=== PATIENT | female | born 1940 | race Caucasian/White ===

== ENCOUNTER 2020-12-10 08:12 | Outpatient (REF) | payer MEDICARE, MEDICAID, SELFPAY ==
[2020-12-10 09:36] LABS: Alanine Aminotransferase 22 U/L (0-31); Anion Gap 11 (12-20); Aspartate Amino Transferase 24 U/L (5-31); Blood Urea Nitrogen 11 mg/dL (9-16); Calcium 9.1 mg/dL (8.4-10.2); Carbon Dioxide 30 mmol/L (22-29); Chloride 101 mmol/L (96-108); Cholesterol 174 mg/dL; Estimated Glomerular Filt Rate > 60; Glucose Fasting 92 mg/dL (60-99); HDL Cholesterol 58 mg/dL; LDL Cholesterol Calculated 92 mg/dl; Potassium 4.7 mmol/l (3.3-5.1); Sodium 137 mmol/L (135-145); Triglycerides 122 mg/dL
[2020-12-10 10:01] LABS: Free T4 (Free Thyroxine) 1.17 ng/dL (0.71-1.85); Thyroid Stimulating Hormone 0.75 uIU/mL (0.32-4.0); Vitamin D 25-OH Total 27.1 ng/mL (>30)
== END 2020-12-10 08:13 | disposition home or self-care (01) ==
LOC: HO.LAB 08:12
PROVIDERS: PCP Internal Medicine; Visit Provider Internal Medicine
DX: I10 Essential (primary) hypertension (principal); E03.9 Hypothyroidism, unspecified; E78.5 Hyperlipidemia, unspecified; Z78.0 Asymptomatic menopausal state
CPT/HCPCS: 36415; 80048; 80061; 82306; 84439; 84443; 84450; 84460

== ENCOUNTER 2021-11-24 10:34 | Outpatient (REF) | payer MEDICARE, MEDICAID, SELFPAY ==
[2021-11-24 11:37] LABS: COVID-19 Test Negative (Negative)
== END 2021-11-24 10:35 | disposition home or self-care (01) ==
LOC: HO.LAB 10:34
PROVIDERS: Visit Provider Internal Medicine
DX: Z20.822 Contact with and (suspected) exposure to COVID-19 (principal)
CPT/HCPCS: 36415; 87635; C9803

== ENCOUNTER 2022-02-10 06:59 | Outpatient (REF) | payer MEDICARE, OTHER, SELFPAY ==
[2022-02-10 07:54] LABS: Alanine Aminotransferase 18 U/L (0-31); Aspartate Amino Transferase 22 U/L (5-31); Cholesterol 179 mg/dL; HDL Cholesterol 54 mg/dL; LDL Cholesterol Calculated 84 mg/dl; Triglycerides 208 mg/dL
[2022-02-10 08:18] LABS: Free T4 (Free Thyroxine) 1.12 ng/dL (0.71-1.85); Thyroid Stimulating Hormone 1.58 uIU/mL (0.32-4.0)
== END 2022-02-10 07:00 | disposition home or self-care (01) ==
LOC: HO.LAB 06:59
PROVIDERS: PCP Internal Medicine; Visit Provider Internal Medicine
DX: E03.9 Hypothyroidism, unspecified (principal); E78.5 Hyperlipidemia, unspecified; Z78.0 Asymptomatic menopausal state
CPT/HCPCS: 36415; 80061; 82306; 84439; 84443; 84450; 84460

== ENCOUNTER 2022-10-07 16:10 | Outpatient (REF) | payer MEDICARE, OTHER, SELFPAY ==
--- NOTE | ~2022-10-07 | US_ITS ---
EXAMINATION: US VENOUS ULTRASOUND WITH DOPPLER LOWER EXTREMITY, LEFT CLINICAL INFORMATION: Left lower extremity pain. COMPARISON: None TECHNIQUE: Ultrasound of the deep veins is performed from the hip to the calf with compression sonography and color and pulse Doppler assessment. Spectral analysis with color-flow imaging is performed. FINDINGS: There is normal venous compression and respiratory variation and augmented flow. The visualized common femoral vein, superficial femoral vein, profunda femoral vein, popliteal vein, and the trifurcation region shows no evidence of deep venous thrombosis. No left popliteal cyst. The subcutaneous soft tissues are unremarkable. If the patient's symptoms persist, followup ultrasound in 5 days 7 days might be of value to exclude proximal propagation from a non-visualized calf vein. US/US venous duplex LE LT IMPRESSION: No evidence of deep venous thrombosis in the visualized veins of the left lower extremity.
== END 2022-10-07 16:11 | disposition home or self-care (01) ==
LOC: HO.HMGCX 16:10
PROVIDERS: PCP Internal Medicine
DX: M79.662 Pain in left lower leg (principal)
CPT/HCPCS: 93971

== ENCOUNTER 2022-12-28 13:30 | Observation (INO) | payer MEDICARE, OTHER, SELFPAY ==
--- NOTE | ~2022-12-28 | CT_ITS ---
EXAMINATION: CT HEAD WITHOUT CONTRAST (STROKE PROTOCOL) CLINICAL INFORMATION: Stroke protocol. Expressive aphasia. COMPARISON: CTA head and neck 11/22/2019 TECHNIQUE: Contiguous axial imaging was performed from the skull base to vertex without intravenous administration of contrast. Additional 2-D coronal and sagittal reformatted images are generated on the CT workstation and uploaded to PACS. This CT examination was performed using dose optimization techniques as appropriate, variously including the following: *Automated exposure control *Adjustment of mA and/or kV according to patient size (this includes techniques or standardized protocols for targeted exams where dose is matched to indication/reason for exam; i.e. extremities or head) *Use of iterative reconstruction technique DLP: 711 mGy-cm FINDINGS: There is no intracranial hemorrhage, hematoma, or extra-axial fluid collection. The ventricles are normal in size. There is no hydrocephalus, edema, or mass effect. There are mild atrophic changes with prominence of the cortical sulci and fissures and cisterns. The sunshine-white matter differentiation appears normal. 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 Otherwise no mass lesion. There is no visible acute territorial infarct. The calvarium appears intact. There is no pneumocephalus or orbital emphysema. The visualized sinuses and middle ears and mastoid air cells show no significant mucosal thickening. There are no air-fluid levels. Results called to Dr. Peterson in the emergency department at [address]/CT head for stroke IMPRESSION: No acute intracranial abnormality.
--- NOTE | ~2022-12-28 | MR_ITS ---
MRI OF THE BRAIN WITHOUT IV CONTRAST INDICATION: Expressive aphasia. COMPARISON: Head CT and CTA head and neck performed earlier the same day. TECHNIQUE: Multiplanar multisequence MR imaging of the brain was obtained without IV contrast. FINDINGS: There is no hydrocephalus, extra-axial surface collection, or herniation. There is global cerebral volume loss and there is mild to moderate chronic microangiopathy. The major flow voids at the skull base are preserved. There is no acute infarct on diffusion-weighted imaging. There is no intracranial hemorrhage on the gradient recalled echo acquisition. There is a partially empty sella. The cerebellar tonsils are normally positioned. The cerebellum and brainstem are normal. The craniocervical junction is normal. Osseous marrow signal intensity is homogenous. The visualized soft tissues are unremarkable. MR/MR head/brain wo con IMPRESSION: No acute intracranial findings. No acute infarcts. There is global cerebral volume loss and there is mild to moderate chronic microangiopathy.
--- NOTE | ~2022-12-28 | XR_ITS ---
EXAMINATION: XR CHEST CLINICAL INFORMATION: Stroke. COMPARISON: None TECHNIQUE: 2 views of the chest were obtained. FINDINGS: No significant abnormality is noted involving the heart, lungs, mediastinum, bony thorax or soft tissues. XR/XR chest 2V IMPRESSION: Unremarkable chest examination.
--- NOTE | ~2022-12-28 | CT_ITS ---
EXAMINATION: CT ANGIOGRAM NECK WITH CONTRAST CT ANGIOGRAM BRAIN WITH CONTRAST CLINICAL INFORMATION: Stroke. Expressive aphasia. COMPARISON: Head CT 12/28/2022. TECHNIQUE: Test bolus sequences followed by intravenous administration 70 mL of Omnipaque 350. Helical imaging was performed in the axial plane from the thoracic inlet to the skull vertex. Delayed postcontrast imaging of the head was also performed. The data was processed at the development technologist workstation for generation of MIP sequences. Angled MIPs and volume rendered reformatted images were also generated at an offline 3D workstation under concurrent supervision. Stenoses are assessed in accordance with NASCET criteria unless otherwise indicated. This CT examination was performed using dose optimization techniques as appropriate, variously including the following: *Automated exposure control *Adjustment of mA and/or kV according to patient size (this includes techniques or standardized protocols for targeted exams where dose is matched to indication/reason for exam; i.e. 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 [There is no intracranial hemorrhage, hydrocephalus, extra-axial surface collection, midline shift, or other herniation pattern. [place] to white matter differentiation is diffusely maintained without evidence of an evolved acute territorial infarct. The basilar cisterns are preserved. No significant soft tissue abnormality. No acute osseous abnormality. The paranasal sinuses and the mastoid air cells are well aerated.] CERVICAL SOFT TISSUES AND LUNG APICES: Biapical pleural parenchymal scarring. There is multilevel cervical spondylosis. NECK CTA: [There is a classic 3 vessel configuration of the aortic arch. Proximal arch vessels are non-stenotic. The vertebral arteries are codominant. No significant ostial stenosis is visualized on either side. Both vertebral arteries are widely patent throughout their extracranial cervical course. Both common carotid arteries are normal in course and caliber.] Atherosclerotic calcification involving the carotid bifurcations bilaterally without significant stenosis involving the proximal internal carotid arteries on either side. BRAIN CTA: [There is normal opacification of major intracranial arteries. No focal flow-limiting stenosis nor discrete proximal large artery occlusion. No aneurysm. Timing of the contrast bolus allows assessment of the major dural venous sinuses, which all opacify normally] CT/CT angio head neck stroke IMPRESSION: No acute intracranial findings. No acute territorial infarcts. No significant arterial stenoses and no acute arterial occlusions within the head or neck. Covering provider paged with these findings at 2:22 PM on 12/28/2022.
[2022-12-28 13:35] VITALS: BP 154/70; BP 99/75; PULSE 71; PULSE 76; RESP 15; TEMP 37.2; O2SAT 95; O2SAT 97; BMI 27.1
[2022-12-28 13:37] LABS: Glucose, Whole Blood 91 mg/dL (60-115)
--- NOTE | 2022-12-28 13:37 | ECG_ITS ---
Test Reason : STROKE ALERT Blood Pressure : / mmHG Vent. Rate : 074 BPM Atrial Rate : 074 BPM P-R Int : 146 ms QRS Dur : 130 ms QT Int : 412 ms P-R-T Axes : 070 064 051 degrees QTc Int : 457 ms Normal sinus rhythm Right bundle branch block Abnormal ECG No previous ECGs available Referred By: Jorge Peterson Electronically Signed By:Enrique Harris
--- NOTE | 2022-12-28 13:38 | ED_ITS ---
HPI - Neuro Symptoms/Deficit General Chief Complaint: Stroke Stated Complaint: STROKE ALERT,LKW 2 HRS AGO,S/O HEADACHE,GARBLED Time Seen by Provider: 12/28/22 13:35 Source: patient, EMS and old records reviewed History of Present Illness HPI Narrative: Patient with new onset aphasia. Patient states she is having trouble finding words and is confirmed by EMS. According the patient she 1st noted the symptoms at 11:30. She was at [employer] and went to [employer] and she had a headache started noticed she could not speak right. The last time she was able to speak to someone was earlier this morning on the cellphone but she does not know what time. No prior history of stroke or headache like this. No nausea vomiting. No arm or leg weakness per patient. Related Data Home Medications Medication Instructions Recorded Confirmed timolol maleate 0.5 % eye drops 1 drp ophthalmic (eye) QAM 02/09/21 10/07/22 acetaminophen 500 mg tablet 500 mg PO Q6H PRN 02/17/22 10/07/22 (Tylenol Extra Strength) ibuprofen 200 mg tablet 400 mg PO Q8H 02/17/22 10/07/22 Previous Rx's Medication Instructions Recorded atorvastatin 20 mg tablet 20 mg PO DAILY #90 tabs 12/23/21 levothyroxine 88 mcg tablet 88 mcg PO DAILY #90 tabs 02/25/22 fluoxetine 10 mg capsule 10 mg PO DAILY #30 caps 09/04/22 fluoxetine 20 mg capsule 20 mg PO DAILY #30 caps 09/04/22 Allergies Allergy/AdvReac Type Severity Reaction Status Date / Time No Known Allergies Allergy Verified 10/07/22 14:59 Review of Systems Eyes: Comments: No vision trouble Cardiovascular: Comments: No chest pain or palpitation Respiratory: Comments: No difficulty breathing Gastrointestinal: Comments: No abdominal pain or vomiting PMFSH Past Medical History Medical History Acquired hypothyroidism Colonoscopy refused Dyslipidemia Hearing loss Mammogram declined Menopause Obsessive-compulsive disorder Ocular migraine Pain of left calf Surgical History No pertinent past surgical history Family History Family History Father Substance use disorder Brother Substance use disorder Brother Substance use disorder Social History Social History Housing Other:: subsidized housing Alcohol intake: never Patient Tobacco Use Status: Never used Tobacco e-Cigarette/Vaping Use: Never Used Advance Directives: Yes Advance Directives on File: Yes Advance Directives Date on File: 06/17/22 Current occupational status: retired Cognitive needs: No Hearing needs: Yes Vision needs: Yes Physical Exam Vital Signs: Vital Signs: Last Vital Signs Temp 98.8 F 12/28/22 16:03 Pulse 61 12/28/22 16:03 Resp 12 12/28/22 16:03 BP 139/77 12/28/22 16:03 Pulse Ox 100 12/28/22 16:03 O2 Del Method 12/28/22 16:03 BMI result Body Mass Index 27.1 Const: Other: Awake alert. No acute distress. Eyes: Other: Pupils equal round reactive to light. Extraocular muscles intact Resp: Other: No respiratory distress. Clear and equal bilaterally Cardio: Other: Regular rate and rhythm without murmurs rubs or gallops GI: Other: Soft nontender nondistended Skin: Other: Warm pink and dry Neuro: Other: Expressive aphasia with difficulty word finding. No facial droop Strength and upper arms equal bilaterally without pronator drift on a 12nd count. Lower extremity strength equal bilaterally. Medications Administered Generic Name Dose Route Start Last Admin Trade Name Freq PRN Reason Stop Dose Admin Sodium Chloride 500 mls @ 500 mls/hr 12/28/22 15:45 12/28/22 15:57 Ns IV 12/28/22 16:44 500 mls/hr .Q1H BRIT Administration Discontinued Medications Generic Name Dose Route Start Last Admin Trade Name Freq PRN Reason Stop Dose Admin Aspirin 300 mg 12/28/22 14:42 12/28/22 16:09 Aspirin 300 Mg Supp.Rect IN 12/28/22 14:43 Not Given ONCE ONE Iohexol 70 ml 12/28/22 14:07 12/28/22 14:07 Iohexol 350 Mg/Ml 100 Ml Infus..Btl IV 12/28/22 14:08 70 ml ONCE ONE Administration Ketorolac Tromethamine 30 mg 12/28/22 15:15 12/28/22 15:57 Ketorolac Tromethamine 15 Mg/Ml Vial IVPUSH 12/28/22 15:16 30 mg ONCE ONE Administration Metoclopramide HCl 10 mg 12/28/22 15:15 12/28/22 15:57 Metoclopramide Hcl 10 Mg/2 Ml Vial IVPUSH 12/28/22 15:16 10 mg ONCE ONE Administration Medical Decision Making Medical Decision Making MDM Narrative: Patient with headache and aphasia consistent with acute stroke, hemorrhagic versus thromboembolic. Last known well time is not specific. Time of symptom discovery was around 11 30, 2 hours ago which is when the headache started. The last time she is able to speak normally was this morning she thinks. She you think she had a cell phone conversation which was normal. She does not know the specific time of that however. Will do stroke protocol. Patient is likely not a thrombolytic candidate as her last known well time appears to be outside the window with time of symptom discovery approximately 2 hours prior to arrival.. Her NIH scale is very low as well. She does appear to be improving according to EMS. dental patient coordinator here to help evaluate patient. Await CT scan results 14:25. CT scan without contrast shows no abnormalities. CT angiography shows no large vessel occlusions Discussion with friends shows patient was confused at 09:30. Last known well time was sometime before that but is still unknown. She is well out of any thrombolytics window. She does not have a large vessel occlusion. Will treat with aspirin and hospitalize for further management 14:54. Neurology requesting MRI for potential mismatch. MRI ordered and patient brought for evaluation 16:44. MRI shows no obvious acute stroke. Chemistries are negative. Acute line while hospitalized patient for further workup and observation Lab Data 12/28/22 14:16 12/28/22 14:16 Labs: Lab Results 12/28/22 12/28/22 12/28/22 Range/Units 13:33 14:03 14:16 WBC 6.9 (4.8-10.8) X10*3/uL RBC 4.25 (4.20-5.50) X10*6/uL Hgb 13.2 (12.0-16.0) g/dl Hct 39.5 (37.0-47.0) % MCV 92.9 (80.0-98.0) fL MCH 31.1 (27.0-33.0) pg MCHC 33.4 (31.0-35.0) g/dl RDW 11.9 (11.0-16.0) % Plt Count 210 (160-400) X10*3/uL MPV 10.5 (9.4-12.3) fL Immature Gran % (Auto) 0.3 (0.0-0.4) % Neut % (Auto) 73.5 H (45-73) % Lymph % (Auto) 16.9 L (20-40) % [place] % (Auto) 6.6 (2-11) % Eos % (Auto) 2.0 (0-4) % Baso % (Auto) 0.7 (0-2) % Lymph # (Auto) 1.2 (1.2-4.9) X10*3/uL [place] # (Auto) 0.5 (0.1-1.2) X10*3/uL Eos # (Auto) 0.1 (0.0-0.4) X10*3/uL Baso # (Auto) 0.1 (0.0-0.2) X10*3/uL Abs Immat Gran (auto) 0.02 (0.00-0.03) X10*3/uL Absolute Neuts (auto) 5.0 (2.0-8.3) x10*3/uL Absolute Nucleated RBC 0.000 (0.0-0.012) X10*3/uL Nucleated RBC % (auto) 0.0 (0.0-0.2) /100WBC PT (10.0-13.1) SEC Whole Blood PT 13.1 (11.1-13.5) sec INR (0.9-1.1) Whole Blood INR 1.1 (0.9-1.1) D-Dimer High Sensitivty NG/ML Sodium (135-145) mmol/L Potassium (3.3-5.1) mmol/L Chloride (96-108) mmol/L Carbon Dioxide (22-29) mmol/L Anion Gap (12-20) BUN (9-16) mg/dL Creatinine (0.5-1.4) mg/dL Estim Creat Clear Calc Estimated GFR POC Glucose 91 (60-115) mg/dL Random Glucose (60-115) mg/dL Calcium (8.4-10.2) mg/dL Total Bilirubin (0.0-1.0) mg/dL AST (5-31) U/L ALT (0-31) U/L Alkaline Phosphatase (39-117) U/L Total Protein (6.5-8.0) g/dL Albumin (3.5-5.0) g/dL COVID-19 ([facility]) (Negative) COVID-19 Clin Com 12/28/22 12/28/22 12/28/22 Range/Units 14:16 14:16 14:16 WBC (4.8-10.8) X10*3/uL RBC (4.20-5.50) X10*6/uL Hgb (12.0-16.0) g/dl Hct (37.0-47.0) % MCV (80.0-98.0) fL MCH (27.0-33.0) pg MCHC (31.0-35.0) g/dl RDW (11.0-16.0) % Plt Count (160-400) X10*3/uL MPV (9.4-12.3) fL Immature Gran % (Auto) (0.0-0.4) % Neut % (Auto) (45-73) % Lymph % (Auto) (20-40) % [place] % (Auto) (2-11) % Eos % (Auto) (0-4) % Baso % (Auto) (0-2) % Lymph # (Auto) (1.2-4.9) X10*3/uL [place] # (Auto) (0.1-1.2) X10*3/uL Eos # (Auto) (0.0-0.4) X10*3/uL Baso # (Auto) (0.0-0.2) X10*3/uL Abs Immat Gran (auto) (0.00-0.03) X10*3/uL Absolute Neuts (auto) (2.0-8.3) x10*3/uL Absolute Nucleated RBC (0.0-0.012) X10*3/uL Nucleated RBC % (auto) (0.0-0.2) /100WBC PT 11.9 (10.0-13.1) SEC Whole Blood PT (11.1-13.5) sec INR 1.0 (0.9-1.1) Whole Blood INR (0.9-1.1) D-Dimer High Sensitivty 266 Cancelled NG/ML Sodium (135-145) mmol/L Potassium (3.3-5.1) mmol/L Chloride (96-108) mmol/L Carbon Dioxide (22-29) mmol/L Anion Gap (12-20) BUN (9-16) mg/dL Creatinine (0.5-1.4) mg/dL Estim Creat Clear Calc Estimated GFR POC Glucose (60-115) mg/dL Random Glucose (60-115) mg/dL Calcium (8.4-10.2) mg/dL Total Bilirubin (0.0-1.0) mg/dL AST (5-31) U/L ALT (0-31) U/L Alkaline Phosphatase (39-117) U/L Total Protein (6.5-8.0) g/dL Albumin (3.5-5.0) g/dL COVID-19 ([facility]) Negative (Negative) COVID-19 Clin Com See Note 12/28/22 Range/Units 15:54 WBC (4.8-10.8) X10*3/uL RBC (4.20-5.50) X10*6/uL Hgb (12.0-16.0) g/dl Hct (37.0-47.0) % MCV (80.0-98.0) fL MCH (27.0-33.0) pg MCHC (31.0-35.0) g/dl RDW (11.0-16.0) % Plt Count (160-400) X10*3/uL MPV (9.4-12.3) fL Immature Gran % (Auto) (0.0-0.4) % Neut % (Auto) (45-73) % Lymph % (Auto) (20-40) % [place] % (Auto) (2-11) % Eos % (Auto) (0-4) % Baso % (Auto) (0-2) % Lymph # (Auto) (1.2-4.9) X10*3/uL [place] # (Auto) (0.1-1.2) X10*3/uL Eos # (Auto) (0.0-0.4) X10*3/uL Baso # (Auto) (0.0-0.2) X10*3/uL Abs Immat Gran (auto) (0.00-0.03) X10*3/uL Absolute Neuts (auto) (2.0-8.3) x10*3/uL Absolute Nucleated RBC (0.0-0.012) X10*3/uL Nucleated RBC % (auto) (0.0-0.2) /100WBC PT (10.0-13.1) SEC Whole Blood PT (11.1-13.5) sec INR (0.9-1.1) Whole Blood INR (0.9-1.1) D-Dimer High Sensitivty NG/ML Sodium 139 (135-145) mmol/L Potassium 4.1 (3.3-5.1) mmol/L Chloride 104 (96-108) mmol/L Carbon Dioxide 28 (22-29) mmol/L Anion Gap 11 L (12-20) BUN 13 (9-16) mg/dL Creatinine 0.78 (0.5-1.4) mg/dL Estim Creat Clear Calc 51.1 Estimated GFR > 60 POC Glucose (60-115) mg/dL Random Glucose 109 (60-115) mg/dL Calcium 9.3 (8.4-10.2) mg/dL Total Bilirubin 0.8 (0.0-1.0) mg/dL AST 19 (5-31) U/L ALT 15 (0-31) U/L Alkaline Phosphatase 84 (39-117) U/L Total Protein 6.3 L (6.5-8.0) g/dL Albumin 3.9 (3.5-5.0) g/dL COVID-19 ([facility]) (Negative) COVID-19 Clin Com Discharge Plan Discharge Patient Disposition: Admitted As Inpatient Prescriptions: No Action atorvastatin 20 mg tablet 20 mg PO DAILY Qty: 90 3RF levothyroxine 88 mcg tablet 88 mcg PO DAILY Qty: 90 3RF fluoxetine 10 mg capsule 10 mg PO DAILY Qty: 30 5RF fluoxetine 20 mg capsule 20 mg PO DAILY Qty: 30 5RF timolol maleate 0.5 % drops 1 drp ophthalmic (eye) QAM acetaminophen [Tylenol Extra Strength] 500 mg tablet 500 mg PO Q6H PRN ibuprofen 200 mg tablet 400 mg PO Q8H
[2022-12-28] MEDS: iohexoL 350 MG/ML 100 ML INFUS..BTL 70 ML IV (14:07)
[2022-12-28 14:12] LABS: Prothrombin Time Whole Bld POC 13.1 sec (11.1-13.5); ~PT, ~INR - Anti Coag Clinic 1.1 (0.9-1.1)
[2022-12-28 14:22] LABS: MANUAL DIFF FLAG NO
[2022-12-28 14:26] LABS: Basophils Absolute Auto 0.1 X10*3/uL (0.0-0.2); Basophils Percent Auto 0.7 % (0-2); Eosinophils Absolute Auto 0.1 X10*3/uL (0.0-0.4); Hematocrit 39.5 % (37.0-47.0); Hemoglobin 13.2 g/dl (12.0-16.0); Imm Gran Abs Auto 0.02 X10*3/uL (0.00-0.03); Imm Gran Pct Auto 0.3 % (0.0-0.4); Lymphocytes Absolute Auto 1.2 X10*3/uL (1.2-4.9); Lymphocytes Percent Auto 16.9 % (20-40); Mean Corpuscular HGB Conc 33.4 g/dl (31.0-35.0); Mean Corpuscular Hemoglobin 31.1 pg (27.0-33.0); Mean Corpuscular Volume 92.9 fL (80.0-98.0); Mean Platelet Volume 10.5 fL (9.4-12.3); Monocytes Absolute Auto 0.5 X10*3/uL (0.1-1.2); Monocytes Percent Auto 6.6 % (2-11); Neutrophils Percent Auto 73.5 % (45-73); Platelet Count 210 X10*3/uL (160-400); Red Blood Count 4.25 X10*6/uL (4.20-5.50); Red Cell Distribution Width 11.9 % (11.0-16.0); White Blood Count 6.9 X10*3/uL (4.8-10.8)
[2022-12-28 14:39] LABS: COVID-19 Test Negative (Negative); IDNOW Serial# 16C4AD1C
--- NOTE | 2022-12-28 14:47 | PC.NURSE ---
patient to MRI with crm coordinator.
[2022-12-28 14:57] LABS: Prothrombin Time 11.9 SEC (10.0-13.1)
[2022-12-28 14:59] LABS: D Dimer High Sensitivity 266 NG/ML
--- NOTE | 2022-12-28 15:40 | MHC.STROKE ---
Addendum entered by Callie Mcnamara RN 12/29/22 11:26: I ROUNDED WITH DR LOPEZ THIS AM, PATIENT HAS A HISTORY OF MIGRAINES AND HAS BEEN UNDER A GREAT DEAL OF STRESS. STROKE EDUCATION WAS PROVIDED AND REINFORCED, SHE C/O ANXIETY AND SHE WAS STILL EXHIBITING SIGNS OF ANXIETY. REFER TO DR LOPEZ'S NOTE. Original Note: 1325 EMS PRE-NOTIFIED STROKE ALERT , ARRIVED AT [facility] [id number]. SEEN BY PROVIDER NIHSS =4, WORDING FINDING AND SLIGHT LOC, UNABLE TO ANSWER QUESTIONS ACCURATELY. DIRECT TO CT AND CTA H-N, NO BLEED, NO LVO, PATIENT BACK IN ROOM 5, C/0 SEVERE GROSSMAN. CLARIFYING LKW, THE TIME SEEMS TO BE CHANGING. 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 SHE WOKE THIS AM AT 0700, USED THE COMPUTER AND SENT SOME EMAILS. SHE LEFT HER RESIDENCE AT 0930 AND WAS SEEN BY HER FRIEND BRENDA AND SHE ONLY SAID ONE WORD TO HER WHICH WAS UNUSUAL . SHE WENT TO CONFESSION AND THE LANDSCAPE ARCHITECTURE TEACHER THOUGHT HER WORDS WERE SLURRED THIS WAS AROUND 1030, THEN SHE DROVE BACK TO HER RESIDENCE AT 1130 SPOKE WITH SOMEONE THERE AND WAS TOLD TO PULL THE EMERGENCY LIM. THIS WAS AROUND 1130. HER SYMPTOMS SEEM TO STUTTER, SPEAKING CLEARLY THEN SOMEWHAT DYSARTHRIC AND APHASIC. I FAILED HER ON THE INITIAL SWALLOW SCREEN BECAUSE SHE COULD NOT FOLLOW DIRECTIONS ENOUGH TO CLEAR HER THROAT. I REVIEWED THE CASE WITH DR LOPEZ, BASED ON THE CTA HE IS RECOMMENDING A STAT NON-CONTRAST MRI TO IDENTIFY IF THERE IS A NEW STROKE AND/OR MISMATCH. I BROUGHT HER TO MRI, 1432 REVIEWED THE SCAN WITH DR. LOPEZ, NO TPA BASED ON NO NEW STROKE IDENTIFIED. THIS WAS COMMUNICATED TO DR BARRIGA, AND RN. SHE THEN PASSED THE SWALLOW SCREEN THE SECOND TIME, SHE IS STILL C/O A SEVERE HEADACHE, LIGHT SENSITIVE. SHE TOLERATED THE MRI, I REVIEWED THE RESULTS WITH HER AND HER FRIEND.
[2022-12-28] MEDS: Metoclopramide HCl 10 MG/2 ML VIAL IVPUSH (15:57)
[2022-12-28] MEDS: 0.9 % Sodium Chloride 500 ML IV (15:57)
[2022-12-28] MEDS: Ketorolac Tromethamine 15 MG/ML VIAL 30 MG IVPUSH (15:57)
[2022-12-28 16:03] VITALS: BP 139/77; PULSE 61; RESP 12; TEMP 37.1; O2SAT 100
--- NOTE | 2022-12-28 16:13 | PC.NURSE ---
expressive aphasia is starting to clear. passed bedside swallow screen.
[2022-12-28 16:29] LABS: Alanine Aminotransferase 15 U/L (0-31); Albumin Level 3.9 g/dL (3.5-5.0); Alkaline Phosphatase 84 U/L (39-117); Anion Gap 11 (12-20); Aspartate Amino Transferase 19 U/L (5-31); Bilirubin Total 0.8 mg/dL (0.0-1.0); Blood Urea Nitrogen 13 mg/dL (9-16); Calcium 9.3 mg/dL (8.4-10.2); Carbon Dioxide 28 mmol/L (22-29); Chloride 104 mmol/L (96-108); Creatinine Clr Calc Pharmacy 51.1; Estimated Glomerular Filt Rate > 60; Glucose Random 109 mg/dL (60-115); Potassium 4.1 mmol/L (3.3-5.1); Sodium 139 mmol/L (135-145); Total Protein 6.3 g/dL (6.5-8.0)
[2022-12-28 16:50] LABS: Appearance Urine Clear; Color Urine Yellow; Glucose Urine UA Negative (Negative); Leukocyte Esterase Urine Negative (Negative); Nitrite Urine Negative (Negative); Specific Gravity - Urine >= 1.030 (1.005-1.025); UMIC TRIGGER UACC YES; Urine Blood Trace (Negative); Urine Ketones Negative (Negative); Urine Protein Negative (Neg-Trace)
[2022-12-28 16:51] LABS: TSH reflex Free T4 0.25 uIU/mL (0.32-4.0)
[2022-12-28 17:08] LABS: Bacteria Urine None Seen (None Seen); Hyaline Casts Urine 0-2 /LPF (0-2); RBC Urine 0-2 /HPF (0-2); Squamous Epithelial Cell Urine 0-2 /HPF (0-2); WBC Urine 0-5 /HPF (0-5)
--- NOTE | 2022-12-28 17:12 | PC.NURSE ---
patient ambulated to the bathroom with 1 assist. gait is steady. Speech therapy at the bedside. pt passed swallow exam
--- NOTE | 2022-12-28 17:28 | PHA.MEDREC ---
Pharmacy Consult ? Medication Reconciliation Pharmacy has completed the medication reconciliation. Spoke with patient in ED who knew all meds. Patient took medications this morning.
[2022-12-28 17:51] LABS: Free T4 (Free Thyroxine) 1.24 ng/dL (0.71-1.85)
[2022-12-28] MEDS: HYDROmorphone HCl 0.5 MG/0.5 ML SYRINGE 0.25 MG IVPUSH (18:25)
--- NOTE | 2022-12-28 19:19 | MHC.SL.SWA ---
Speech Pathologist Impression: Oral Phase Dysphagia Risk of Aspiration Due to: Dysphasia Diet Status: Liquid Consistency and Strategies for Safe Swallow: Liquid Intake Recommendation: Thin Liquid Intake Strategies: Unrestricted Solid Food Consistency: Dietary Recommendations: Chopped/Advanced (NDD3) Additional Modifications to Solid Foods: Patient can independently feed self. Check that patient has at least upper dentures in place for meal, provide oral care for denture use. Oral Medication Intake: Whole with Liquid Please contact the pharmacy regarding appropriate crushable or liquid drug formulations that are available whenever modified delivery is recommended. Compensatory Strategies and Precautions to be Taken for Safe Swallow: Liquids from Cup Small Bites and Sips Alternate Liquids/Solids Supervision While Eating and Drinking for Safe Swallow: None Needed Foods to Avoid: Hard, difficult to chew solids. Swallowing Recommended Treatments: Compens. Strategy Educat. Recommendation for Speech: Inpatient Speech Therapy Comment: Patient presents with swallow mostly WFL, with mild oral phase issues due to edentulous state/use of upper dentures only. Recommend UPGRADE diet to Chopped/Advanced (NDD3) for ease of mastication with THIN liquids, Pills whole with liquid. Recommend Speech/Language/Cognitive evaluation to further assess patients c/o difficulty understanding/making sense of what is being said. MEDICAL PRACTITIONERS to f/u one time for toleration of diet. ED MD and RN made aware of recommendations in person (at time of assessment, patient had not been assigned hospitalist). Frequency/Duration: 1 f/u for toleration of diet. Recommend speech/language/cognitive assessment. Date Range for Service Req: Timeline to reassess: Soil Analyst Clinican/Clinical Fellow: No Supervisory Statement: I have reviewed and agree with the student/clinical fellow's documentation: N/A Speech Language Pathologist: Rachel Kasper M.A., [facility]
[2022-12-28 19:33] VITALS: BP 107/50; PULSE 75; RESP 10; TEMP 37.3; O2SAT 95
--- NOTE | 2022-12-28 19:38 | PM.IMHP ---
History of Present Illness Date of Service: 12/28/22 Chief Complaint: Expressive aphasia This is a 82-year-old female with pertinent history of mixed hyperlipidemia, hypothyroidism, ocular migraine who presents to the emergency department for evaluation of expressive aphasia. Patient [place] [employer] around 12[place]00 when she had severe headache and could not speak. Patient states the headache was on the left side. Does have history of migraine. Patient states the inability to speak lasted for about 2 hours and has improved through today. No history of similar symptoms in the past. May have had nausea but denies vomiting. No fever, chills, tongue bite, jerking movement of extremities, urinary or bowel incontinence. She denies chest discomfort, palpitations, shortness of breath. No focal extremity weakness. The emergency department, neurology was consulted who recommended MRI which was negative for acute CVA. Review of Systems Constitutional: Constitutional: Reports no additional constitutional complaints and Reports headache(s) ENT: Reports headache(s) Cardiovascular: Cardiovascular: Reports no additional cardiovascular complaints Respiratory: Respiratory: Reports no additional respiratory complaints Gastrointestinal: Gastrointestinal: Reports no additional gastrointestinal complaints Genitourinary: Genitourinary: Reports no additional female genitourinary complaints Neurologic: Reports Abnormal speech present and Reports headache(s) [facility] Medical History Acquired hypothyroidism Colonoscopy refused Dyslipidemia Hearing loss Mammogram declined Menopause Obsessive-compulsive disorder Ocular migraine Pain of left calf Family History Father Substance use disorder Brother Substance use disorder Brother Substance use disorder Surgical History No pertinent past surgical history Social History Housing Other:: subsidized housing Alcohol intake: never Patient Tobacco Use Status: Never used Tobacco e-Cigarette/Vaping Use: Never Used Advance Directives: Yes Advance Directives on File: Yes Advance Directives Date on File: 06/17/22 Current occupational status: retired Cognitive needs: No Hearing needs: Yes Vision needs: Yes Meds Allergies Allergy/AdvReac Type Severity Reaction Status Date / Time No Known Allergies Allergy Verified 10/07/22 14:59 Active Medications: Current Medications Pharmacy Consult (Consult Rx Perform Med Rec) 1 each MISCELLANE ONCE PRN PRN Reason: Consult order Home Medications Medication Instructions Recorded Confirmed Last Taken Type timolol maleate 0.5 % eye drops 1 drp ophthalmic (eye) DAILY 02/09/21 12/28/22 12/28/22 History acetaminophen 500 mg tablet 500 mg PO Q6H PRN Pain (Scale 02/17/22 12/28/22 12/28/22 History (Tylenol Extra Strength) Score 1-3) atorvastatin 20 mg tablet 20 mg PO BEDTIME 12/28/22 12/28/22 12/27/22 History cholecalciferol (vitamin D3) 25 25 mcg PO DAILY 12/28/22 12/28/22 12/28/22 History mcg (1,000 unit) tablet (Vitamin D3) levothyroxine 88 mcg tablet 88 mcg PO DAILY@0630 12/28/22 12/28/22 12/28/22 History Physical Exam Vital Signs and Narrative: Vital Signs: Last Vital Signs Temp 99.2 F 12/28/22 19:33 Pulse 75 12/28/22 19:33 Resp 10 L 12/28/22 19:33 BP 107/50 L 12/28/22 19:33 Pulse Ox 95 12/28/22 19:33 O2 Del Method 12/28/22 19:33 BMI result Body Mass Index 27.1 Elderly female lying in bed in no distress Neck supple, no JVD Regular rate and rhythm, S1-S2 heard Regular breath sounds bilaterally, no wheezing or crackles appreciated Abdomen soft nontender, no guarding, no rigidity Patient is awake, alert and oriented to self, place, time and person ; strength 5/5 in bilateral upper and lower extremity, no aphasia, no pronator drift, no nystagmus, tongue and uvula midline Psych: Normal mood No pedal edema Neuro: Speech: Abnormal speech present Results Labs 12/28/22 14:16 12/28/22 15:54 Labs: Laboratory Results - last 24 hr 12/28/22 12/28/22 12/28/22 13:33 14:03 14:16 MCV 92.9 MCH 31.1 MCHC 33.4 RDW 11.9 Plt Count 210 MPV 10.5 Immature Gran % (Auto) 0.3 Neut % (Auto) 73.5 H Lymph % (Auto) 16.9 L [place] % (Auto) 6.6 Eos % (Auto) 2.0 Baso % (Auto) 0.7 Lymph # (Auto) 1.2 [place] # (Auto) 0.5 Eos # (Auto) 0.1 Baso # (Auto) 0.1 Abs Immat Gran (auto) 0.02 Absolute Neuts (auto) 5.0 Absolute Nucleated RBC 0.000 Nucleated RBC % (auto) 0.0 PT Whole Blood PT 13.1 INR Whole Blood INR 1.1 D-Dimer High Sensitivty Anion Gap Estim Creat Clear Calc Estimated GFR POC Glucose 91 Random Glucose Calcium Total Bilirubin AST ALT Alkaline Phosphatase Total Protein Albumin TSH Free T4 Urine Color Urine Appearance Urine pH Ur Specific [place] Urine Protein Urine Glucose (UA) Urine Ketones Urine Blood Urine Nitrite Ur Leukocyte Esterase Urine RBC Urine WBC Ur Squamous Epith Cells Urine Bacteria Hyaline Casts COVID-19 ([facility]) COVID-19 Clin Com 12/28/22 12/28/22 12/28/22 14:16 14:16 14:16 MCV MCH MCHC RDW Plt Count MPV Immature Gran % (Auto) Neut % (Auto) Lymph % (Auto) [place] % (Auto) Eos % (Auto) Baso % (Auto) Lymph # (Auto) [place] # (Auto) Eos # (Auto) Baso # (Auto) Abs Immat Gran (auto) Absolute Neuts (auto) Absolute Nucleated RBC Nucleated RBC % (auto) PT 11.9 Whole Blood PT INR 1.0 Whole Blood INR D-Dimer High Sensitivty 266 Cancelled Anion Gap Estim Creat Clear Calc Estimated GFR POC Glucose Random Glucose Calcium Total Bilirubin AST ALT Alkaline Phosphatase Total Protein Albumin TSH Free T4 Urine Color Urine Appearance Urine pH Ur Specific [place] Urine Protein Urine Glucose (UA) Urine Ketones Urine Blood Urine Nitrite Ur Leukocyte Esterase Urine RBC Urine WBC Ur Squamous Epith Cells Urine Bacteria Hyaline Casts COVID-19 ([facility]) Negative COVID-19 Clin Com See Note 12/28/22 12/28/22 12/28/22 15:54 15:54 16:42 MCV MCH MCHC RDW Plt Count MPV Immature Gran % (Auto) Neut % (Auto) Lymph % (Auto) [place] % (Auto) Eos % (Auto) Baso % (Auto) Lymph # (Auto) [place] # (Auto) Eos # (Auto) Baso # (Auto) Abs Immat Gran (auto) Absolute Neuts (auto) Absolute Nucleated RBC Nucleated RBC % (auto) PT Whole Blood PT INR Whole Blood INR D-Dimer High Sensitivty Anion Gap 11 L Estim Creat Clear Calc 51.1 Estimated GFR > 60 POC Glucose Random Glucose 109 Calcium 9.3 Total Bilirubin 0.8 AST 19 ALT 15 Alkaline Phosphatase 84 Total Protein 6.3 L Albumin 3.9 TSH 0.25 L Free T4 1.24 Urine Color Yellow Urine Appearance Clear Urine pH 6.0 Ur Specific [place] >= 1.030 H Urine Protein Negative Urine Glucose (UA) Negative Urine Ketones Negative Urine Blood Trace H Urine Nitrite Negative Ur Leukocyte Esterase Negative Urine RBC 0-2 Urine WBC 0-5 Ur Squamous Epith Cells 0-2 Urine Bacteria None Seen Hyaline Casts 0-2 COVID-19 ([facility]) COVID-19 Clin Com Imaging Radiologist's Impressions: Impressions Head CT 12/28/22 13:49 IMPRESSION: No acute intracranial abnormality. Head/Neck CTA 12/28/22 14:08 IMPRESSION: No acute intracranial findings. No acute territorial infarcts. No significant arterial stenoses and no acute arterial occlusions within the head or neck. Covering provider paged with these findings at 2:22 PM on 12/28/2022. Brain MRI 12/28/22 15:25 IMPRESSION: No acute intracranial findings. No acute infarcts. There is global cerebral volume loss and there is mild to moderate chronic microangiopathy. Chest X-Ray 12/28/22 16:35 IMPRESSION: Unremarkable chest examination. Assessment and Plan (1) Aphasia: Status: Acute Plan This is a 82-year-old female with pertinent history of mixed hyperlipidemia, hypothyroidism, ocular migraine who presents to the emergency department for evaluation of expressive aphasia. #. Headache with transient expressive aphasia: Unclear etiology. ?complex migraine. ?HaNDL syndrome. Neurology consulted from the ER, appreciate assistance #. Hypothyroidism: Continue Synthroid #. Mixed hyperlipidemia: On atorvastatin DVT prophylaxis: Lovenox 40 mg daily Full code Regular diet Time Spent With Patient Time: Total time managing care of this patient today ____ minutes. Quality Stroke Does the patient have a stroke diagnosis?: No VTE Prior VTE?: No VTE Risk Level:: Medical - moderate - high VTE Device Contraindication: Treatment Not Indicated VTE Drug Contraindication: N/A - Med Ordered
[2022-12-28 20:47] VITALS: BP 118/60; PULSE 84; RESP 14
--- NOTE | 2022-12-28 21:27 | PC.NURSE ---
pt resting comfortably on stretcher. pt sitting up right eating meal. swallowing food well. no new needs at this time
[2022-12-28] MEDS: Enoxaparin Sodium 40 MG/0.4 ML SYRINGE SUBCUT (21:57)
[2022-12-28] MEDS: Atorvastatin Calcium 20 MG TABLET PO (21:57)
[2022-12-28] MEDS: 0.9 % Sodium Chloride Flush 3 ML SYRINGE IVFLUSH (21:58)
[2022-12-28 22:01] VITALS: BMI 26.2
[2022-12-28 23:57] VITALS: BP 119/57; PULSE 65; RESP 20; TEMP 36.7; O2SAT 99
[2022-12-29 03:35] VITALS: BP 114/56; PULSE 70; RESP 20; TEMP 36.7; O2SAT 98
[2022-12-29 06:23] LABS: MANUAL DIFF FLAG NO
[2022-12-29 06:29] LABS: Basophils Absolute Auto 0.1 X10*3/uL (0.0-0.2); Basophils Percent Auto 0.8 % (0-2); Eosinophils Absolute Auto 0.3 X10*3/uL (0.0-0.4); Eosinophils Percent Auto 5.5 % (0-4); Hematocrit 37.6 % (37.0-47.0); Hemoglobin 12.4 g/dl (12.0-16.0); Imm Gran Abs Auto 0.02 X10*3/uL (0.00-0.03); Imm Gran Pct Auto 0.3 % (0.0-0.4); Lymphocytes Absolute Auto 1.3 X10*3/uL (1.2-4.9); Lymphocytes Percent Auto 21.8 % (20-40); Mean Corpuscular Hemoglobin 30.5 pg (27.0-33.0); Mean Corpuscular Volume 92.6 fL (80.0-98.0); Mean Platelet Volume 10.3 fL (9.4-12.3); Monocytes Absolute Auto 0.6 X10*3/uL (0.1-1.2); Neutrophils Absolute Auto 3.7 x10*3/uL (2.0-8.3); Neutrophils Percent Auto 61.6 % (45-73); Platelet Count 188 X10*3/uL (160-400); Red Blood Count 4.06 X10*6/uL (4.20-5.50); Red Cell Distribution Width 11.9 % (11.0-16.0)
[2022-12-29] MEDS: Levothyroxine Sodium 88 MCG TABLET PO (06:50)
[2022-12-29 07:03] LABS: Cholesterol 181 mg/dL; HDL Cholesterol 51 mg/dL; LDL Cholesterol Calculated 100 mg/dl; Triglycerides 150 mg/dL
[2022-12-29 07:10] LABS: Anion Gap 13 (12-20); Blood Urea Nitrogen 15 mg/dL (9-16); Carbon Dioxide 26 mmol/L (22-29); Chloride 106 mmol/L (96-108); Estimated Glomerular Filt Rate > 60; Glucose Random 84 mg/dL (60-115); Potassium 4.5 mmol/L (3.3-5.1); Sodium 140 mmol/L (135-145)
[2022-12-29 07:20] VITALS: BP 103/59; PULSE 80; RESP 20; TEMP 37.1; O2SAT 96
[2022-12-29] MEDS: 0.9 % Sodium Chloride Flush 3 ML SYRINGE IVFLUSH (08:49)
[2022-12-29] MEDS: timoloL maleate 0.5 % Oph Sol 5 ML DRBTL 1 DROP EYE-BOTH (08:50)
[2022-12-29] MEDS: Cholecalciferol (Vitamin D3) 25 MCG TABLET PO (08:50)
--- NOTE | 2022-12-29 10:37 | MHC.CM.PN ---
pt lives at [facility] she is independent covid vax x 5 has own ride home dc plan home no servceis
[2022-12-29] MEDS: Aspirin Enteric Coated 81 MG TABLET.DR PO (10:48)
--- NOTE | 2022-12-29 12:10 | MHC.SLORD ---
Addendum entered and electronically signed by Tonia Reyes MA, CCC-CEO ZIFF DAVIS 12/30/22 10:33: D.S. Original Note: Speech Language Pathology Order Status: Attempted to see pt late in AM, pt sitting at table waiting for d/c paperwork. Therefore, pt not seen for dysphagia tx or speech/lang/cog screening.
--- NOTE | 2022-12-29 12:43 | PM.NEUROCN ---
History of Present Illness Data of Consult Service Date: 12/29/22 Primary Care Provider: Ivy Lee MD HPI Reason for consult: Transient inability to speak This is a 82-year-old female with history of mixed hyperlipidemia, hypothyroidism, ocular migraine with no associated headache, who was under extreme stress and very upset with the who presented to the emergency department for evaluation of expressive aphasia.? Patient states she was at the [employer] around 12:00 when she had severe headache and could not speak.?She first noticed difficulty speaking after 9:30 in the morning and then developed a bad headache. She did not have the usual optiical migraines. The difficulty speaking resolved after 2 hours and she feels back to normal. She had a CT CTA and an MRI of the brain, which were unremarkable. No acute stroke and no occlusive disease was seen. No history of similar symptoms in the past. Review of Systems Constitutional: Constitutional: Reports no additional constitutional complaints and Reports headache(s) ENT: Reports headache(s) Cardiovascular: Cardiovascular: Reports no additional cardiovascular complaints Respiratory: Respiratory: Reports no additional respiratory complaints Gastrointestinal: Gastrointestinal: Reports no additional gastrointestinal complaints Neurologic: Reports Abnormal speech present and Reports headache(s) PMFSH Past Medical History Medical History Acquired hypothyroidism Colonoscopy refused Dyslipidemia Hearing loss Mammogram declined Menopause Obsessive-compulsive disorder Ocular migraine Pain of left calf Family History Family History Father Substance use disorder Brother Substance use disorder Brother Substance use disorder Surgical History Surgical History No pertinent past surgical history Social History Social History Household Members: None Housing: Other Housing Other:: independent living (in own apartment) Do you presently have visiting nurse or other home services: No Alcohol intake: never Patient Tobacco Use Status: Never used Tobacco e-Cigarette/Vaping Use: Never Used Advance Directives Date on File: 06/17/22 service: No Current occupational status: retired Cognitive needs: No Hearing needs: Yes Vision needs: Yes Meds Allergies Allergy/AdvReac Type Severity Reaction Status Date / Time No Known Allergies Allergy Verified 10/07/22 14:59 Active Medications: Current Medications Acetaminophen (Acetaminophen 325 Mg Tablet) 650 mg PO Q6H PRN PRN Reason: Pain, Mild (Pain Scale 1-3) Aspirin (Aspirin Enteric Coated 81 Mg Tablet.Dr) 81 mg PO DAILY [facility] Last Admin: 12/29/22 10:48 Dose: 81 mg Atorvastatin Calcium (Atorvastatin Calcium 20 Mg Tablet) 20 mg PO BEDTIME [facility] Last Admin: 12/28/22 21:57 Dose: 20 mg Enoxaparin Sodium (Enoxaparin Sodium 40 Mg/0.4 Ml Syringe) 40 mg SUBCUT Q24H [facility] Last Admin: 12/28/22 21:57 Dose: 40 mg Levothyroxine Sodium (Levothyroxine Sodium 88 Mcg Tablet) 88 mcg PO DAILY@0630 [facility] Last Admin: 12/29/22 06:50 Dose: 88 mcg Melatonin (Melatonin 3 Mg Tablet) 6 mg PO BEDTIME PRN PRN Reason: Insomnia Ondansetron HCl (Ondansetron Hcl 4 Mg/2 Ml Vial) 4 mg IVPUSH Q8H PRN PRN Reason: Nausea and Vomiting Pharmacy Consult (Consult Rx Perform Med Rec) 1 each MISCELLANE ONCE PRN PRN Reason: Consult order Sodium Chloride (0.9 % Sodium Chloride Flush 3 Ml Syringe) 3 ml IVFLUSH QSHIFT [facility] Last Admin: 12/29/22 08:49 Dose: 3 ml Timolol Maleate (Timolol Maleate 0.5 % Oph [place] 5 Ml Drbtl) 1 drop EYE-BOTH DAILY [facility] Last Admin: 12/29/22 08:50 Dose: 1 drop Vitamin D (Cholecalciferol (Vitamin D3) 25 Mcg Tablet) 25 mcg PO DAILY [facility] Last Admin: 12/29/22 08:50 Dose: 25 mcg Home Medications Medication Instructions Recorded Confirmed Last Taken Type timolol maleate 0.5 % eye drops 1 drp ophthalmic (eye) DAILY 02/09/21 12/28/22 12/28/22 History acetaminophen 500 mg tablet 500 mg PO Q6H PRN Pain (Scale 02/17/22 12/28/22 12/28/22 History (Tylenol Extra Strength) Score 1-3) atorvastatin 20 mg tablet 20 mg PO BEDTIME 12/28/22 12/28/22 12/27/22 History cholecalciferol (vitamin D3) 25 25 mcg PO DAILY 12/28/22 12/28/22 12/28/22 History mcg (1,000 unit) tablet (Vitamin D3) levothyroxine 88 mcg tablet 88 mcg PO DAILY@0630 12/28/22 12/28/22 12/28/22 History Physical Exam Vital Signs: Vital Signs: Last Vital Signs Temp 98.7 F 12/29/22 07:20 Pulse 80 12/29/22 07:20 Resp 20 12/29/22 07:20 BP 103/59 L 12/29/22 07:20 Pulse Ox 96 12/29/22 07:20 O2 Del Method 12/29/22 07:20 BMI result Body Mass Index 26.2 Const: Other: Awake alert. No acute distress. Eyes: Other: Pupils equal round reactive to light. Extraocular muscles intact Resp: Other: No respiratory distress. Clear and equal bilaterally Cardio: Other: Regular rate and rhythm without murmurs rubs or gallops GI: Other: Soft nontender nondistended Skin: Other: Warm pink and dry Neuro: Other: Her speech is normal with no difficulty expressing herself. No dysarthria except when she takes out her dentures No facial droop Strength and upper arms equal bilaterally without pronator drift Lower extremity strength equal bilaterally. Speech: Abnormal speech present Results Labs 12/29/22 05:54 12/29/22 05:54 Labs: Short CBC 12/28/22 12/29/22 Range/Units 14:16 05:54 WBC 6.9 6.0 (4.8-10.8) X10*3/uL Hgb 13.2 12.4 (12.0-16.0) g/dl Hct 39.5 37.6 (37.0-47.0) % Plt Count 210 188 (160-400) X10*3/uL BMP 12/28/22 12/29/22 15:54 05:54 Sodium 139 140 Potassium 4.1 4.5 Chloride 104 106 Carbon Dioxide 28 26 BUN 13 15 Creatinine 0.78 0.80 Calcium 9.3 9.0 Liver Function 12/28/22 Range/Units 15:54 Total Bilirubin 0.8 (0.0-1.0) mg/dL AST 19 (5-31) U/L ALT 15 (0-31) U/L Alkaline Phosphatase 84 (39-117) U/L Albumin 3.9 (3.5-5.0) g/dL Urine 12/28/22 Range/Units 16:42 Urine Color Yellow Urine Appearance Clear Urine pH 6.0 (5.0-9.0) Ur Specific [place] >= 1.030 H (1.005-1.025) Urine Protein Negative (Neg-Trace) mg/dL Urine Glucose (UA) Negative (Negative) mg/dL Assessment and Plan (1) Aphasia: Status: Acute I believe a transient speech impediment was in migraine phenomena as she has no evidence of vascular disease on her studies and no abnormality on the MRI to suggest left hemisphere ischemia. The background of optical migraines in the past this is the most likely explanation. No further workup or intervention is necessary. She should continue on her statin as before and may use aspirin 81 mg a day for a few months and then stop it. Plan This is a 82-year-old female with pertinent history of mixed hyperlipidemia, hypothyroidism, ocular migraine who presents to the emergency department for evaluation of expressive aphasia. #. Headache with transient expressive aphasia: Unclear etiology. ?complex migraine. ?HaNDL syndrome. Neurology consulted from the ER, appreciate assistance #. Hypothyroidism: Continue Synthroid #. Mixed hyperlipidemia: On atorvastatin DVT prophylaxis: Lovenox 40 mg daily Full code Regular diet Time Spent With Patient Time: Total time managing care of this patient today ____ minutes. Procedures Date of Service Date of Service: 12/29/22
--- NOTE | 2022-12-29 12:55 | PM.DS ---
DS: Providers Provider Date of Service: 12/29/22 Date of admission: 12/28/22 19:36 Primary care physician: Ivy Lee MD Consults: 12/28/22 19:36 Consult to Neurology Routine Consulting Provider: [facility] Reason for consultation: expressive aphasia DS: Diagnosis Discharge Diagnosis (1) Aphasia: Status: Acute DS: Summary Hospital Course Hospital Course: from initial hpi: hief Complaint: Expressive aphasia This is a 82-year-old female with pertinent history of mixed hyperlipidemia, hypothyroidism, ocular migraine who presents to the emergency department for evaluation of expressive aphasia.? Patient states she was at the [employer] around 12:00 when she had severe headache and could not speak.? Patient states the headache was on the left side.? Does have history of migraine.? Patient states the inability to speak lasted for about 2 hours and has improved through today.? No history of similar symptoms in the past.? May have had nausea but denies vomiting.? No fever, chills, tongue bite, jerking movement of extremities, urinary or bowel incontinence.? She denies chest discomfort, palpitations, shortness of breath.? No focal extremity weakness. hospital course: Patient was admitted for aphasia. I was negative for CVA. Was seen by neurology felt this was likely complicated migraine. Recommended empiric baby aspirin, continue statin. For hypothyroidism she was continued Synthroid. Hyperlipidemia continue on statin. Patient is feeling better will be discharged home. Time Spent with Patient Time attestation: Total time managing care of this patient today ____ minutes. Discharge coordination time: Greater than 30 minutes Quality: Safe Use of Opioids Does Pt have an Active Cancer Diagnosis on the Problem List?: No Quality: Stroke Does the patient have a stroke diagnosis?: No Physical Exam Vital Signs: Vital Signs: Last Vital Signs Temp 98.7 F 12/29/22 07:20 Pulse 80 12/29/22 07:20 Resp 20 12/29/22 07:20 BP 103/59 L 12/29/22 07:20 Pulse Ox 96 12/29/22 07:20 O2 Del Method 12/29/22 07:20 BMI result Body Mass Index 26.2 General: AO X 3, no acute distress Resp: CTA bilateral, no accessory muscles used CVS: S1,S2,RRR GI: soft, non tender, non distended Neuro: motor grossly intact, alert Psych: appropriate affect, appropriate insight DS: Data Data Completed and Pending Labs on day of discharge: Laboratory Results - last 24 hr 12/28/22 12/28/22 12/28/22 13:33 14:03 14:16 WBC 6.9 RBC 4.25 Hgb 13.2 Hct 39.5 MCV 92.9 MCH 31.1 MCHC 33.4 RDW 11.9 Plt Count 210 MPV 10.5 Immature Gran % (Auto) 0.3 Neut % (Auto) 73.5 H Lymph % (Auto) 16.9 L [place] % (Auto) 6.6 Eos % (Auto) 2.0 Baso % (Auto) 0.7 Lymph # (Auto) 1.2 [place] # (Auto) 0.5 Eos # (Auto) 0.1 Baso # (Auto) 0.1 Abs Immat Gran (auto) 0.02 Absolute Neuts (auto) 5.0 Absolute Nucleated RBC 0.000 Nucleated RBC % (auto) 0.0 PT Whole Blood PT 13.1 INR Whole Blood INR 1.1 D-Dimer High Sensitivty Sodium Potassium Chloride Carbon Dioxide Anion Gap BUN Creatinine Estim Creat Clear Calc Estimated GFR POC Glucose 91 Random Glucose Calcium Total Bilirubin AST ALT Alkaline Phosphatase Total Protein Albumin Triglycerides Cholesterol LDL Cholesterol, Calc HDL Cholesterol TSH Free T4 Urine Color Urine Appearance Urine pH Ur Specific [place] Urine Protein Urine Glucose (UA) Urine Ketones Urine Blood Urine Nitrite Ur Leukocyte Esterase Urine RBC Urine WBC Ur Squamous Epith Cells Urine Bacteria Hyaline Casts COVID-19 ([facility]E) COVID-19 Clin Com 12/28/22 12/28/22 12/28/22 14:16 14:16 14:16 WBC RBC Hgb Hct MCV MCH MCHC RDW Plt Count MPV Immature Gran % (Auto) Neut % (Auto) Lymph % (Auto) [place] % (Auto) Eos % (Auto) Baso % (Auto) Lymph # (Auto) [place] # (Auto) Eos # (Auto) Baso # (Auto) Abs Immat Gran (auto) Absolute Neuts (auto) Absolute Nucleated RBC Nucleated RBC % (auto) PT 11.9 Whole Blood PT INR 1.0 Whole Blood INR D-Dimer High Sensitivty 266 Cancelled Sodium Potassium Chloride Carbon Dioxide Anion Gap BUN Creatinine Estim Creat Clear Calc Estimated GFR POC Glucose Random Glucose Calcium Total Bilirubin AST ALT Alkaline Phosphatase Total Protein Albumin Triglycerides Cholesterol LDL Cholesterol, Calc HDL Cholesterol TSH Free T4 Urine Color Urine Appearance Urine pH Ur Specific [place] Urine Protein Urine Glucose (UA) Urine Ketones Urine Blood Urine Nitrite Ur Leukocyte Esterase Urine RBC Urine WBC Ur Squamous Epith Cells Urine Bacteria Hyaline Casts COVID-19 (EARLENE) Negative COVID-19 Clin Com See Note 12/28/22 12/28/22 12/28/22 15:54 15:54 16:42 WBC RBC Hgb Hct MCV MCH MCHC RDW Plt Count MPV Immature Gran % (Auto) Neut % (Auto) Lymph % (Auto) [place] % (Auto) Eos % (Auto) Baso % (Auto) Lymph # (Auto) [place] # (Auto) Eos # (Auto) Baso # (Auto) Abs Immat Gran (auto) Absolute Neuts (auto) Absolute Nucleated RBC Nucleated RBC % (auto) PT Whole Blood PT INR Whole Blood INR D-Dimer High Sensitivty Sodium 139 Potassium 4.1 Chloride 104 Carbon Dioxide 28 Anion Gap 11 L BUN 13 Creatinine 0.78 Estim Creat Clear Calc 51.1 Estimated GFR > 60 POC Glucose Random Glucose 109 Calcium 9.3 Total Bilirubin 0.8 AST 19 ALT 15 Alkaline Phosphatase 84 Total Protein 6.3 L Albumin 3.9 Triglycerides Cholesterol LDL Cholesterol, Calc HDL Cholesterol TSH 0.25 L Free T4 1.24 Urine Color Yellow Urine Appearance Clear Urine pH 6.0 Ur Specific [place] >= 1.030 H Urine Protein Negative Urine Glucose (UA) Negative Urine Ketones Negative Urine Blood Trace H Urine Nitrite Negative Ur Leukocyte Esterase Negative Urine RBC 0-2 Urine WBC 0-5 Ur Squamous Epith Cells 0-2 Urine Bacteria None Seen Hyaline Casts 0-2 COVID-19 ([facility]ARLENE) COVID-19 Clin Com 12/29/22 12/29/22 12/29/22 05:54 05:54 05:54 WBC 6.0 RBC 4.06 L Hgb 12.4 Hct 37.6 MCV 92.6 MCH 30.5 MCHC 33.0 RDW 11.9 Plt Count 188 MPV 10.3 Immature Gran % (Auto) 0.3 Neut % (Auto) 61.6 Lymph % (Auto) 21.8 [place] % (Auto) 10.0 Eos % (Auto) 5.5 H Baso % (Auto) 0.8 Lymph # (Auto) 1.3 [place] # (Auto) 0.6 Eos # (Auto) 0.3 Baso # (Auto) 0.1 Abs Immat Gran (auto) 0.02 Absolute Neuts (auto) 3.7 Absolute Nucleated RBC 0.000 Nucleated RBC % (auto) 0.0 PT Whole Blood PT INR Whole Blood INR D-Dimer High Sensitivty Sodium 140 Potassium 4.5 Chloride 106 Carbon Dioxide 26 Anion Gap 13 BUN 15 Creatinine 0.80 Estim Creat Clear Calc 49.0 Estimated GFR > 60 POC Glucose Random Glucose 84 Calcium 9.0 Total Bilirubin AST ALT Alkaline Phosphatase Total Protein Albumin Triglycerides 150 Cholesterol 181 LDL Cholesterol, Calc 100 HDL Cholesterol 51 TSH Free T4 Urine Color Urine Appearance Urine pH Ur Specific [place] Urine Protein Urine Glucose (UA) Urine Ketones Urine Blood Urine Nitrite Ur Leukocyte Esterase Urine RBC Urine WBC Ur Squamous Epith Cells Urine Bacteria Hyaline Casts COVID-19 ([facility]ARLENE) COVID-19 Clin Com Discharge Plan Discharge Anticipated Discharge Date/Time: 12/29/22 12:52 Patient Disposition: Home, Self-Care Discharge Diagnosis: complicated migraine Referrals: Ivy Lee MD [Primary Care Provider] - 1 Week Discharge Medications: New aspirin 81 mg Tablet,Delayed Release (Dr/Ec) 81 mg PO DAILY Qty: 30 0RF Continued cholecalciferol (vitamin D3) [Vitamin D3] 25 mcg (1,000 unit) Tablet 25 mcg PO DAILY atorvastatin 20 mg tablet 20 mg PO BEDTIME levothyroxine 88 mcg tablet 88 mcg PO DAILY@0630 timolol maleate 0.5 % drops 1 drp ophthalmic (eye) DAILY acetaminophen [Tylenol Extra Strength] 500 mg tablet 500 mg PO Q6H PRN (Reason: Pain (Scale Score 1-3)) Discharge Orders: Discharge Order (Routine); Ordered 12/29/22 Ordered By: Ray Figueroa Diet: Advance to usual diet Activity on Discharge: As tolerated Stand Alone Forms: Patient Portal Discharge page Care Plan Goals: recovery Health Concerns: migraine Plan of Treatment: asa, statin Assessment: see above
--- NOTE | 2022-12-29 13:02 | MHC.CM.PN ---
pt dcd home no skilled services ordered by
== END 2022-12-29 13:43 | disposition home or self-care (01) ==
LOC: HO.ED 16:44 → HO.EDOVER 19:41 → HO.IMC 20:15
PROVIDERS: Admitting Provider Student in an Organized Health Care Education/Training Program; Emergency Provider Emergency Medicine; PCP Internal Medicine; Visit Provider Internal Medicine
DX: R47.01 Aphasia (principal); E03.9 Hypothyroidism, unspecified; G43.109 Migraine with aura, not intractable, without status migrainosus; E78.2 Mixed hyperlipidemia; Z79.899 Other long term (current) drug therapy; Z20.822 Contact with and (suspected) exposure to COVID-19
CPT/HCPCS: 36415; 70450; 70496; 70498; 70551; 71046; 80048; 80053; 80061; 81001; 82947; 84439; 84443; 85025; 85379; 85610; 87635; 93005; 96361; 96372; 96374; 96375; 99222; 99285; J1170; J1650; J1885; J2765; Q9967

== ENCOUNTER 2023-01-07 09:18 | Outpatient (AMB) | payer MEDICARE, MEDICAID, SELFPAY ==
[2023-01-07 10:04] VITALS: BP 102/60; PULSE 64; O2SAT 96; BMI 26.0
--- NOTE | 2023-01-07 10:04 | MHC.PC.OV ---
Vital Signs 01/07/23 10:04 Height 5 ft 3 in Weight 147 lb BMI 26.0 BP 102/60 Blood Pressure Location Rt brachial Position Sitting Pulse 64 Pulse Source Pulse Oximeter Pulse Oximetry (%) 96 Oxygen Delivery Method Room Air Intake Visit Reasons: F/U [facility] Intake Note: Pt is here today to f/u [facility] Allergies No Known Allergies Allergy (Verified 04/26/24 15:12) Medication List - Last Reconciled 01/07/23 by Ivy Lee MD acetaminophen (Tylenol Extra Strength) 500 mg PO Q6H PRN aspirin 81 mg PO DAILY atorvastatin 20 mg PO BEDTIME cholecalciferol (vitamin D3) (Vitamin D3) 25 mcg PO DAILY levothyroxine 88 mcg PO DAILY@0630 timolol maleate 0.5% 1 drp ophthalmic (eye) DAILY Tobacco use date assessed: 01/07/23 Fall risk assessment: No Falls in past year Last assessed Fall Risk: 01/07/23 HPI F/U [facility] HPI Details 82-year-old lady history of hyperlipidemia, hypothyroidism, ocular migraine, here today for follow-up, and ffup after a recent ER visit 12/29/22. She initially presented to the emergency department for evaluation of expressive aphasia.? Patient states she was at the [employer] around 12:00 when she had severe headache and could not speak.? Patient states the headache was on the left side.? Patient states the inability to speak lasted for about 2 hours and has improved through today.? No history of similar symptoms in the past.? This was accompanied by nausea but no vomiting, no fever, chills, tongue bite, jerking movement of extremities, urinary or bowel incontinence, denies chest discomfort, palpitations, shortness of breath, no focal extremity weakness. CT of head negative for CVA.? Was seen by neurology felt this was likely complicated migraine.? Recommended patient start baby aspirin, continue statin.? Has not had any recurrence since since her discharge, feels well at present time [facility] Medical History Left knee pain Hip pain, left Frequent falls Anxiety and depression Glaucoma Impaired fasting glucose Hx of migraine headaches Pain of left calf Ocular migraine Hearing loss Mammogram declined Colonoscopy refused Obsessive-compulsive disorder Menopause Dyslipidemia Acquired hypothyroidism Surgical History No pertinent past surgical history Family History Father Substance use disorder Brother Substance use disorder Brother Substance use disorder Social History Household Members: None Housing: Other Housing Other:: independent living (in own apartment) Do you presently have visiting nurse or other home services: No Alcohol intake: never Patient Tobacco Use Status: Never used Tobacco e-Cigarette/Vaping Use: Never Used Advance Directives Date on File: 06/17/22 service: No Current occupational status: retired Cognitive needs: No Hearing needs: Yes Vision needs: Yes Questionnaire PHQ-9 Over the last 2 weeks, how often have you been bothered by any of the following problems? 1. Little interest or pleasure in doing things: not at all 2. Feeling down, depressed, or hopeless: not at all 3. Trouble falling or staying asleep, or sleeping too much: not at all 4. Feeling tired or having little energy: not at all 5. Poor appetite or overeating: not at all 6. Feeling bad about yourself - or that you are a failure or have let yourself or your family down: not at all 7. Trouble concentrating on things, such as reading the newspaper or watching television: not at all 8. Moving or speaking so slowly that other people could have noticed. Or the opposite - being so fidgety or restless that you have been moving around a lot more than usual: not at all 9. Thoughts that you would be better off or of hurting yourself in some way: not at all Total score: 0 Depression Screening Interpretation: Negative [id number] - PHQ-9 Billing: Yes Source: Developed by Drs. Jeff Warner, Anjelica Encinas, Diomedes Kemp and colleagues, with an educational lauren from [employer]. Thrive Questionnaire Declines Thrive assessment: No Date Thrive assessed: 01/07/23 I am a: Patient What is your living situation today?: I have a steady place to live Within the past 12 months, did the food you bought not last and you didn't have the money to get more?: Never true Within the past 12 months, did you worry whether your food would run out before you got money to buy more?: Never true Do you have trouble paying for medicines?: No Do you have trouble getting transportation to medical appointments?: No Do you have trouble paying your heating and electricity bill?: No Do you have trouble taking care of your child, family member or friend?: No Do you have trouble with day-to-day activities such as bathing, preparing meals, shopping, managing finances, etc.?: No Are you currently unemployed and looking for a job?: No Are you interested in more education?: No AUDIT C Alcohol Use Questionnaire (AUDIT-C) 1. How often do you have a drink containing alcohol?: Never Total Score: 0 ANJANA-7 AMB Questionnaire ANJANA-7 Date ANJANA - 7 assessed: 05/27/22 Feeling nervous, anxious, or on edge: 1 = Several days Not being able to stop or control worryin = Not at all Worrying too much about different things: 1 = Several days Trouble relaxin = Several days Being so restless that it is hard to sit still: 0 = Not at all Becoming easily annoyed or irritable: 1 = Several days Feeling afraid as if something awful might happen: 0 = Not at all Total ANJANA-7 score (0-4 normal; 5-9 mild; 10-14 moderate; 15-21 severe): 4 Source: Developed by Drs. Jeff Warner, Anjelica Encinas, Diomedes Kemp and colleagues, with an educational lauren from [employer]. ANJANA-7 Assessment Billing ANJAAN-7 Assessment Tool: ANJANA-7 Assessment 30910 Review of Systems Const Denies body aches, Denies fatigue, Denies headache(s) and Denies weakness Eyes Denies change in vision ENT Denies dizziness, Denies headache(s) and Denies nasal congestion Card Denies chest pain, Denies lightheadedness and Denies dyspnea Resp Denies chest congestion, Denies cough and Denies dyspnea GI Denies abdominal pain, Denies change in bowel habits and Denies heartburn Denies urinary frequency, Denies dysuria and Denies urinary urgency Musc Reports stiffness (Occasional) Skin/Breast Denies lesions and Denies rash Neuro Denies dizziness, Denies headache(s) and Denies weakness Psych Reports no additional complaints Endo Denies fatigue Mauricio/Lymph Reports no additional complaints Physical exam (Primary Care) Vital Signs: Last Vital Signs Pulse 64 01/07/23 10:04 BP 102/60 01/07/23 10:04 Pulse Ox 96 01/07/23 10:04 Oxygen Delivery Method Room Air 01/07/23 10:04 BMI result Body Mass Index 26.0 Tobacco/Smoking Status: Tobacco use Status Tobacco use date assessed 01/07/23 01/07/23 10:10 Patient Tobacco Use Status Never used Tobacco 01/07/23 10:10 e-Cigarette/Vaping Use Never Used 01/07/23 10:10 PHQ-9: PHQ-9 Score PHQ-9: Total score 0 01/07/23 10:33 Depression Screening Interpretation: Negative Thrive Assessment: Date of Thrive Assessment Date Thrive assessed 01/07/23 01/07/23 10:10 Const Other: Elderly lady looks younger than stated age, Alert oriented x3, no acute cardiorespiratory distress, ambulatory with normal gait HENMT Ears: external ears normal General nose exam: Normal external nose present Face and sinus: Yes face symmetric Mouth: tongue normal, oropharynx normal and moist mucous membranes Eyes General: appearance normal, both eyes and all related structures Pupils: Equal, round and reactive pupils present EOM: EOMs intact bilaterally Neck Neck: Yes full ROM, Yes no lymphadenopathy and Yes supple Thyroid: Thyroid normal (not palpable) Resp Effort & Inspection: normal respiratory effort, able to speak in complete sentences, no cough and no retractions Cardio Rate: regular rate Rhythm: regular rhythm Heart sounds: S1 normal heart sound present GI Palpation (GI): Soft to palpation, nontender, no guarding and no masses Auscultation: normal bowel sounds General: Yes no CVA tenderness Back/Spine/Pelvis Back: no CVA tenderness and No back tenderness Skin General skin exam: no rashes or lesions noted Neuro Cranial nerves: Yes Equal, round and reactive pupils present Cognition (Neuro): normal cognition Extrem General: Yes full ROM, Yes no joint enlargement and Yes no calf tenderness Psych Appearance: grossly normal and well kempt Mental Status: mental status grossly normal Speech and movement: Normal speech and movement present Affect: normal affect Attitude: cooperative Thought process: Normal thought process present Assessment and Plan Assessment & Plan (1) Dyslipidemia: Code(s): E78.5 - Hyperlipidemia, unspecified Plan: Currently atorvastatin 20 mg at night, reinforced adherence to low-cholesterol diet and get regular exercise, at least 30 minutes 3 to 4 times a week. Advised patient to make healthy food choices, eat more fruits, vegetables, whole grains, wild caught fish and low-fat dairy. Limit amount of meat and fried or fatty food products, as well as processed foods and fast foods. Repeat fasting lipid panel and liver enzyme ordered (2) Acquired hypothyroidism: Code(s): E03.9 - Hypothyroidism, unspecified Plan: Repeat TSH and free T4 ordered, continue with levothyroxine at the current dose (3) Hx of migraine headaches: Code(s): Z86.69 - Personal history of other diseases of the nervous system and sense organs Plan: Check CBC, basic metabolic panel Orders: Orders Basic Metabolic Panel Fasting 02/28/23 Z78.0 - Asymptomatic menopausal state, E78.5 - Hyperlipidemia, unspecified, E03.9 - Hypothyroidism, unspecified, Z86.69 - Personal history of other diseases of the nervous system and sense organs Thyroid Stimulating Hormone 02/28/23 Z78.0 - Asymptomatic menopausal state, E78.5 - Hyperlipidemia, unspecified, E03.9 - Hypothyroidism, unspecified, Z86.69 - Personal history of other diseases of the nervous system and sense organs Free T4 (Free Thyroxine) 02/28/23 E03.9 - Hypothyroidism, unspecified, Z78.0 - Asymptomatic menopausal state, E78.5 - Hyperlipidemia, unspecified, Z86.69 - Personal history of other diseases of the nervous system and sense organs Complete Blood Count Auto Diff 02/28/23 Z78.0 - Asymptomatic menopausal state, E78.5 - Hyperlipidemia, unspecified, E03.9 - Hypothyroidism, unspecified, Z86.69 - Personal history of other diseases of the nervous system and sense organs Aspartate Amino Transferase 02/28/23 Z78.0 - Asymptomatic menopausal state, E78.5 - Hyperlipidemia, unspecified, E03.9 - Hypothyroidism, unspecified, Z86.69 - Personal history of other diseases of the nervous system and sense organs Alanine Aminotransferase 02/28/23 Z78.0 - Asymptomatic menopausal state, E78.5 - Hyperlipidemia, unspecified, E03.9 - Hypothyroidism, unspecified, Z86.69 - Personal history of other diseases of the nervous system and sense organs Lipid Panel 02/28/23 Z78.0 - Asymptomatic menopausal state, E78.5 - Hyperlipidemia, unspecified, E03.9 - Hypothyroidism, unspecified, Z86.69 - Personal history of other diseases of the nervous system and sense organs Vitamin D 25-OH Total 02/28/23 Z78.0 - Asymptomatic menopausal state, E78.5 - Hyperlipidemia, unspecified, E03.9 - Hypothyroidism, unspecified, Z86.69 - Personal history of other diseases of the nervous system and sense organs Coding Level of Care Code Est Pt Level 4 (61155) Complex EM visit Add On G2211 Diagnoses Dyslipidemia E78.5 Acquired hypothyroidism E03.9 Hx of migraine headaches Z86.69 Additional Codes ANJANA-7 Assessment Billing - ANJANA-7 Assessment Tool: ANJANA-7 Assessment 42551 ([id number])
== END 2023-01-07 11:36 | disposition home or self-care (01) ==
LOC: HO.HMGC 09:18
PROVIDERS: PCP Internal Medicine; Visit Provider Internal Medicine
DX: E78.5 Hyperlipidemia, unspecified (principal); E03.9 Hypothyroidism, unspecified; Z86.69 Personal history of other diseases of the nervous system and sense organs
CPT/HCPCS: 99499

== ENCOUNTER 2023-03-08 07:07 | Outpatient (REF) | payer MEDICARE, MEDICAID, SELFPAY ==
[2023-03-08 07:17] LABS: MANUAL DIFF FLAG NO
[2023-03-08 07:36] LABS: Basophils Percent Auto 0.7 % (0-2); Eosinophils Absolute Auto 0.1 X10*3/uL (0.0-0.4); Eosinophils Percent Auto 2.1 % (0-4); Hematocrit 40.6 % (37.0-47.0); Hemoglobin 13.2 g/dl (12.0-16.0); Imm Gran Abs Auto 0.01 X10*3/uL (0.00-0.03); Imm Gran Pct Auto 0.2 % (0.0-0.4); Lymphocytes Absolute Auto 1.1 X10*3/uL (1.2-4.9); Lymphocytes Percent Auto 25.8 % (20-40); Mean Corpuscular HGB Conc 32.5 g/dl (31.0-35.0); Mean Corpuscular Hemoglobin 30.4 pg (27.0-33.0); Mean Corpuscular Volume 93.5 fL (80.0-98.0); Mean Platelet Volume 10.3 fL (9.4-12.3); Monocytes Absolute Auto 0.4 X10*3/uL (0.1-1.2); Monocytes Percent Auto 8.4 % (2-11); Neutrophils Absolute Auto 2.7 x10*3/uL (2.0-8.3); Neutrophils Percent Auto 62.8 % (45-73); Platelet Count 203 X10*3/uL (160-400); Red Blood Count 4.34 X10*6/uL (4.20-5.50); Red Cell Distribution Width 12.4 % (11.0-16.0); White Blood Count 4.3 X10*3/uL (4.8-10.8)
[2023-03-08 08:18] LABS: Alanine Aminotransferase 17 U/L (0-31); Anion Gap 10 (12-20); Aspartate Amino Transferase 21 U/L (5-31); Blood Urea Nitrogen 10 mg/dL (9-16); Calcium 9.2 mg/dL (8.4-10.2); Carbon Dioxide 29 mmol/L (22-29); Chloride 107 mmol/L (96-108); Cholesterol 171 mg/dL; Estimated Glomerular Filt Rate > 60; Glucose Fasting 108 mg/dL (60-99); HDL Cholesterol 54 mg/dL; LDL Cholesterol Calculated 81 mg/dl; Potassium 4.1 mmol/L (3.3-5.1); Sodium 142 mmol/L (135-145); Triglycerides 181 mg/dL
[2023-03-08 08:25] LABS: Thyroid Stimulating Hormone 0.31 uIU/mL (0.32-4.0); Vitamin D 25-OH Total 36.3 ng/mL (>30)
== END 2023-03-08 07:08 | disposition home or self-care (01) ==
LOC: HO.LAB 07:07
PROVIDERS: PCP Internal Medicine; Visit Provider Internal Medicine
DX: E03.9 Hypothyroidism, unspecified (principal); E78.5 Hyperlipidemia, unspecified; Z78.0 Asymptomatic menopausal state; Z86.69 Personal history of other diseases of the nervous system and sense organs
CPT/HCPCS: 36415; 80048; 80061; 82306; 84439; 84443; 84450; 84460; 85025

== ENCOUNTER 2023-05-24 13:18 | Outpatient (AMB) | payer MEDICARE, MEDICAID, SELFPAY ==
--- NOTE | 2023-05-24 13:23 | A.OFFPC_ITS ---
Vital Signs 05/24/23 13:24 Height 5 ft 3 in Weight 146 lb BMI 25.9 BP 110/62 Blood Pressure Location Rt brachial Position Sitting Pulse 65 Pulse Source Pulse Oximeter Pulse Oximetry (%) 98 Oxygen Delivery Method Room Air Intake Visit Reasons: f/u depression & anxiety Intake Note: Pt is here today to f/u depression and anxiety Allergies No Known Allergies Allergy (Verified 04/26/24 15:12) Medication List - Last Reconciled 05/24/23 by Ivy Lee MD acetaminophen (Tylenol Extra Strength) 500 mg PO Q6H PRN atorvastatin 20 mg PO BEDTIME cholecalciferol (vitamin D3) (Vitamin D3) 25 mcg PO DAILY doxycycline hyclate 100 mg PO BID 7 days fluoxetine 20 mg PO DAILY levothyroxine 88 mcg PO DAILY@629 timolol maleate 0.5% 1 drp ophthalmic (eye) DAILY Tobacco use date assessed: 05/24/23 Fall risk assessment: No Falls in past year Last assessed Fall Risk: 05/24/23 Dental Screening Did you have a dental visit in the last 12 months?: No Was dental information given to patient?: Patient declined HPI f/u depression & anxiety HPI Details 84-year-old lady here today for follow-u p on her anxiety disorder, she initially has been on high-dose fluoxetine 80 mg daily and has tried cutting back down to 20 mg daily which has been working for several months. Patient however is back here today complaining of having frequent anxiety attacks on the lower dose of fluoxetine, would like to go higher on her dose to see if this will help control her anxiety symptoms. Does not want referral for therapy however [facility] Medical History (Updated 07/31/24 @ 03:41 by Ivy Lee MD) Generalized anxiety disorder Left knee pain Hip pain, left Frequent falls Anxiety and depression Glaucoma Impaired fasting glucose Hx of migraine headaches Pain of left calf Ocular migraine Hearing loss Mammogram declined Colonoscopy refused Obsessive-compulsive disorder Menopause Dyslipidemia Acquired hypothyroidism Surgical History No pertinent past surgical history Family History Father Substance use disorder Brother Substance use disorder Brother Substance use disorder Social History Household Members: None Housing: Other Housing Other:: independent living (in own apartment) Do you presently have visiting nurse or other home services: No Alcohol intake: never Patient Tobacco Use Status: Never used Tobacco e-Cigarette/Vaping Use: Never Used Advance Directives Date on File: 06/17/22 service: No Current occupational status: retired Cognitive needs: No Hearing needs: Yes Vision needs: Yes Questionnaire PHQ-9 Over the last 2 weeks, how often have you been bothered by any of the following problems? 1. Little interest or pleasure in doing things: not at all 2. Feeling down, depressed, or hopeless: not at all 3. Trouble falling or staying asleep, or sleeping too much: nearly every day 4. Feeling tired or having little energy: nearly every day 5. Poor appetite or overeating: not at all 6. Feeling bad about yourself - or that you are a failure or have let yourself or your family down: not at all 7. Trouble concentrating on things, such as reading the newspaper or watching television: not at all 8. Moving or speaking so slowly that other people could have noticed. Or the opposite - being so fidgety or restless that you have been moving around a lot more than usual: not at all 9. Thoughts that you would be better off or of hurting yourself in some way: not at all Total score: 6 Depression Screening Interpretation: Negative 31941 - PHQ-9 Billing: Yes Source: Developed by Drs. Jeff Warner, Anjelica Encinas, Diomedes Kemp and colleagues, with an educational lauren from [employer]. Thrive Questionnaire Date Thrive assessed: 01/07/23 ANJANA-7 AMB Questionnaire ANJANA-7 Date ANJANA - 7 assessed: 05/24/23 Feeling nervous, anxious, or on edge: 3 = Nearly every day Not being able to stop or control worryin = Nearly every day Worrying too much about different things: 3 = Nearly every day Trouble relaxin = Nearly every day Being so restless that it is hard to sit still: 1 = Several days Becoming easily annoyed or irritable: 1 = Several days Feeling afraid as if something awful might happen: 1 = Several days Total ANJANA-7 score (0-4 normal; 5-9 mild; 10-14 moderate; 15-21 severe): 15 Source: Developed by Drs. Jeff Warner, Anjelica Encinas, Diomedes Kemp and colleagues, with an educational lauren from [employer]. ANJANA-7 Assessment Billing ANJANA-7 Assessment Tool: ANJANA-7 Assessment 18897 Review of Systems Const Denies body aches, Denies headache(s) and Denies weakness ENT Denies dizziness, Denies headache(s) and Denies nasal congestion Card Denies chest pain, Denies lightheadedness and Denies dyspnea Resp Denies chest congestion, Denies cough and Denies dyspnea GI Denies abdominal pain, Denies change in bowel habits and Denies heartburn Denies urinary frequency, Denies dysuria and Denies urinary urgency Musc Reports stiffness (Occasional) Skin/Breast Denies lesions and Denies rash Neuro Denies dizziness, Denies headache(s) and Denies weakness Psych Reports as per HPI Endo Reports no additional complaints Mauricio/Lymph Reports no additional complaints Aller/Immun Reports no additional complaints Physical exam (Primary Care) Vital Signs: Last Vital Signs Pulse 65 05/24/23 13:24 BP 110/62 05/24/23 13:24 Pulse Ox 98 05/24/23 13:24 Oxygen Delivery Method Room Air 05/24/23 13:24 BMI result Body Mass Index 25.9 Tobacco/Smoking Status: Tobacco use Status Tobacco use date assessed 05/24/23 05/24/23 14:02 Patient Tobacco Use Status Never used Tobacco 05/24/23 13:25 e-Cigarette/Vaping Use Never Used 05/24/23 13:25 PHQ-9: PHQ-9 Score PHQ-9: Total score 6 05/24/23 14:20 Depression Screening Interpretation: Negative Thrive Assessment: Date of Thrive Assessment Date Thrive assessed 01/07/23 05/24/23 13:25 Const Other: Elderly lady looks younger than stated age, Alert oriented x3, no acute cardiorespiratory distress, ambulatory with normal gait HENMT Ears: external ears normal General nose exam: Normal external nose present Face and sinus: Yes face symmetric Mouth: oropharynx normal and moist mucous membranes Eyes General: appearance normal, both eyes and all related structures Pupils: Equal, round and reactive pupils present EOM: EOMs intact bilaterally Neck Neck: Yes full ROM, Yes no lymphadenopathy and Yes supple Thyroid: Thyroid normal Resp Effort & Inspection: normal respiratory effort, able to speak in complete sentences, no cough and no retractions Cardio Rate: regular rate Rhythm: regular rhythm Heart sounds: S1 normal heart sound present GI Palpation (GI): Soft to palpation, nontender, no guarding and no masses Auscultation: normal bowel sounds General: Yes no CVA tenderness Back/Spine/Pelvis Back: no CVA tenderness and No back tenderness Skin General skin exam: no rashes or lesions noted Neuro Cranial nerves: Yes Equal, round and reactive pupils present Cognition (Neuro): normal cognition Extrem General: Yes full ROM, Yes no joint enlargement and Yes no calf tenderness Psych Appearance: grossly normal and well kempt Mental Status: mental status grossly normal Speech and movement: Normal speech and movement present Affect: normal affect Attitude: cooperative Thought process: Normal thought process present Assessment and Plan Assessment & Plan (1) Generalized anxiety disorder: Code(s): F41.1 - Generalized anxiety disorder Plan: Will increase fluoxetine dose to 40 mg daily, declines referral for counseling, schedule follow-up visit in 07/2023 Medications: Changed From fluoxetine 20 mg PO DAILY 30 tabs 0RF F41.9 - Anxiety disorder, unspecified, F32.A - Depression, unspecified, F42.9 - Obsessive-compulsive di sorder, unspecified To fluoxetine 40 mg (2 x 20 mg) PO DAILY 60 tabs 5RF F41.9 - Anxiety disorder, unspecified, F32.A - Depression, unspecified, F42.9 - Obsessive-compulsive disorder, unspecified Coding Level of Care Code Est Pt Level 3 (29443) Diagnoses Generalized anxiety disorder F41.1 Additional Codes ANJANA-7 Assessment Billing - ANJANA-7 Assessment Tool: ANJANA-7 Assessment 05769 ([id number])
[2023-05-24 13:24] VITALS: BP 110/62; PULSE 65; O2SAT 98; BMI 25.9
== END 2023-05-24 14:22 | disposition home or self-care (01) ==
PROVIDERS: PCP Internal Medicine; Visit Provider Internal Medicine
DX: F41.1 Generalized anxiety disorder (principal)
CPT/HCPCS: 99499

== ENCOUNTER 2023-06-21 11:49 | Outpatient (AMB) | payer MEDICARE, MEDICAID, SELFPAY ==
--- NOTE | 2023-06-21 13:22 | MHC.PC.OV ---
Vital Signs 06/21/23 13:25 Height 5 ft 3 in Weight 146 lb BMI 25.9 BP 110/62 Blood Pressure Location Lt brachial Position Sitting Pulse 81 Pulse Source Pulse Oximeter Pulse Oximetry (%) 97 Oxygen Delivery Method Room Air Intake Visit Reasons: request increase of fluoxetine Intake Note: Pt is here today wants to discuss increase of the fluoxetine Allergies No Known Allergies Allergy (Verified 06/21/23 13:30) Medication List - Last Reconciled 06/21/23 by Ivy Lee MD acetaminophen (Tylenol Extra Strength) 500 mg PO Q6H PRN atorvastatin 20 mg PO BEDTIME cholecalciferol (vitamin D3) (Vitamin D3) 25 mcg PO DAILY fluoxetine 40 mg (2 x 20 mg) PO DAILY levothyroxine 88 mcg PO DAILY@0630 timolol maleate 0.5% 1 drp ophthalmic (eye) DAILY Tobacco use date assessed: 06/21/23 Fall risk assessment: No Falls in past year Last assessed Fall Risk: 06/21/23 Dental Screening Dental Screen Date: 06/21/23 Did you have a dental visit in the last 12 months?: No Was dental information given to patient?: Patient declined HPI request increase of fluoxetine HPI Details 82-year-old lady with obsessive-compulsive disorder, currently restarted back on Prozac, increased approximately 2 weeks ago to 40 mg daily, which was her previous dose. Patient states that she still has been having anxiety attacks, but has not been as intense as she had when she started weaning herself off her Prozac. Initially wanted to come in to discuss further increasing the dose, but she has decided that she wants to try to take the 40 mg dose for another 2 weeks , to get full effect of the medication before adjusting dosage. She has been trying to keep her anxiety at bay by staying busy, which has been helping [facility] Medical History Acquired hypothyroidism Anxiety and depression Colonoscopy refused Dyslipidemia Glaucoma Hearing loss Hx of migraine headaches Impaired fasting glucose Mammogram declined Menopause Obsessive-compulsive disorder Ocular migraine Pain of left calf Surgical History No pertinent past surgical history Family History Father Substance use disorder Brother Substance use disorder Brother Substance use disorder Social History Household Members: None Housing: Other Housing Other:: independent living (in own apartment) Do you presently have visiting nurse or other home services: No Alcohol intake: never Patient Tobacco Use Status: Never used Tobacco e-Cigarette/Vaping Use: Never Used Advance Directives Date on File: 06/17/22 service: No Current occupational status: retired Cognitive needs: No Hearing needs: Yes Vision needs: Yes Questionnaire PHQ-9 Over the last 2 weeks, how often have you been bothered by any of the following problems? 1. Little interest or pleasure in doing things: not at all 2. Feeling down, depressed, or hopeless: not at all 3. Trouble falling or staying asleep, or sleeping too much: several days 4. Feeling tired or having little energy: several days 5. Poor appetite or overeating: not at all 6. Feeling bad about yourself - or that you are a failure or have let yourself or your family down: not at all 7. Trouble concentrating on things, such as reading the newspaper or watching television: not at all 8. Moving or speaking so slowly that other people could have noticed. Or the opposite - being so fidgety or restless that you have been moving around a lot more than usual: not at all 9. Thoughts that you would be better off or of hurting yourself in some way: not at all Total score: 2 Depression Screening Interpretation: Negative 79825 - PHQ-9 Billing: Yes Source: Developed by Drs. Jeff Warner, Anjelica Encinas, Diomedes Kemp and colleagues, with an educational lauren from [employer]. Thrive Questionnaire Date Thrive assessed: 01/07/23 AUDIT C Alcohol Use Questionnaire (AUDIT-C) 1. How often do you have a drink containing alcohol?: Never Total Score: 0 ANJANA-7 AMB Questionnaire ANJANA-7 Date ANJANA - 7 assessed: 05/24/23 Feeling nervous, anxious, or on edge: 1 = Several days Not being able to stop or control worryin = Several days Worrying too much about different things: 1 = Several days Trouble relaxin = Several days Being so restless that it is hard to sit still: 0 = Not at all Becoming easily annoyed or irritable: 1 = Several days Feeling afraid as if something awful might happen: 0 = Not at all Total ANJANA-7 score (0-4 normal; 5-9 mild; 10-14 moderate; 15-21 severe): 5 Source: Developed by Drs. Jeff Warner, Anjelica Encinas, Diomedes Kmep and colleagues, with an educational lauren from [employer]. ANJANA-7 Assessment Billing ANJANA-7 Assessment Tool: ANJANA-7 Assessment 85705 Review of Systems Const Denies body aches, Denies excessive sweating, Denies headache(s) and Denies weakness ENT Denies dizziness, Denies headache(s) and Denies nasal congestion Card Denies chest pain, Denies lightheadedness and Denies dyspnea Resp Denies chest congestion, Denies cough and Denies dyspnea GI Denies abdominal pain, Denies change in bowel habits and Denies heartburn Denies urinary frequency, Denies dysuria and Denies urinary urgency Musc Reports stiffness (Occasional) Skin/Breast Denies lesions and Denies rash Neuro Denies dizziness, Denies headache(s) and Denies weakness Psych Reports as per HPI Endo Denies cold intolerance, Denies excessive sweating, Denies heat intolerance, Denies polyphagia and Denies polydipsia Physical exam (Primary Care) Vital Signs: Last Vital Signs Pulse 81 06/21/23 13:25 BP 110/62 06/21/23 13:25 Pulse Ox 97 06/21/23 13:25 Oxygen Delivery Method Room Air 06/21/23 13:25 BMI result Body Mass Index 25.9 Tobacco/Smoking Status: Tobacco use Status Tobacco use date assessed 06/21/23 06/21/23 13:29 Patient Tobacco Use Status Never used Tobacco 06/21/23 13:25 e-Cigarette/Vaping Use Never Used 06/21/23 13:25 PHQ-9: PHQ-9 Score PHQ-9: Total score 2 06/21/23 13:45 Depression Screening Interpretation: Negative Thrive Assessment: Date of Thrive Assessment Date Thrive assessed 01/07/23 06/21/23 13:25 Const Other: Elderly lady looks younger than stated age, Alert oriented x3, no acute cardiorespiratory distress, ambulatory with normal gait HENMT Ears: external ears normal General nose exam: Normal external nose present, Normal nasal mucous membranes and turbinates present and no nasal discharge noted Face and sinus: Yes face symmetric Mouth: Normal oral and palatal mucosa present, tongue normal, oropharynx normal and moist mucous membranes Eyes General: appearance normal, both eyes and all related structures Pupils: Equal, round and reactive pupils present EOM: EOMs intact bilaterally Neck Neck: Yes full ROM, Yes no lymphadenopathy and Yes supple Thyroid: Thyroid normal Resp Effort & Inspection: normal respiratory effort, able to speak in complete sentences, no cough and no retractions Cardio Rate: regular rate Rhythm: regular rhythm Heart sounds: S1 normal heart sound present GI Palpation (GI): Soft to palpation, nontender, no guarding and no masses Auscultation: normal bowel sounds Skin General skin exam: no rashes or lesions noted Neuro Cranial nerves: Yes Equal, round and reactive pupils present Cognition (Neuro): normal cognition Extrem General: Yes full ROM, Yes no joint enlargement and Yes no calf tenderness Psych Appearance: grossly normal and well kempt Mental Status: mental status grossly normal Speech and movement: Normal speech and movement present Affect: normal affect Attitude: cooperative Thought process: Normal thought process present Assessment and Plan Assessment & Plan (1) Anxiety and depression: Code(s): F41.9 - Anxiety disorder, unspecified; F32.A - Depression, unspecified Plan: She has only been on the 40 mg of fluoxetine for at least 2 weeks, would like to stay on this dose for another 1 and half weeks to see if anxiety attacks resolves. Advised to call to let me know how she is doing on current dose. Discussed other treatment options for relieving anxiety which includes breathing exercise, staying busy, avoiding any alcoholic or caffeinated drinks. Coding Level of Care Code Est Pt Level 3 (05287) Diagnoses Anxiety and depression F41.9; F32.A Additional Codes ANJANA-7 Assessment Billing - ANJANA-7 Assessment Tool: ANJANA-7 Assessment 71131 ([id number])
[2023-06-21 13:25] VITALS: BP 110/62; PULSE 81; O2SAT 97; BMI 25.9
== END 2023-06-21 14:49 | disposition home or self-care (01) ==
PROVIDERS: PCP Internal Medicine; Visit Provider Internal Medicine
DX: F41.9 Anxiety disorder, unspecified (principal); F32.A Depression, unspecified
CPT/HCPCS: 99213

== ENCOUNTER 2023-07-26 14:42 | Outpatient (AMB) | payer MEDICARE, MEDICAID, SELFPAY ==
--- NOTE | 2023-07-26 14:42 | A.OFFPC_ITS ---
Intake Visit Reasons: Med review-Android [phone] Intake Note: Pt is having a teleheatl visit for her med review Allergies No Known Allergies Allergy (Verified 07/26/23 15:21) Medication List - Last Reconciled 07/26/23 by Ivy Lee MD acetaminophen (Tylenol Extra Strength) 500 mg PO Q6H PRN atorvastatin 20 mg PO BEDTIME cholecalciferol (vitamin D3) (Vitamin D3) 25 mcg PO DAILY diphenhydramine HCl (Benadryl) 25 mg PO BEDTIME PRN fluoxetine 60 mg PO DAILY levothyroxine 88 mcg PO DAILY@0630 timolol maleate 0.5% 1 drp ophthalmic (eye) DAILY Tobacco use date assessed: 07/26/23 Fall risk assessment: 1 Fall in past year Last assessed Fall Risk: 07/26/23 Dental Screening Dental Screen Date: 07/26/23 Did you have a dental visit in the last 12 months?: No Was dental information given to patient?: Patient declined HPI Med review-Android [phone] HPI Details Tele health visit made with 83-year-old lady with long-term history of anxiety depression here today for follow-up. She previously has been on 80 mg 1 dose of fluoxetine in the past, has tried weaning herself off and now is currently on 60 mg of fluoxetine once a day. Patient however has been complaining of frequent episodes of anxiety and mood swings on this dose, would like to be put back up again to 80 mg dose once a day , which has been helping in the past. Denies any adverse reactions on high-dose fluoxetine. Who declines going for therapy, has tried that in the past which she states has not really been very helpful. [facility] Medical History Acquired hypothyroidism Anxiety and depression Colonoscopy refused Dyslipidemia Glaucoma Hearing loss Hx of migraine headaches Impaired fasting glucose Mammogram declined Menopause Obsessive-compulsive disorder Ocular migraine Pain of left calf Surgical History No pertinent past surgical history Family History Father Substance use disorder Brother Substance use disorder Brother Substance use disorder Social History Household Members: None Housing: Other Housing Other:: independent living (in own apartment) Do you presently have visiting nurse or other home services: No Alcohol intake: never Patient Tobacco Use Status: Never used Tobacco e-Cigarette/Vaping Use: Never Used Advance Directives Date on File: 06/17/22 service: No Current occupational status: retired Cognitive needs: No Hearing needs: Yes Vision needs: Yes Questionnaire PHQ-9 Over the last 2 weeks, how often have you been bothered by any of the following problems? 1. Little interest or pleasure in doing things: several days 2. Feeling down, depressed, or hopeless: several days 3. Trouble falling or staying asleep, or sleeping too much: more than half the days 4. Feeling tired or having little energy: several days 5. Poor appetite or overeating: not at all 6. Feeling bad about yourself - or that you are a failure or have let yourself or your family down: not at all 7. Trouble concentrating on things, such as reading the newspaper or watching television: not at all 8. Moving or speaking so slowly that other people could have noticed. Or the opposite - being so fidgety or restless that you have been moving around a lot m ore than usual: not at all 9. Thoughts that you would be better off or of hurting yourself in some way: not at all Total score: 5 Depression Screening Interpretation: Positive Depression Screening Follow-up: Existing condition and In treatment 61858 - PHQ-9 Billing: Yes Source: Developed by Drs. Jeff Warner, Anjelica Encinas, Diomedes Kemp and colleagues, with an educational lauren from [employer]. Thrive Questionnaire Date Thrive assessed: 01/07/23 ANJANA-7 AMB Questionnaire ANJANA-7 Date ANJANA - 7 assessed: 07/26/23 Feeling nervous, anxious, or on edge: 1 = Several days Not being able to stop or control worryin = Several days Worrying too much about different things: 1 = Several days Trouble relaxin = Several days Being so restless that it is hard to sit still: 0 = Not at all Becoming easily annoyed or irritable: 1 = Several days Feeling afraid as if something awful might happen: 0 = Not at all Total ANJANA-7 score (0-4 normal; 5-9 mild; 10-14 moderate; 15-21 severe): 5 Source: Developed by Drs. Jeff Warner, Anjelica Encinas, Diomedes Kemp and colleagues, with an educational lauren from [employer]. ANJANA-7 Assessment Billing ANJANA-7 Assessment Tool: ANJANA-7 Assessment 99605 Review of Systems Const Reports as per HPI ENT Reports no additional complaints Card Denies chest pain, Denies rapid heart rate, Denies irregular heart rhythm, Denies lightheadedness, Denies dyspnea and Denies dyspnea on exertion Resp Denies dyspnea and Denies dyspnea on exertion GI Reports no additional complaints Musc Reports no additional complaints Neuro Reports no additional complaints Psych Reports as per HPI Physical exam (Primary Care) Tobacco/Smoking Status: Tobacco use Status Tobacco use date assessed 07/26/23 07/26/23 14:46 Patient Tobacco Use Status Never used Tobacco 07/26/23 14:46 e-Cigarette/Vaping Use Never Used 07/26/23 14:46 Depression Screening Interpretation: Positive Depression Screening Follow-up: Existing condition and In treatment Thrive Assessment: Date of Thrive Assessment Date Thrive assessed 01/07/23 07/26/23 14:46 Telehealth Telehealth Location of provider rendering services: practice address Location of patient: address on file Patient Identification confirmed using: Name, : Yes Telehealth method: video Patient verbally consented to treatment: Yes Patient verbally consented to billing insurance company: Yes Patient informed of any privacy concerns related to visit: Yes Minutes spent on Phone/Video with Pt.: 15 Assessment and Plan Assessment & Plan (1) Anxiety and depression: Code(s): F41.9 - Anxiety disorder, unspecified; F32.A - Depression, unspecified Plan: Increase fluoxetine dose to 80 mg daily, prescription sent for 40 mg per capsule to take 2 capsules daily. Declines refer for counseling. Will see her back for follow-up in 6 weeks Medications: New fluoxetine 80 mg (2 x 40 mg) PO DAILY 30 days 60 caps 2RF F32.A - Depression, unspecified, F41.9 - Anxiety disorder, unspecified Coding Level of Care Code Tele Est Pt Level 3 (05048) Diagnoses Anxiety and depression F41.9; F32.A Additional Codes ANJANA-7 Assessment Billing - ANJANA-7 Assessment Tool: ANJANA-7 Assessment 87135 ([id number])
== END 2023-07-26 15:39 | disposition home or self-care (01) ==
LOC: HO.HMGC 14:42
PROVIDERS: PCP Internal Medicine; Visit Provider Internal Medicine
DX: F41.9 Anxiety disorder, unspecified (principal); F32.A Depression, unspecified
CPT/HCPCS: 96127; 99213

== ENCOUNTER 2023-08-31 06:48 | Outpatient (REF) | payer MEDICARE, MEDICAID, SELFPAY ==
[2023-08-31 08:13] LABS: Alanine Aminotransferase 27 U/L (0-31); Anion Gap 12 (12-20); Aspartate Amino Transferase 30 U/L (5-31); Blood Urea Nitrogen 14 mg/dL (9-16); Calcium 9.6 mg/dL (8.4-10.2); Carbon Dioxide 28 mmol/L (22-29); Chloride 100 mmol/L (96-108); Cholesterol 174 mg/dL (<200); Estimated Glomerular Filt Rate > 60; Glucose Fasting 90 mg/dL (60-99); HDL Cholesterol 66 mg/dL (>40); LDL Cholesterol Calculated 86 mg/dL (<100); Potassium 4.5 mmol/L (3.3-5.1); Sodium 135 mmol/L (135-145); Triglycerides 114 mg/dL (<150)
[2023-08-31 08:33] LABS: Free T4 (Free Thyroxine) 1.14 ng/dL (0.71-1.85); Thyroid Stimulating Hormone 2.62 uIU/mL (0.32-4.0); Vitamin D 25-OH Total 34.8 ng/mL (>30)
== END 2023-08-31 06:49 | disposition home or self-care (01) ==
LOC: HO.LAB 06:48
PROVIDERS: PCP Internal Medicine; Visit Provider Internal Medicine
DX: E78.5 Hyperlipidemia, unspecified (principal); E03.9 Hypothyroidism, unspecified; R73.01 Impaired fasting glucose; Z78.0 Asymptomatic menopausal state
CPT/HCPCS: 36415; 80048; 80061; 82306; 84439; 84443; 84450; 84460

== ENCOUNTER 2023-09-05 12:48 | Outpatient (AMB) | payer MEDICARE, MEDICAID, SELFPAY ==
--- NOTE | 2023-09-05 12:59 | MHC.PC.OV ---
Vital Signs 09/05/23 13:02 Height 5 ft 3 in Weight 144 lb BMI 25.5 BP 122/70 Blood Pressure Location Rt brachial Position Sitting Pulse 63 Pulse Source Pulse Oximeter Pulse Oximetry (%) 96 Oxygen Delivery Method Room Air Intake Visit Reasons: 6 month Follow Up Intake Note: Pt is here today for her 6 mo. f/u Allergies No Known Allergies Allergy (Verified 09/05/23 13:19) Medication List - Last Reconciled 09/05/23 by Ivy Lee MD acetaminophen (Tylenol Extra Strength) 500 mg PO Q6H PRN atorvastatin 20 mg PO BEDTIME cholecalciferol (vitamin D3) (Vitamin D3) 25 mcg PO DAILY diphenhydramine HCl (Benadryl) 25 mg PO BEDTIME PRN fluoxetine 80 mg (2 x 40 mg) PO DAILY 30 days levothyroxine 88 mcg PO DAILY@0630 timolol maleate 0.5% 1 drp ophthalmic (eye) DAILY Tobacco use date assessed: 09/05/23 Fall risk assessment: 1 Fall in past year Last assessed Fall Risk: 09/05/23 Dental Screening Dental Screen Date: 09/05/23 Did you have a dental visit in the last 12 months?: No Was dental information given to patient?: Patient declined HPI 6 month Follow Up HPI Details 83-year-old lady with anxiety depression, currently stable controlled on fluoxetine 80 mg daily, here today for follow-up on her lipids and acquired hypothyroidism. She has been feeling well, with no complaints time. Recent fasting labs done showed normal fasting glucose, cholesterol levels, vitamin-D, and thyroid levels. [facility] Medical History Anxiety and depression Glaucoma Impaired fasting glucose Hx of migraine headaches Pain of left calf Ocular migraine Hearing loss Mammogram declined Colonoscopy refused Obsessive-compulsive disorder Menopause Dyslipidemia Acquired hypothyroidism Surgical History No pertinent past surgical history Family History Father Substance use disorder Brother Substance use disorder Brother Substance use disorder Social History Household Members: None Housing: Other Housing Other:: independent living (in own apartment) Do you presently have visiting nurse or other home services: No Alcohol intake: never Patient Tobacco Use Status: Never used Tobacco e-Cigarette/Vaping Use: Never Used Advance Directives Date on File: 06/17/22 service: No Current occupational status: retired Cognitive needs: No Hearing needs: Yes Vision needs: Yes Questionnaire PHQ-9 Over the last 2 weeks, how often have you been bothered by any of the following problems? 1. Little interest or pleasure in doing things: not at all 2. Feeling down, depressed, or hopeless: not at all 3. Trouble falling or staying asleep, or sleeping too much: not at all 4. Feeling tired or having little energy: not at all 5. Poor appetite or overeating: not at all 6. Feeling bad about yourself - or that you are a failure or have let yourself or your family down: not at all 7. Trouble concentrating on things, such as reading the newspaper or watching television: not at all 8. Moving or speaking so slowly that other people could have noticed. Or the opposite - being so fidgety or restless that you have been moving around a lot more than usual: not at all 9. Thoughts that you would be better off or of hurting yourself in some way: not at all Total score: 0 Depression Screening Interpretation: Negative (Better controlled on fluoxetine 80 mg daily) Depression Screening Done: Yes 75609 - PHQ-9 Billing: Yes Source: Developed by Drs. Jeff Warner, Anjelica Encinas, Diomedes Kemp and colleagues, with an educational lauren from [employer]. Thrive Questionnaire Date Thrive assessed: 01/07/23 ANJANA-7 AMB Questionnaire ANJANA-7 Date ANJANA - 7 assessed: 07/26/23 Source: Developed by Drs. Jeff Warner, Anjelica Encinas, Diomedes Kemp and colleagues, with an educational lauren from [employer]. Review of Systems Const Reports as per HPI ENT Reports no additional complaints Card Denies chest pain, Denies rapid heart rate, Denies irregular heart rhythm, Denies lightheadedness, Denies dyspnea and Denies dyspnea on exertion Resp Denies dyspnea and Denies dyspnea on exertion GI Reports no additional complaints Musc Reports no additional complaints Neuro Reports no additional complaints Psych Reports as per HPI Physical exam (Primary Care) Vital Signs: Last Vital Signs Pulse 63 09/05/23 13:02 BP 122/70 09/05/23 13:02 Pulse Ox 96 09/05/23 13:02 Oxygen Delivery Method Room Air 09/05/23 13:02 BMI result Body Mass Index 25.5 Tobacco/Smoking Status: Tobacco use Status Tobacco use date assessed 09/05/23 09/05/23 13:01 Patient Tobacco Use Status Never used Tobacco 09/05/23 13:01 e-Cigarette/Vaping Use Never Used 09/05/23 13:01 Depression Screening Interpretation: Negative (Better controlled on fluoxetine 80 mg daily) Thrive Assessment: Date of Thrive Assessment Date Thrive assessed 01/07/23 09/05/23 13:01 Const Other: Elderly lady looks younger than stated age, Alert oriented x3, no acute cardiorespiratory distress, ambulatory with normal gait HENMT Ears: external ears normal General nose exam: Normal external nose present Face and sinus: Yes face symmetric Mouth: tongue normal, oropharynx normal and moist mucous membranes Eyes General: appearance normal, both eyes and all related structures Pupils: Equal, round and reactive pupils present EOM: EOMs intact bilaterally Neck Neck: Yes full ROM, Yes no lymphadenopathy and Yes supple Thyroid: Thyroid normal Resp Effort & Inspection: normal respiratory effort, able to speak in complete sentences, no cough and no retractions Cardio Rate: regular rate Rhythm: regular rhythm Heart sounds: S1 normal heart sound present GI Palpation (GI): Soft to palpation, nontender, no guarding and no masses Auscultation: normal bowel sounds Skin General skin exam: no rashes or lesions noted Neuro Cranial nerves: Yes Equal, round and reactive pupils present Cognition (Neuro): normal cognition Extrem General: Yes full ROM, Yes no joint enlargement and Yes no calf tenderness Psych Appearance: grossly normal and well kempt Mental Status: mental status grossly normal Speech and movement: Normal speech and movement present Affect: normal affect Attitude: cooperative Thought process: Normal thought process present Results Reviewed Results Reviewed: SPEC : [id number] NANO: 08/31/23 STATUS: COMP REQ : [id number] RECD: 08/31/[address]: Ivy Lee MD COMP: 08/31/23 ENTERED: 08/31/[address]: ORDERED: Met Prof Fast, AST, ALT, Lipid Panel, Vitamin D 25-OH, Free T4, TSH Test Result Flag Reference Site Sodium 135 135-145 mmol/L Potassium 4.5 3.3-5.1 mmol/L CL 100 96-108 mmol/L CO2 28 22-29 mmol/L Gap 12 12-20 BUN 14 9-16 mg/dL Creat 0.74 0.5-1.4 mg/dL EGFR > 60 NOTE: For -[place]aced[place] individuals, multiply the result by 1.210. Chronic Kidney Disease: Estimated GFR < 60 mL/min/1.73m2 Severe Kidney Disease: Estimated GFR < 15 mL/min/1.73m2 FBS 90 60-99 mg/dL CA 9.6 8.4-10.2 mg/dL AST (GOT) 30 5-31 U/L ALT (GPT) 27 0-31 U/L Triglyceride 114 <150 mg/dL Desirable Triglyceride: less than 150 mg/dL Borderline High Triglyceride 150-199 mg/dL High Triglyceride: 200-499 mg/dL Very High Triglyceride: greater than or equal to 5OO mg/dL Cholesterol 174 <200 mg/dL Desirable Cholesterol: less than 200 mg/dL Borderline High Cholesterol: 200-239 mg/dL High Cholesterol: greater than 239 mg/dL LDL Calculated 86 <100 mg/dL Desirable LDL: less than 100 mg/dL Near Optimal/Above Optimal LDL: 110-129 mg/dL Borderline High LDL: 130-159 mg/dL High LDL: 160-189 mg/dL Very High LDL: greater than or equal to 190 mg/dL HDL 66 >40 mg/dL Desirable HDL: greater than 40 mg/dL Note: This HDL assay may give artificially low results in patients with liver disease. Vit D 25-OH Tot 34.8 >30 ng/mL Health Based Reference Values* < 20 ng/mL Deficient 20-30 ng/mL Insufficient > 30 ng/mL Sufficient *Edgardo RIZZO. N Engl J Med. 2007;357:266-280 Care must be taken in interpreting Vitamin D results from different laboratories and methodologies. Published data demonstrated that results from patients undergoing hemodialysis may show a negative bias when tested with various automated 25-OH vitamin D assays when compared to LC-MS/MS. When testing samples from patients whose predominant form of Vitamin D is Vitamin D2, such as patients receiving Vitamin D2 supplementation, results that are subtherapeutic should be confirmed with another method such as LC-MS/MS. Free T4 1.14 0.71-1.85 ng/dL TSH 3rd Gen. 2.62 0.32-4.0 uIU/mL Note: A sustained TSH level above 2.5 uIU/mL may warrant further investigation. TSH 3rd Generation ([facility]) Assessment and Plan Assessment & Plan (1) Anxiety and depression: Code(s): F41.9 - Anxiety disorder, unspecified; F32.A - Depression, unspecified Plan: Stable and controlled on fluoxetine, and takes diphenhydramine 25 mg as needed at bedtime for insomnia, which has been helping, does not wake up groggy in the morning after taking it. (2) Impaired fasting glucose: Code(s): R73.01 - Impaired fasting glucose Plan: Your fasting blood sugars elevated above 100 mg/dL. Impaired glucose metabolism O2 at risk for developing diabetes mellitus type 2, as well as heart attack and stroke later on. Lifestyle changes at just weight loss, healthy eating habits, and regular exercise are important, and can prevent the progression to diabetes (3) Dyslipidemia: Code(s): E78.5 - Hyperlipidemia, unspecified Plan: Reviewed recent fasting lipid profile with patient with levels within normal limits . Continue with atorvastatin 20 mg daily t , in addition to adherence to low-cholesterol diet and regular exercise, at least 30 minutes 3 to 4 times a week. Advised patient to make healthy food choices, eat more fruits, vegetables, whole grains, wild caught fish and low-fat dairy. Limit amount of meat and fried or fatty food products, as well as processed foods and fast foods. Follow-up scheduled with repeat fasting lipid panel in 6 months. (4) Acquired hypothyroidism: Code(s): E03.9 - Hypothyroidism, unspecified Plan: Thyroid levels are within normal limits, continue current dose of levothyroxine at 88 mcg daily in the morning Orders: Orders Thyroid Stimulating Hormone 6 Months E03.9 - Hypothyroidism, unspecified, E78.5 - Hyperlipidemia, unspecified, F32.A - Depression, unspecified, F41.9 - Anxiety disorder, unspecified, R73.01 - Impaired fasting glucose Free T4 (Free Thyroxine) 6 Months E03.9 - Hypothyroidism, unspecified, E78.5 - Hyperlipidemia, unspecified, F32.A - Depression, unspecified, F41.9 - Anxiety disorder, unspecified, R73.01 - Impaired fasting glucose Lipid Panel 6 Months E03.9 - Hypothyroidism, unspecified, E78.5 - Hyperlipidemia, unspecified, F32.A - Depression, unspecified, F41.9 - Anxiety disorder, unspecified, R73.01 - Impaired fasting glucose Aspartate Amino Transferase 6 Months E03.9 - Hypothyroidism, unspecified, E78.5 - Hyperlipidemia, unspecified, F32.A - Depression, unspecified, F41.9 - Anxiety disorder, unspecified, R73.01 - Impaired fasting glucose Basic Metabolic Panel Fasting 6 Months E03.9 - Hypothyroidism, unspecified, E78.5 - Hyperlipidemia, unspecified, F32.A - Depression, unspecified, F41.9 - Anxiety disorder, unspecified, R73.01 - Impaired fasting glucose Vitamin D 25-OH Total 6 Months E03.9 - Hypothyroidism, unspecified, E78.5 - Hyperlipidemia, unspecified, F32.A - Depression, unspecified, F41.9 - Anxiety disorder, unspecified, R73.01 - Impaired fasting glucose Coding Level of Care Code Est Pt Level 4 (05421) Diagnoses Anxiety and depression F41.9; F32.A Impaired fasting glucose R73.01 Dyslipidemia E78.5 Acquired hypothyroidism E03.9
[2023-09-05 13:02] VITALS: BP 122/70; PULSE 63; O2SAT 96; BMI 25.5
== END 2023-09-05 13:35 | disposition home or self-care (01) ==
PROVIDERS: PCP Internal Medicine; Visit Provider Internal Medicine
DX: F41.9 Anxiety disorder, unspecified (principal); F32.A Depression, unspecified; R73.01 Impaired fasting glucose; E78.5 Hyperlipidemia, unspecified; E03.9 Hypothyroidism, unspecified
CPT/HCPCS: 99214

== ENCOUNTER 2024-04-26 07:31 | Outpatient (REF) | payer MEDICARE, MEDICAID, SELFPAY ==
[2024-04-26 08:31] LABS: Anion Gap 14 (12-20); Aspartate Amino Transferase 23 U/L (5-31); Blood Urea Nitrogen 10 mg/dL (9-16); Calcium 9.4 mg/dL (8.4-10.2); Carbon Dioxide 26 mmol/L (22-29); Chloride 105 mmol/L (96-108); Cholesterol 175 mg/dL (<200); Estimated Glomerular Filt Rate > 60; Glucose Fasting 100 mg/dL (60-99); HDL Cholesterol 70 mg/dL (>40); LDL Cholesterol Calculated 81 mg/dL (<100); Potassium 4.6 mmol/L (3.3-5.1); Sodium 140 mmol/L (135-145); Triglycerides 122 mg/dL (<150)
[2024-04-26 08:47] LABS: Thyroid Stimulating Hormone 1.12 uIU/mL (0.32-4.0); Vitamin D 25-OH Total 36.2 ng/mL (>30)
== END 2024-04-26 07:32 | disposition home or self-care (01) ==
LOC: HO.LAB 07:31
PROVIDERS: PCP Internal Medicine; Visit Provider Internal Medicine
DX: Z13.89 Encounter for screening for other disorder (principal)
CPT/HCPCS: 36415; 80048; 80061; 82306; 84439; 84443; 84450

== ENCOUNTER 2024-04-26 14:15 | Outpatient (AMB) | payer MEDICARE, MEDICAID, SELFPAY ==
[2024-04-26 14:18] VITALS: BP 100/60; PULSE 69; O2SAT 96; BMI 25.9
--- NOTE | 2024-04-26 14:18 | MHC.PC.OV ---
Vital Signs 04/26/24 14:18 Height 5 ft 3 in Weight 146 lb BMI 25.9 BP 100/60 Blood Pressure Location Lt brachial Position Sitting Pulse 69 Pulse Source Pulse Oximeter Pulse Oximetry (%) 96 Oxygen Delivery Method Room Air Intake Visit Reasons: frequent falls Intake Note: Pt is here today c/o frequent falls Allergies No Known Allergies Allergy (Verified 04/26/24 15:12) Medication List - Last Reconciled 04/26/24 by Ivy Lee MD acetaminophen (Tylenol Extra Strength) 500 mg PO Q6H PRN atorvastatin 20 mg PO BEDTIME cholecalciferol (vitamin D3) (Vitamin D3) 25 mcg PO DAILY diphenhydramine HCl (Benadryl) 25 mg PO BEDTIME PRN fluoxetine 80 mg (2 x 40 mg) PO DAILY levothyroxine 88 mcg PO DAILY@0630 timolol maleate 0.5% 1 drp ophthalmic (eye) DAILY Tobacco use date assessed: 04/26/24 Fall risk assessment: 2 + Falls in past year Last assessed Fall Risk: 04/26/24 Dental Screening Dental Screen Date: 04/26/24 Did you have a dental visit in the last 12 months?: No Was dental information given to patient?: No HPI frequent falls HPI Details 83-year-old lady here today complaining of pain in her left hip and left knee. Patient states that she has had 2 falls in the last several months due to left knee and hip giving out on her or left knee not moving right away when she pivots. She is also here today for follow-up on her lipids, currently on atorvastatin 20 mg daily, and has acquired hypothyroidism currently on levothyroxine 88 mcg daily. Recent fasting labs showed lipids and thyroid levels are within normal limits. [facility] Medical History Left knee pain Hip pain, left Frequent falls Anxiety and depression Glaucoma Impaired fasting glucose Hx of migraine headaches Pain of left calf Ocular migraine Hearing loss Mammogram declined Colonoscopy refused Obsessive-compulsive disorder Menopause Dyslipidemia Acquired hypothyroidism Surgical History No pertinent past surgical history Family History Father Substance use disorder Brother Substance use disorder Brother Substance use disorder Social History Household Members: None Housing: Other Housing Other:: independent living (in own apartment) Do you presently have visiting nurse or other home services: No Alcohol intake: never Patient Tobacco Use Status: Never used Tobacco e-Cigarette/Vaping Use: Never Used Advance Directives Date on File: 06/17/22 service: No Current occupational status: retired Cognitive needs: No Hearing needs: Yes Vision needs: Yes Questionnaire PHQ-9 Over the last 2 weeks, how often have you been bothered by any of the following problems? Depression Screening Interpretation: Negative (Better controlled on fluoxetine 80 mg daily) Depression Screening Done: Yes Source: Developed by Drs. Jeff Warner, Anjelica Encinas, Diomedes Kemp and colleagues, with an educational lauren from [employer]. Thrive Questionnaire Date Thrive assessed: 01/07/23 ANJANA-7 AMB Questionnaire ANJANA-7 Date ANJANA - 7 assessed: 07/26/23 Source: Developed by Drs. Jeff Warner, Anjelica Encinas, Diomedes Kemp and colleagues, with an educational lauren from [employer]. Review of Systems Const Reports as per HPI ENT Reports no additional complaints and Reports hearing loss (Bilateral) Card Denies chest pain, Denies rapid heart rate, Denies irregular heart rhythm, Denies lightheadedness, Denies dyspnea and Denies dyspnea on exertion Resp Denies dyspnea and Denies dyspnea on exertion GI Reports no additional complaints Musc Reports as per HPI, Denies joint swelling and Denies muscle weakness Neuro Reports no additional complaints Psych Reports no additional complaints Endo Reports no additional complaints Mauricio/Lymph Reports no additional complaints Aller/Immun Reports no additional complaints Physical exam (Primary Care) Vital Signs: Last Vital Signs Pulse 69 04/26/24 14:18 BP 100/60 04/26/24 14:18 Pulse Ox 96 04/26/24 14:18 Oxygen Delivery Method Room Air 04/26/24 14:18 BMI result Body Mass Index 25.9 Tobacco/Smoking Status: Tobacco use Status Tobacco use date assessed 04/26/24 04/26/24 14:23 Patient Tobacco Use Status Never used Tobacco 04/26/24 14:23 e-Cigarette/Vaping Use Never Used 05/30/24 14:23 Depression Screening Interpretation: Negative (Better controlled on fluoxetine 80 mg daily) Thrive Assessment: Date of Thrive Assessment Date Thrive assessed 01/07/23 04/26/24 14:23 Const Other: Elderly lady looks younger than stated age, Alert oriented x3, no acute cardiorespiratory distress, ambulatory with normal gait HENMT Ears: external ears normal General nose exam: Normal external nose present Face and sinus: Yes face symmetric Mouth: tongue normal, oropharynx normal and moist mucous membranes Eyes General: appearance normal, both eyes and all related structures Pupils: Equal, round and reactive pupils present EOM: EOMs intact bilaterally Neck Neck: Yes full ROM, Yes no lymphadenopathy and Yes supple Thyroid: Thyroid normal Resp Effort & Inspection: normal respiratory effort, able to speak in complete sentences, no cough and no retractions Cardio Rate: regular rate Rhythm: regular rhythm Heart sounds: S1 normal heart sound present GI Palpation (GI): Soft to palpation, nontender, no guarding and no masses Auscultation: normal bowel sounds Skin General skin exam: no rashes or lesions noted Neuro Cranial nerves: Yes Equal, round and reactive pupils present Cognition (Neuro): normal cognition Extrem Other: Tenderness on palpation over left patella, positive crepitus bilaterally, left more than the right no tenderness on palpation over lateral aspect of left hip, full range of motion of joint General: Yes full ROM, Yes no joint enlargement and Yes no calf tenderness Psych Appearance: grossly normal and well kempt Mental Status: mental status grossly normal Speech and movement: Normal speech and movement present Affect: normal affect Attitude: cooperative Thought process: Normal thought process present Results Reviewed Results Reviewed: Name: Estefani Ceron Sr Age/Sex: 83/F [facility] 1940 [id number] Unit#: [id number] Attend Dr: Ivy Lee MD Re04/26/24 Status: REG REF Location: .LAB Disch: SPEC : [id number] NANO: 04/26/24 STATUS: COMP REQ : [id number] RECD: 04/26/[address]: Ivy Lee MD COMP: 04/26/24 ENTERED: 04/26/[address]: ORDERED: Met Prof Fast, AST, Lipid Panel, Vitamin D 25-OH, Free T4, TSH Test Result Flag Reference Sodium 140 135-145 mmol/L Potassium 4.6 3.3-5.1 mmol/L CL 105 96-108 mmol/L CO2 26 22-29 mmol/L Gap 14 12-20 BUN 10 9-16 mg/dL Creat 0.78 0.5-1.4 mg/dL EGFR > 60 NOTE: For -[place] individuals, multiply the result by 1.210. Chronic Kidney Disease: Estimated GFR < 60 mL/min/1.73m2 Severe Kidney Disease: Estimated GFR < 15 mL/min/1.73m2 FBS 100 H 60-99 mg/dL A fasting glucose from 100-125 mg/dl is considered impaired (pre-diabetes). CA 9.4 8.4-10.2 mg/dL AST (GOT) 23 5-31 U/L Triglyceride 122 <150 mg/dL Desirable Triglyceride: less than 150 mg/dL Borderline High Triglyceride 150-199 mg/dL High Triglyceride: 200-499 mg/dL Very High Triglyceride: greater than or equal to 5OO mg/dL Cholesterol 175 <200 mg/dL Desirable Cholesterol: less than 200 mg/dL Borderline High Cholesterol: 200-239 mg/dL High Cholesterol: greater than 239 mg/dL LDL Calculated 81 <100 mg/dL Desirable LDL: less than 100 mg/dL Near Optimal/Above Optimal LDL: 110-129 mg/dL Borderline High LDL: 130-159 mg/dL High LDL: 160-189 mg/dL Very High LDL: greater than or equal to 190 mg/dL HDL 70 >40 mg/dL Desirable HDL: greater than 40 mg/dL Note: This HDL assay may give artificially low results in patients with liver disease. Vit D 25-OH Tot 36.2 >30 ng/mL Health Based Reference Values* < 20 ng/mL Deficient 20-30 ng/mL Insufficient > 30 ng/mL Sufficient *Edgardo RIZZO. N Engl J Med. 2007;357:266-280 Care must be taken in interpreting Vitamin D results from different laboratories and methodologies. Published data demonstrated that results from patients undergoing hemodialysis may show a negative bias when tested with various automated 25-OH vitamin D assays when compared to LC-MS/MS. When testing samples from patients whose predominant form of Vitamin D is Vitamin D2, such as patients receiving Vitamin D2 supplementation, results that are subtherapeutic should be confirmed with another method such as LC-MS/MS. Free T4 1.10 0.71-1.85 ng/dL TSH 3rd Gen. 1.12 0.32-4.0 uIU/mL TSH 3rd Generation ([facility]) Assessment and Plan Assessment & Plan (1) Frequent falls: Code(s): R29.6 - Repeated falls Plan: Referred to physical therapy for further evaluation management. (2) Hip pain, left: Code(s): M25.552 - Pain in left hip Plan: Ordered x-ray of left hip joint (3) Left knee pain: Code(s): M25.562 - Pain in left knee Plan: Ordered x-ray of left knee. Continue taking Tylenol 500 mg 1 tablet every 8 hours as needed. (4) Hearing loss: Code(s): H91.90 - Unspecified hearing loss, unspecified ear Qualifiers: Hearing loss type: unspecified Laterality: bilateral Qualified Code(s): H91.93 - Unspecified hearing loss, bilateral Plan: Referred to [facility] [place] [facility] for further evaluation management Orders: Orders XR hip LT min 2V Today M25.552 - Pain in left hip, M25.562 - Pain in left knee, R29.6 - Repeated falls XR knee LT 4V Today M25.552 - Pain in left hip, M25.562 - Pain in left knee, R29.6 - Repeated falls PT Evaluation and Treatment Today M25.552 - Pain in left hip, M25.562 - Pain in left knee, R29.6 - Repeated falls Referrals Speech and Hearing Referral H91.90 - Unspecified hearing loss, unspecified ear Coding Level of Care Code Est Pt Level 4 (44936) Diagnoses Frequent falls R29.6 Hip pain, left M25.552 Left knee pain M25.562 Bilateral hearing loss, unspecified hearing loss type H91.93 Hearing loss type: unspecified Laterality: bilateral
== END 2024-04-26 15:17 | disposition home or self-care (01) ==
PROVIDERS: PCP Internal Medicine; Visit Provider Internal Medicine
DX: R29.6 Repeated falls (principal); M25.552 Pain in left hip; M25.562 Pain in left knee; H91.93 Unspecified hearing loss, bilateral
CPT/HCPCS: 99214

== ENCOUNTER 2024-04-26 15:13 | Outpatient (REF) | payer MEDICARE, MEDICAID, SELFPAY ==
--- NOTE | ~2024-04-26 | XR_ITS ---
EXAMINATION: XR HIP, LEFT CLINICAL INFORMATION: Left hip pain COMPARISON: None available. TECHNIQUE: Two views of the left hip. FINDINGS: No fracture. Alignment is anatomic. Hip joint space is maintained. Soft tissues are unremarkable. XR/XR hip LT min 2V IMPRESSION: Normal left hip.
--- NOTE | ~2024-04-26 | XR_ITS ---
EXAMINATION: XR KNEE, LEFT CLINICAL INFORMATION: Knee pain COMPARISON: None available. TECHNIQUE: Four views of the left knee. FINDINGS: There is mild narrowing and marginal spurring causing medial aspect of the left knee joint. There is patellofemoral compartment narrowing and spurring. There is no joint effusion. Soft tissues unremarkable. XR/XR knee LT 4V IMPRESSION: Mild degenerative changes in the medial compartment and patellofemoral compartment
== END 2024-04-26 15:14 | disposition home or self-care (01) ==
LOC: HO.HMGCX 15:13
PROVIDERS: PCP Internal Medicine; Visit Provider Internal Medicine
DX: M25.552 Pain in left hip (principal); M25.562 Pain in left knee; R29.6 Repeated falls; F41.1 Generalized anxiety disorder; F32.A Depression, unspecified; E03.9 Hypothyroidism, unspecified; R73.01 Impaired fasting glucose; E78.5 Hyperlipidemia, unspecified
CPT/HCPCS: 36415; 73502; 73564; 80048; 80061; 82306; 84439; 84443; 84450

== ENCOUNTER 2024-06-21 10:15 | Outpatient (REF) | payer MEDICARE, MEDICAID, SELFPAY ==
--- NOTE | 2024-06-21 11:18 | MHC.AU.MED ---
Medical Clearance for Hearing Instrumentation Date: 06/21/24 Patient Name: Estefani Ceron Sr Date of : 1940 Primary Care Provider: Referring Provider: Ivy Lee MD We have seen your patient on 06/21/24 and have determined that they are a candidate for amplification (See accompanying report). Specifically, they would benefit from: Hearing aid use in both ears There is a statute that addresses Medical Evaluation Requirements prior to fitting a patient with a hearing aid. According to [place] statute 265 CMR:6.03(1), (a) General. Except as provided in 265 CMR 6.03(1)(b), a retail wireless sales consultant shall not sell a hearing aid unless the prospective user has presented to the retail wireless sales consultant a written statement signed by a licensed physician that states that the patient's hearing loss has been medically evaluated and the patient may be considered a candidate for a hearing aid. The medical evaluation must have taken place within the preceding six months. Please note: Due to the [place] Statute referenced above, we cannot accept a signature other than that of a licensed physician. CHEMISTRY PROFESSOR and PA signatures cannot be accepted. I am in agreement with the above recommendation. There is no medical contraindication for hearing instrumentation. Physician Signature Date Physician Name (Printed)
--- NOTE | 2024-06-29 12:17 | MHC.AU.HA1 ---
Hearing Aid Evaluation Date of Visit: 06/21/24 Historical Information: Description of Hearing: Mild to moderately severe sensorineural hearing loss bilaterally Summary: Pat is here for evaluation (see audiogram) and hearing aid discussion. She reports difficulty hearing in one-on-one situations, in the car, and in group settings. She notes she tried an amplifier from [[employer] but it did not work out. Discussed options for styles, she selected rechargeable RICs. She has an android phone she would like to connect for phone calls. Selected Phonak Audeo L70 R in [place]. Will submit medical clearance to PCP. Hearing Aid Prescription: Based on the individual?s shared listening needs, communication environments, dexterity, desire for connectivity, and personal preferences, the following prescription for amplification has been made: Right ear: Make, Model, Color: Phonak Audeo L70 R, beige Battery Size: Rechargeable Accounting Tutor/Slim Tube: 0m Type of Earmold/Dome/CShell/SlimTip: medium power Left ear: Left ear prescription to be same as Right Hearing Aid above: Make, Model, Color: Phonak Audeo L70 R, beige Battery Size: Rechargeable Accounting Tutor/Slim Tube: 0m Type of Earmold/Dome/CShell/SlimTip: medium power Accessories/Assistive Technology Recommended: investment specialist Plan of Care: Patient wishes to purchase hearing aids as prescribed Action Taken/Action Needed: Medical Clearance to be requested from PCP/ENT Hearing Instrument Fitting to be scheduled when materials arrive Primary Diagnosis: H90.3 Bilateral Sensorineural Hearing Loss Signature: Provider: Jessica Paredes, CCC-A
== END 2024-06-21 10:16 | disposition home or self-care (01) ==
LOC: HO.SH 10:15
PROVIDERS: Visit Provider Internal Medicine
DX: Z01.118 Encounter for examination of ears and hearing with other abnormal findings (principal); Z46.1 Encounter for fitting and adjustment of hearing aid; H90.3 Sensorineural hearing loss, bilateral
CPT/HCPCS: 92557; 92591

== ENCOUNTER 2024-07-11 14:56 | Outpatient (REF) | payer MEDICARE, MEDICAID, SELFPAY | END 2024-07-11 14:57 | disposition home or self-care (01) | LOC: HO.HAP 14:56 | PROVIDERS: Visit Provider Internal Medicine | DX: Z46.1 Encounter for fitting and adjustment of hearing aid (principal); H90.3 Sensorineural hearing loss, bilateral | CPT/HCPCS: V5011; V5020; V5160; V5261 ==

== ENCOUNTER 2024-07-31 09:54 | Outpatient (AMB) | payer MEDICARE, MEDICAID, SELFPAY ==
--- NOTE | 2024-07-31 10:39 | A.OFFVIS_ITS ---
Intake Vital Signs 07/31/24 10:58 Height 5 ft 3 in Weight 146 lb BMI 25.9 BP 100/60 Blood Pressure Location Lt brachial Position Sitting Pulse 62 Pulse Source Pulse Oximeter Pulse Oximetry (%) 97 Oxygen Delivery Method Room Air Intake Visit Reasons: SHAUNNA G0439 Intake Note: Pt is here today for her SWV Allergies No Known Allergies Allergy (Verified 07/31/24 11:06) Medication List - Last Reconciled 07/31/24 by Ivy Lee MD acetaminophen (Tylenol Extra Strength) 500 mg PO Q6H PRN atorvastatin 20 mg PO BEDTIME cholecalciferol (vitamin D3) (Vitamin D3) 25 mcg PO DAILY diphenhydramine HCl (Benadryl) 25 mg PO BEDTIME PRN fluoxetine 80 mg (2 x 40 mg) PO DAILY levothyroxine 88 mcg PO DAILY@0630 timolol maleate 0.5% 1 drp ophthalmic (eye) DAILY HPI SWV G0439 HPI Details SWV ? 84 year old lady with past medical history for generalized anxiety disorder/depression/OCD, dyslipidemia, acquired hypothyroidism, glaucoma, prediabetes, history of migraine headaches, and hearing loss now wearing hearing aid, presents today for her subsequent annual wellness visit. She no longer gets screening mammograms, Pap smear , colonoscopy scree steve or bone density scan. She had recent fasting labs done which showed lipids within normal limits, fasting glucose is mildly elevated at 100 mg/dL and thyroid levels within normal limits. She is up-to-date with her flu shot and COVID vaccines, pneumonia vaccine, Tdap and Shingrix vaccine . She already has a MOLST form and healthcare proxy form completed. .? Medical / Social History Reviewed? Past Medical History ?Yes . ? [place] of Care / Care Team list updated ?Yes . ? Surgical/Hospitalization History ?Yes . ? Current Medications (including OTC and supplements) ?Yes . ? Family History ?Yes . ? Tobacco Control form ?Yes . ? AUDIT-C (Alcohol use) form ?Yes . ? Illicit drug use in Social History ?Yes . ? Current diagnosis of depression? ?Yes, stable and controlled on fluoxetine ? Appropriate PHQ2/PHQ9 completed ?Yes . ? Data entered by ?Pace Analyst and reviewed by provider ? Fall Risk ? Fall History? Have you had any falls with injury in the past year? ?No . ? Have you had two or more falls in the past year? ?No . ? Fall Risk Assessment: ?No falls in the past year . ? HRA filled out by the patient, reviewed by Provider and scanned. ?SWV ? Balance? Romberg ?Yes . ? Tandem walk ?unable . ? Walk and Turn ?Yes . ? Rise from sit to stand ?Yes . ?Vision? Corrective lens ?Yes ? Vision screen ? Up-to-date, sees Dr. Adams ?Hearing? Whisper test ?pass , but wears hearing aid ?Written Plan?Completed. See Patient Documents.? ON LICENSE OF [facility] Medical History (Updated 08/02/24 @ 04:19 by Ivy Lee MD) Generalized anxiety disorder Left knee pain Hip pain, left Frequent falls Anxiety and depression Glaucoma Impaired fasting glucose Hx of migraine headaches Pain of left calf Ocular migraine Hearing loss Mammogram declined Colonoscopy refused Obsessive-compulsive disorder Menopause Dyslipidemia Acquired hypothyroidism Surgical History No pertinent past surgical history Family History Father Substance use disorder Brother Substance use disorder Brother Substance use disorder Social History Household Members: None Housing: Other Housing Other:: independent living (in own apartment) Do you presently have visiting nurse or other home services: No Alcohol intake: never Patient Tobacco Use Status: Never used Tobacco e-Cigarette/Vaping Use: Never Used Advance Directives Date on File: 06/17/22 service: No Current occupational status: retired Cognitive needs: No Hearing needs: Yes Vision needs: Yes Questionnaire Medicare Wellness Checkup What is your age?: 80 or older What gender do you identify with?: female During the past 4 weeks, how much have you been bothered by emotional problems s uch as feeling anxious, depressed, irritable, sad or downhearted, and blue?: moderately During the past 4 weeks, has your physical & emotional health limited your social activities with family, friends, neighbors, or groups?: slightly During the past 4 weeks, how much bodily pain have you generally had?: moderate pain During the past 4 weeks, was someone available to help you if you needed & wanted help?: yes, as much as I wanted During the past 4 weeks, what was the hardest physical activity you could do for at least 2 minutes?: heavy Can you get to places out of walking distance without help? (For eg., can you travel alone on buses, taxis or drive your car?): Yes Can you go shopping for groceries or clothes without someone's help?: Yes Can you prepare your own meals?: Yes Can you do your housework without help?: Yes Because of any health problems, do you need the help of another person with your personal care needs such as eating, bathing, dressing or getting around the house?: No Can you handle your own money without help?: Yes During the past 4 weeks, how would you rate your health in general?: good During the past 4 weeks how have things been going for you?: pretty well Are you having difficulties driving your car?: no Do you always fasten your seat belt when you are in a car?: yes, usually During past 4 weeks, have you been bothered by the following: never: Falling or dizzy when standing up, Sexual problems?, Trouble eating well?, Teeth or denture problems?, Problems using the telephone? and Tiredness or fatigue? Have you fallen 2 or more times in the past year?: Yes Are you afraid of falling?: Yes Are you a smoker?: no During the past 4 weeks, how many drinks of wine, beer, or other alcoholic beverages did you have?: no alcohol at all Do you exercise for about 20 minutes 3 or more times a week?: yes, all the time Have you been given information to help with the following?: yes: Hazards in your house that might hurt you? and yes: Keeping track of your medications? How often do you have trouble taking medicines the way you have been told to take them?: I always take medicine as prescribed How confident are you that you can control & manage most of your health problems?: very confident What is your race?: White Mini Mental State Exam (MMSE) Orientation What is the (year) (season) (date) (day) (month)?: year (2023), season (summer), date (07/31/24), day (tuesday) and month (july) Where are we (state) (county) (town or city) (hospital) (floor)?: state ([place]), replaced by [facility] ([place]), town or city ([place]) and hospital/clinic Score Score: 9 Activity of Daily Living Bathing - sponge bath, tub bath or shower: receives no assistance (gets in/out by self, if usual bathing means Dressing - getting clothes from closets & drawers, including inner/outer garments & fasteners.: gets clothes & gets completely dressed without help Toileting - going to the 'toilet room' for urine/bowel elimination & cleaning self/arranging clothes: goes to toilet room, cleans self, arranges clothes without help Transfer: moves in & out of bed and chair without help (may use support object) Continence: has occasional 'accidents' Feeding: feeds self without help Total Score: 0 Information obtained from: patient Using telephone: independent Traveling: independent Shopping: independent Preparing meals: independent Housework: independent Taking medicine: independent Managing money: independent PHQ-9 Over the last 2 weeks, how often have you been bothered by any of the following problems? 1. Little interest or pleasure in doing things: not at all 2. Feeling down, depressed, or hopeless: not at all 3. Trouble falling or staying asleep, or sleeping too much: several days 4. Feeling tired or having little energy: not at all 5. Poor appetite or overeating: not at all 6. Feeling bad about yourself - or that you are a failure or have let yourself or your family down: not at all 7. Trouble concentrating on things, such as reading the newspaper or watching television: not at all 8. Moving or speaking so slowly that other people could have noticed. Or the opposite - being so fidgety or restless that you have been moving around a lot more than usual: not at all 9. Thoughts that you would be better off or of hurting yourself in some way: not at all Total score: 1 Depression Screening Interpretation: Negative Depression Screening Done: Yes [id number] - PHQ-9 Billing: Yes Source: Developed by Drs. Jeff Warner, Anjelica Encinas, Diomedes Kemp and colleagues, with an educational lauren from [employer]. Physical Exam Vital Signs: Last Vital Signs Pulse 62 07/31/24 10:58 BP 100/60 07/31/24 10:58 Pulse Ox 97 07/31/24 10:58 Oxygen Delivery Method Room Air 07/31/24 10:58 BMI result Body Mass Index 25.9 Assessment & Plan Assessment & Plan (1) Encounter for subsequent annual wellness visit (AWV) in Medicare patient: Code(s): Z00.00 - Encounter for general adult medical examination without abnormal findings Plan: Medical wellness checklist reviewed, discussed with patient and updated. Up-to-date with her vaccinations and routine labs (2) Anxiety and depression: Code(s): F41.9 - Anxiety disorder, unspecified; F32.A - Depression, unspecified Plan: Stable and controlled on fluoxetine 80 mg daily (3) Glaucoma: Code(s): H40.9 - Unspecified glaucoma Qualifiers: Glaucoma type: unspecified Plan: Followed by Dr. Adams, currently on timolol maleate 0.5% drops (4) Hearing loss: Code(s): H91.90 - Unspecified hearing loss, unspecified ear Qualifiers: Hearing loss type: unspecified Laterality: bilateral Qualified Code(s): H91.93 - Unspecified hearing loss, bilateral Plan: Recently received hearing aids bilaterally (5) Dyslipidemia: Code(s): E78.5 - Hyperlipidemia, unspecified Plan: Lipids within normal limits, continue with atorvastatin 20 mg at bedtime (6) Acquired hypothyroidism: Code(s): E03.9 - Hypothyroidism, unspecified Plan: Thyroid levels are within normal limits, currently on levothyroxine 88 mcg daily Quality Reporting (2019) Depression/Bipolar (159/160/161/177) PHQ-9: Total score: 1 Coding Level of Care Code Medicare Subsequent (G0439) Diagnoses Encounter for subsequent annual wellness visit (AWV) in Medicare patient Z00.00 Anxiety and depression F41.9; F32.A Glaucoma H40.9 Glaucoma type: unspecified Bilateral hearing loss, unspecified hearing loss type H91.93 Hearing loss type: unspecified Laterality: bilateral Dyslipidemia E78.5 Acquired hypothyroidism E03.9 CPT Codes Advance Care Planning - Advance Care Planning discussion: On file, no changes ([id number]) Advance Care Planning - Time spent: 1-15 minutes, on File ([id number]) Advance Care Planning Advance Care Planning discussion: On file, no changes Date of discussion: 07/31/24 Who was present: Patient Forms completed: Health Care Proxy and MOLST Time spent: 1-15 minutes, on File Actual minutes spent: 15
[2024-07-31 10:58] VITALS: BP 100/60; PULSE 62; O2SAT 97; BMI 25.9
== END 2024-07-31 11:28 | disposition home or self-care (01) ==
PROVIDERS: PCP Internal Medicine; Visit Provider Internal Medicine
DX: Z00.00 Encounter for general adult medical examination without abnormal findings (principal); F41.9 Anxiety disorder, unspecified; F32.A Depression, unspecified; H40.9 Unspecified glaucoma; H91.93 Unspecified hearing loss, bilateral; E78.5 Hyperlipidemia, unspecified; E03.9 Hypothyroidism, unspecified
CPT/HCPCS: 1123F; G0439

== ENCOUNTER 2024-08-02 13:41 | Outpatient (REF) | payer MEDICARE, MEDICAID, SELFPAY | END 2024-08-02 13:42 | disposition home or self-care (01) | LOC: HO.HAP 13:41 | PROVIDERS: Visit Provider Internal Medicine | DX: Z13.89 Encounter for screening for other disorder (principal) ==

== ENCOUNTER 2024-09-29 09:03 | Outpatient (AMB) | payer MEDICARE, MEDICAID, SELFPAY ==
--- NOTE | 2024-09-29 09:05 | MHC.OFFWIV ---
Intake Vital Signs 09/29/24 09:06 Height 5 ft 3 in Weight 146 lb BMI 25.9 BP 102/60 Blood Pressure Location Rt brachial Position Sitting Pulse 66 Pulse Source Pulse Oximeter Temp 97.7 F Temp Source Oral Pulse Oximetry (%) 98 Oxygen Delivery Method Room Air Intake Visit Reasons: EP-LT arm bug bite infection Intake Note: pt is here for left arm bite, possible infection Patient Tobacco Use Status: Never used Tobacco Allergies No Known Allergies Allergy (Verified 09/29/24 09:12) Medication List - Last Reconciled 09/29/24 by SANDRITA MillsP-BC acetaminophen (Tylenol Extra Strength) 500 mg PO Q6H PRN atorvastatin 20 mg PO BEDTIME cholecalciferol (vitamin D3) (Vitamin D3) 25 mcg PO DAILY diphenhydramine HCl (Benadryl) 25 mg PO BEDTIME PRN fluoxetine 80 mg (2 x 40 mg) PO DAILY levothyroxine 88 mcg PO DAILY@0630 timolol maleate 0.5% 1 drp ophthalmic (eye) DAILY Do you need a note to return to daycare/school/sports/work: No HPI HPI Comments History of Present Illness Details Very pleasant 84-year-old female here today with complaints of a bug bite on her left arm. She reports that she was outside and was bit by something 4 days ago. Shortly after the skin on the left upper arm became itchy. Since this time she has developed some swelling and redness and a little bit of warmth around the initial bite. This was not a tick. She tried applying ice and took 2 Benadryl without relief. She reports that it is terribly itchy. She reports that she has a known allergy to bug bites and has been treated successfully with doxycycline in the past. Exam Awake alert oriented no acute distress Left upper arm with with an obvious bite with surrounding erythema mild edema and warmth. This area was outlined with a surgical marker. Left arm was neurovascularly intact Plan She is up-to-date on her Tdap last given in 2015. Treat the area with doxycycline 1 tab p.o. b.i.d. x7 days Advised to use [id number] topical hydrocortisone sparingly twice per day to aid in the itching. Okay to apply ice or warm compresses. Do not scrub with a surgical marker. Advised that if the redness extends outside of the current markings, the area becomes hot to the touch or her symptoms do not seem to be improving that she needs to seek additional care. Otherwise this should resolve without incident. This note is constructed using voice recognition software. While every effort has been made to ensure accuracy in corporate administrative assistant, still errors may have been included Sometimes, these errors may affect the content or meaning of the given sentence . [facility] Medical History (Updated 08/02/24 @ 04:19 by Iyv Lee MD) Generalized anxiety disorder Left knee pain Hip pain, left Frequent falls Anxiety and depression Glaucoma Impaired fasting glucose Hx of migraine headaches Pain of left calf Ocular migraine Hearing loss Mammogram declined Colonoscopy refused Obsessive-compulsive disorder Menopause Dyslipidemia Acquired hypothyroidism Surgical History No pertinent past surgical history Family History Father Substance use disorder Brother Substance use disorder Brother Substance use disorder Social History Household Members: None Housing: Other Housing Other:: independent living (in own apartment) Do you presently have visiting nurse or other home services: No Alcohol intake: never Patient Tobacco Use Status: Never used Tobacco e-Cigarette/Vaping Use: Never Used Advance Directives Date on File: 06/17/22 service: No Current occupational status: retired Cognitive needs: No Hearing needs: Yes Vision needs: Yes Physical Exam Vital Signs: Last Vital Signs Temp 97.7 F 09/29/24 09:06 Pulse 66 09/29/24 09:06 BP 102/60 09/29/24 09:06 Pulse Ox 98 09/29/24 09:06 Oxygen Delivery Method Room Air 09/29/24 09:06 BMI result Body Mass Index 25.9 Assessment & Plan Assessment & Plan (1) Insect bite of arm, left, infected: Code(s): S40.862A - Insect bite (nonvenomous) of left upper arm, initial encounter; L08.9 - Local infection of the skin and subcutaneous tissue, unspecified; W57.XXXA - Bitten or stung by nonvenomous insect and other nonvenomous arthropods, initial encounter Qualifiers: Encounter type: initial encounter Qualified Code(s): S40.862A - Insect bite (nonvenomous) of left upper arm, initial encounter; L08.9 - Local infection of the skin and subcutaneous tissue, unspecified; W57.XXXA - Bitten or stung by nonvenomous insect and other nonvenomous arthropods, initial encounter Plan: . Medications: New doxycycline hyclate 100 mg PO BID 7 days 14 caps 0RF Coding Level of Care Code Est Pt Level 3 (50469) Diagnoses Infected insect bite of left upper extremity, initial encounter S40.862A; L08.9; W57.XXXA Encounter type: initial encounter
[2024-09-29 09:06] VITALS: BP 102/60; PULSE 66; TEMP 36.5; O2SAT 98; BMI 25.9
== END 2024-09-29 09:31 | disposition home or self-care (01) ==
PROVIDERS: PCP Internal Medicine; Visit Provider Nurse Practitioner Family
DX: S40.862A Insect bite (nonvenomous) of left upper arm, initial encounter (principal); L08.9 Local infection of the skin and subcutaneous tissue, unspecified; W57.XXXA Bitten or stung by nonvenomous insect and other nonvenomous arthropods, initial encounter

== ENCOUNTER → 2024-09-29 09:03 | Outpatient (BNVA) | payer MEDICARE, MEDICAID, SELFPAY | PROVIDERS: PCP Internal Medicine; Visit Provider Nurse Practitioner Family | DX: S40.862A Insect bite (nonvenomous) of left upper arm, initial encounter (principal); W57.XXXA Bitten or stung by nonvenomous insect and other nonvenomous arthropods, initial encounter; L08.9 Local infection of the skin and subcutaneous tissue, unspecified | CPT/HCPCS: 99212 ==

== ENCOUNTER 2024-11-05 11:29 | Outpatient (AMB) | payer MEDICARE, MEDICAID, SELFPAY ==
[2024-11-05 12:34] VITALS: BP 112/60; PULSE 65; O2SAT 97; BMI 25.7
--- NOTE | 2024-11-05 12:34 | A.OFFPC_ITS ---
Vital Signs 11/05/24 12:34 Height 5 ft 3 in Weight 145 lb 2 oz BMI 25.7 BP 112/60 Blood Pressure Location Lt brachial Position Sitting Pulse 65 Pulse Source Pulse Oximeter Pulse Oximetry (%) 97 Oxygen Delivery Method Room Air Intake Visit Reasons: 3 month follow up Allergies No Known Allergies Allergy (Verified 11/05/24 12:56) Medication List - Last Reconciled 11/05/24 by Ivy Lee MD acetaminophen (Tylenol Extra Strength) 500 mg PO Q6H PRN atorvastatin 20 mg PO BEDTIME cholecalciferol (vitamin D3) (Vitamin D3) 25 mcg PO DAILY diphenhydramine HCl (Benadryl) 25 mg PO BEDTIME PRN fluoxetine 80 mg (2 x 40 mg) PO DAILY levothyroxine 88 mcg PO DAILY@0630 timolol maleate 0.5% 1 drp ophthalmic (eye) DAILY Tobacco use date assessed: 11/05/24 Fall risk assessment: 1 Fall in past year Last assessed Fall Risk: 11/05/24 Dental Screening Dental Screen Date: 11/05/24 Did you have a dental visit in the last 12 months?: No Did you have a dental problem in the last 6 months where you did not have access to dental care?: No Was dental information given to patient?: No HPI 3 month follow up HPI Details 84 year old lady with past medical histo ry for generalized anxiety disorder/depression/OCD, dyslipidemia, acquired hypothyroidism, glaucoma, prediabetes, history of migraine headaches, and hearing loss now wearing hearing aid, presents today for a follow-up visit. She has been feeling well, with anxiety/OCD controlled on fluoxetine 80 mg daily. Atorvastatin has been helping her control her cholesterol with last lipid levels within normal limits earlier this year. She has been feeling well on current dose of levothyroxine 88 mcg daily. [facility] Medical History Generalized anxiety disorder Left knee pain Hip pain, left Frequent falls Anxiety and depression Glaucoma Impaired fasting glucose Hx of migraine headaches Pain of left calf Ocular migraine Hearing loss Mammogram declined Colonoscopy refused Obsessive-compulsive disorder Menopause Dyslipidemia Acquired hypothyroidism Surgical History No pertinent past surgical history Family History Father Substance use disorder Brother Substance use disorder Brother Substance use disorder Social History Household Members: None Housing: Other Housing Other:: independent living (in own apartment) Do you presently have visiting nurse or other home services: No Alcohol intake: never Patient Tobacco Use Status: Never used Tobacco e-Cigarette/Vaping Use: Never Used Advance Directives Date on File: 06/17/22 service: No Current occupational status: retired Cognitive needs: No Hearing needs: Yes Vision needs: Yes Questionnaire PHQ-9 Over the last 2 weeks, how often have you been bothered by any of the following problems? 1. Little interest or pleasure in doing things: not at all 2. Feeling down, depressed, or hopeless: not at all 3. Trouble falling or staying asleep, or sleeping too much: several days 4. Feeling tired or having little energy: not at all 5. Poor appetite or overeating: not at all 6. Feeling bad about yourself - or that you are a failure or have let yourself or your family down: not at all 7. Trouble concentrating on things, such as reading the newspaper or watching television: not at all 8. Moving or speaking so slowly that other people could have noticed. Or the opposite - being so fidgety or restless that you have been moving around a lot more than usual: not at all 9. Thoughts that you would be better off or of hurting yourself in some way: not at all Total score: 1 Depression Screening Interpretation: Negative Depression Screening Done: Yes 08674 - PHQ-9 Billing: Yes Source: Developed by Drs. Jeff Warner, Anjelica Encinas, Diomedes Kemp and colleagues, with an educational lauren from [employer]. Thrive Questionnaire Date Thrive assessed: 11/05/24 I am a: Patient What is your living situation today?: I have a steady place to live Within the past 12 months, did the food you bought not last and you didn't have the money to get more?: Never true Within the past 12 months, did you worry whether your food would run out before you got money to buy more?: Never true Do you have trouble paying for medicines?: No Do you have trouble getting transportation to medical appointments?: No Do you have trouble paying your heating and electricity bill?: No Do you have trouble taking care of your child, family member or friend?: No Do you have trouble with day-to-day activities such as bathing, preparing meals, shopping, managing finances, etc.?: No Are you currently unemployed and looking for a job?: No Are you interested in more education?: I choose not to answer this question Please select the resources that you would like help with: None Currently or been in a relationship where the following occur: No concerns reported THRIVE Score: 0 AUDIT C Alcohol Use Questionnaire (AUDIT-C) 1. How often do you have a drink containing alcohol?: Never 3. How often do you have six or more drinks on one occasion?: Never Total Score: 0 Score Reviewed/Action Taken: Yes ANJANA-7 AMB Questionnaire ANJANA-7 Date ANJANA - 7 assessed: 11/05/24 Feeling nervous, anxious, or on edge: 0 = Not at all Not being able to stop or control worryin = Not at all Worrying too much about different things: 0 = Not at all Trouble relaxin = Not at all Being so restless that it is hard to sit still: 0 = Not at all Becoming easily annoyed or irritable: 0 = Not at all Feeling afraid as if something awful might happen: 0 = Not at all Total ANJANA-7 score (0-4 normal; 5-9 mild; 10-14 moderate; 15-21 severe): 0 Source: Developed by Drs. Jeff Warner, Anjelica Encinas, Diomedes Kemp and colleagues, with an educational lauren from [employer]. ANJANA-7 Assessment Billing ANJANA-7 Assessment Tool: ANJANA-7 Assessment 09099 Review of Systems Const Reports as per HPI ENT Reports no additional complaints and Reports hearing loss (Bilateral) Card Denies chest pain, Denies rapid heart rate, Denies irregular heart rhythm, Denies lightheadedness, Denies dyspnea and Denies dyspnea on exertion Resp Denies dyspnea and Denies dyspnea on exertion GI Reports no additional complaints Musc Reports as per HPI, Denies joint swelling and Denies muscle weakness Neuro Reports no additional complaints Psych Reports no additional complaints Endo Reports no additional complaints Mauricio/Lymph Reports no additional complaints Aller/Immun Reports no additional complaints Physical exam (Primary Care) Vital Signs: Last Vital Signs Pulse 65 11/05/24 12:34 BP 112/60 11/05/24 12:34 Pulse Ox 97 11/05/24 12:34 Oxygen Delivery Method Room Air 11/05/24 12:34 BMI result Body Mass Index 25.7 Tobacco/Smoking Status: Tobacco use Status Tobacco use date assessed 11/05/24 11/05/24 12:37 Patient Tobacco Use Status Never used Tobacco 11/05/24 12:37 e-Cigarette/Vaping Use Never Used 11/05/24 12:37 Depression Screening Interpretation: Negative Thrive Assessment: Date of Thrive Assessment Date Thrive assessed 11/05/24 11/05/24 12:37 Currently or been in a relationship where the following occur: No concerns reported Const Other: Elderly lady looks younger than stated age, Alert oriented x3, no acute cardiorespiratory distress, ambulatory with normal gait HENMT Ears: external ears normal General nose exam: Normal external nose present Face and sinus: Yes face symmetric Mouth: tongue normal, oropharynx normal and moist mucous membranes Eyes General: appearance normal, both eyes and all related structures Pupils: Equal, round and reactive pupils present EOM: EOMs intact bilaterally Neck Neck: Yes full ROM, Yes no lymphadenopathy and Yes supple Thyroid: Thyroid normal Resp Effort & Inspection: normal respiratory effort, able to speak in complete sentences, no cough and no retractions Cardio Rate: regular rate Rhythm: regular rhythm Heart sounds: S1 normal heart sound present GI Palpation (GI): Soft to palpation, nontender, no guarding and no masses Auscultation: normal bowel sounds Skin General skin exam: no rashes or lesions noted Neuro Cranial nerves: Yes Equal, round and reactive pupils present Cognition (Neuro): normal cognition Extrem General: Yes full ROM, Yes no joint enlargement and Yes no calf tenderness Psych Appearance: grossly normal and well kempt Mental Status: mental status grossly normal Speech and movement: Normal speech and movement present Affect: normal affect Attitude: cooperative Thought process: Normal thought process present Results Reviewed Results Reviewed: Name: Estefani Ceron Sr Age/Sex: 83/F : 1940 Unit#: [id number] Attend Dr: Ivy Lee MD Re04/26/24 Status: DEP [facility] Disch: SPEC : [id number] NANO: 04/26/24 STATUS: COMP REQ : [id number] RECD: 04/26/24 [facility] DR: Ivy Lee MD COMP: 04/26/24 ENTERED: 04/26/24 [facility] DR: ORDERED: Met Prof Fast, AST, Lipid Panel, Vitamin D 25-OH, Free T4, TSH Test Result Flag Reference Sodium 140 135-145 mmol/L Potassium 4.6 3.3-5.1 mmol/L CL 105 96-108 mmol/L CO2 26 22-29 mmol/L Gap 14 12-20 BUN 10 9-16 mg/dL Creat 0.78 0.5-1.4 mg/dL EGFR > 60 NOTE: For -[place] individuals, multiply the result by 1.210. Chronic Kidney Disease: Estimated GFR < 60 mL/min/1.73m2 Severe Kidney Disease: Estimated GFR < 15 mL/min/1.73m2 FBS 100 H 60-99 mg/dL A fasting glucose from 100-125 mg/dl is considered impaired (pre-diabetes). CA 9.4 8.4-10.2 mg/dL AST (GOT) 23 5-31 U/L Triglyceride 122 <150 mg/dL Desirable Triglyceride: less than 150 mg/dL Borderline High Triglyceride 150-199 mg/dL High Triglyceride: 200-499 mg/dL Very High Triglyceride: greater than or equal to 5OO mg/dL Cholesterol 175 <200 mg/dL Desirable Cholesterol: less than 200 mg/dL Borderline High Cholesterol: 200-239 mg/dL High Cholesterol: greater than 239 mg/dL LDL Calculated 81 <100 mg/dL Desirable LDL: less than 100 mg/dL Near Optimal/Above Optimal LDL: 110-129 mg/dL Borderline High LDL: 130-159 mg/dL High LDL: 160-189 mg/dL Very High LDL: greater than or equal to 190 mg/dL HDL 70 >40 mg/dL Desirable HDL: greater than 40 mg/dL Note: This HDL assay may give artificially low results in patients with liver disease. Vit D 25-OH Tot 36.2 >30 ng/mL Health Based Reference Values* < 20 ng/mL Deficient 20-30 ng/mL Insufficient > 30 ng/mL Sufficient *Holick MF. N Engl J Med. 2007;357:266-280 Care must be taken in interpreting Vitamin D results from different laboratories and methodologies. Published data demonstrated that results from patients undergoing hemodialysis may show a negative bias when tested with various automated 25-OH vitamin D assays when compared to LC-MS/MS. When testing samples from patients whose predominant form of Vitamin D is Vitamin D2, such as patients receiving Vitamin D2 supplementation, results that are subtherapeutic should be confirmed with another method such as LC-MS/MS. Free T4 1.10 0.71-1.85 ng/dL TSH 3rd Gen. 1.12 0.32-4.0 uIU/mL TSH 3rd Generation ([facility]) Coding Level of Care Code Est Pt Level 4 (64502) Complex EM visit Add On G2211 Diagnoses Generalized anxiety disorder F41.1 Acquired hypothyroidism E03.9 Dyslipidemia E78.5 Impaired fasting glucose R73.01 Additional Codes ANJANA-7 Assessment Billing - ANJANA-7 Assessment Tool: ANJANA-7 Assessment 21004 ([id number]) PHQ-9 - 22294 - PHQ-9 Billing: Yes ([id number]) Assessment & Plan Assessment & Plan (1) Generalized anxiety disorder: Code(s): F41.1 - Generalized anxiety disorder Category: Medical Plan: Continue fluoxetine 80 mg daily (2) Acquired hypothyroidism: Code(s): E03.9 - Hypothyroidism, unspecified Category: Medical Plan: Continue levothyroxine 88 mcg daily. Repeat TSH and free T4 ordered (3) Dyslipidemia: Code(s): E78.5 - Hyperlipidemia, unspecified Category: Medical Plan: Ordered repeat fasting lipid panel and liver enzymes. Continue with atorvastatin 20 mg daily (4) Impaired fasting glucose: Code(s): R73.01 - Impaired fasting glucose Category: Medical Plan: Your previous fasting blood sugars were elevated above 100 mg/dL. Impaired glucose metabolism increases the risk for developing diabetes mellitus type 2, as well as heart attack and stroke later on. Lifestyle changes that promotes weight loss, healthy eating habits, and regular exercise are important, and can prevent the progression to diabetes Orders: Orders Alanine Aminotransferase 11/05/24 E03.9 - Hypothyroidism, unspecified, E78.5 - Hyperlipidemia, unspecified, F41.1 - Generalized anxiety disorder, F42.9 - Obsessive-compulsive disorder, unspecified, R73.01 - Impaired fasting glucose Aspartate Amino Transferase 11/05/24 E03.9 - Hypothyroidism, unspecified, E78.5 - Hyperlipidemia, unspecified, F41.1 - Generalized anxiety disorder, F42.9 - Obsessive-compulsive disorder, unspecified, R73.01 - Impaired fasting glucose Lipid Panel 11/05/24 E03.9 - Hypothyroidism, unspecified, E78.5 - Hyperlipidemia, unspecified, F41.1 - Generalized anxiety disorder, F42.9 - Obsessive-compulsive disorder, unspecified, R73.01 - Impaired fasting glucose Thyroid Stimulating Hormone 11/05/24 E03.9 - Hypothyroidism, unspecified Free T4 (Free Thyroxine) 11/05/24 E03.9 - Hypothyroidism, unspecified Basic Metabolic Panel Fasting 11/05/24 E03.9 - Hypothyroidism, unspecified, E78.5 - Hyperlipidemia, unspecified, F41.1 - Generalized anxiety disorder, F42.9 - Obsessive-compulsive disorder, unspecified, R73.01 - Impaired fasting glucose Vitamin D 25-OH Total 11/05/24 E03.9 - Hypothyroidism, unspecified, E78.5 - Hyperlipidemia, unspecified, F41.1 - Generalized anxiety disorder, F42.9 - Obsessive-compulsive disorder, unspecified, R73.01 - Impaired fasting glucose Complete Blood Count Auto Diff 11/05/24 E03.9 - Hypothyroidism, unspecified, E78.5 - Hyperlipidemia, unspecified, F41.1 - Generalized anxiety disorder, F42.9 - Obsessive-compulsive disorder, unspecified, R73.01 - Impaired fasting glucose
== END 2024-11-05 13:51 | disposition home or self-care (01) ==
PROVIDERS: PCP Internal Medicine; Visit Provider Internal Medicine
DX: F41.1 Generalized anxiety disorder (principal); E03.9 Hypothyroidism, unspecified; E78.5 Hyperlipidemia, unspecified; R73.01 Impaired fasting glucose

== ENCOUNTER → 2024-11-05 11:29 | Outpatient (BNVA) | payer MEDICARE, MEDICAID, SELFPAY | PROVIDERS: PCP Internal Medicine; Visit Provider Internal Medicine | DX: F41.1 Generalized anxiety disorder (principal); E03.9 Hypothyroidism, unspecified; E78.5 Hyperlipidemia, unspecified; R73.01 Impaired fasting glucose | CPT/HCPCS: 96127; 99212 ==

== ENCOUNTER 2024-11-24 07:53 | Outpatient (REF) | payer MEDICARE, MEDICAID, SELFPAY ==
[2024-11-24 08:10] LABS: MANUAL DIFF FLAG NO
[2024-11-24 08:36] LABS: Basophils Percent Auto 0.6 % (0-2); Eosinophils Absolute Auto 0.1 X10*3/uL (0.0-0.4); Eosinophils Percent Auto 1.9 % (0-4); Hematocrit 39.9 % (37.0-47.0); Hemoglobin 13.2 g/dl (12.0-16.0); Imm Gran Abs Auto 0.01 X10*3/uL (0.00-0.03); Imm Gran Pct Auto 0.2 % (0.0-0.4); Lymphocytes Absolute Auto 0.9 X10*3/uL (1.2-4.9); Lymphocytes Percent Auto 19.4 % (20-40); Mean Corpuscular HGB Conc 33.1 g/dl (31.0-35.0); Mean Corpuscular Hemoglobin 32.3 pg (27.0-33.0); Mean Corpuscular Volume 97.6 fL (80.0-98.0); Mean Platelet Volume 10.2 fL (9.4-12.3); Monocytes Absolute Auto 0.4 X10*3/uL (0.1-1.2); Monocytes Percent Auto 8.2 % (2-11); Neutrophils Absolute Auto 3.3 x10*3/uL (2.0-8.3); Neutrophils Percent Auto 69.7 % (45-73); Platelet Count 229 X10*3/uL (160-400); Red Blood Count 4.09 X10*6/uL (4.20-5.50); Red Cell Distribution Width 12.2 % (11.0-16.0); White Blood Count 4.8 X10*3/uL (4.8-10.8)
[2024-11-24 09:06] LABS: Alanine Aminotransferase 20 U/L (0-31); Anion Gap 12 (12-20); Aspartate Amino Transferase 25 U/L (5-31); Blood Urea Nitrogen 12 mg/dL (9-16); Calcium 9.5 mg/dL (8.4-10.2); Carbon Dioxide 27 mmol/L (22-29); Chloride 106 mmol/L (96-108); Cholesterol 169 mg/dL (<200); Estimated Glomerular Filt Rate > 60; Glucose Fasting 96 mg/dL (60-99); HDL Cholesterol 62 mg/dL (>40); LDL Cholesterol Calculated 82 mg/dL (<100); Potassium 4.7 mmol/L (3.3-5.1); Sodium 140 mmol/L (135-145); Triglycerides 128 mg/dL (<150)
[2024-11-24 09:22] LABS: Free T4 (Free Thyroxine) 1.14 ng/dL (0.71-1.85); Thyroid Stimulating Hormone 0.94 uIU/mL (0.32-4.0)
== END 2024-11-24 07:54 | disposition home or self-care (01) ==
LOC: HO.LAB 07:53
PROVIDERS: PCP Internal Medicine; Visit Provider Internal Medicine
DX: F41.1 Generalized anxiety disorder (principal); R73.01 Impaired fasting glucose; E78.5 Hyperlipidemia, unspecified; F42.9 Obsessive-compulsive disorder, unspecified; E03.9 Hypothyroidism, unspecified
CPT/HCPCS: 36415; 80048; 80061; 82306; 84439; 84443; 84450; 84460; 85025

== ENCOUNTER 2024-12-13 09:18 | Outpatient (AMB) | payer MEDICARE, MEDICAID, SELFPAY ==
--- NOTE | 2024-12-13 10:09 | AM.OFFWIN_ITS ---
Intake Vital Signs 12/13/24 10:10 Height 5 ft 3 in Weight 145 lb BMI 25.7 BP 110/70 Blood Pressure Location Lt brachial Position Sitting Pulse 67 Pulse Source Pulse Oximeter Temp 98.4 F Temp Source Oral Pulse Oximetry (%) 96 Oxygen Delivery Method Room Air Intake Visit Reasons: EP-chest congestion Intake Note: Pt is here today for a walk in visit. Pt c/o cough, chest congestion for 3 weeks now. Pt tried otc meds and they are not helping. Pt had 3 home tests done for covid and all were negative. Patient Tobacco Use Status: Never used Tobacco Allergies No Known Allergies Allergy (Verified 12/13/24 10:14) HPI HPI Comments History of Present Illness Details History - The patient is an 84-year-old female p resenting with persistent chest congestion over a three-week duration. - The patient has a history of chronic s inusitis, with past sinus infections treated with antibiotics such as Doxycycline. - No fever or shortness of breath has be en recorded, but there is mild wheezing. - The patient has self-treated symptoms with [id number] medications and has tested negative for COVID-19 three times. - Oxygen saturation levels remain normal at 96%. Physical Exam General: Cooperative, healthy appearing, comfortable and no acute distress Orientation/consciousness: Patient oriented x3 Limitations: No limitations Head: Normal to inspection Ears: Hearing grossly normal bilaterally, external ears normal and TM's normal bilaterally Nose: Normal external nose present, Normal nares present and No nasal discharge present Face and sinus: Normal facial exam and Sinuses nontender Mouth: Normal oral and palatal mucosa present and moist mucous membranes Throat: Yes tonsils normal, Yes uvula midline. Posterior oropharynx slight erythema Eyes: Appearance normal, both eyes and all related structures Neck: Normal visual inspection Respiratory: Clear to auscultation bilaterally. Normal respiratory effort, able to speak in complete sentences, Actively coughing, no respiratory distress, not tachypneic, no tripod positioning and no use of accessory muscles. Cardiovascular: Regular rate and rhythm. Normal S1 and S2 Skin: No rashes or lesions noted Neuro: Patient oriented x3 Extremities: Normal to inspection and Yes no clubbing, cyanosis or edema [facility] Medical History Generalized anxiety disorder Left knee pain Hip pain, left Frequent falls Anxiety and depression Glaucoma Impaired fasting glucose Hx of migraine headaches Pain of left calf Ocular migraine Hearing loss Mammogram declined Colonoscopy refused Obsessive-compulsive disorder Menopause Dyslipidemia Acquired hypothyroidism Surgical History No pertinent past surgical history Family History Father Substance use disorder Brother Substance use disorder Brother Substance use disorder Social History Household Members: None Housing: Other Housing Other:: independent living (in own apartment) Do you presently have visiting nurse or other home services: No Alcohol intake: never Patient Tobacco Use Status: Never used Tobacco e-Cigarette/Vaping Use: Never Used Advance Directives Date on File: 06/17/22 service: No Current occupational status: retired Cognitive needs: No Hearing needs: Yes Vision needs: Yes Physical Exam Vital Signs: Last Vital Signs Temp 98.4 F 12/13/24 10:10 Pulse 67 12/13/24 10:10 BP 110/70 12/13/24 10:10 Pulse Ox 96 12/13/24 10:10 Oxygen Delivery Method Room Air 12/13/24 10:10 BMI result Body Mass Index 25.7 Assessment & Plan Assessment & Plan (1) URI, acute: Code(s): J06.9 - Acute upper respiratory infection, unspecified Plan: Given the persistence of chest congestion and suspecting a bacterial etiology, I will prescribe Augmentin to address both respiratory and sinus-related symptoms. The patient is advised to take the medication with meals to prevent gastric upset. Despite testing negative for COVID-19, monitoring of symptoms will continue, with supportive care including hydration. Tesselon Perles were offered but pt declined. Rest and hydration encouraged. Patient was informed and verbally consented to the use of an ambient scribe for clinic note documentation during this visit Medications: New amoxicillin-pot clavulanate 875-125 mg 1 tab PO Q12H 14 tabs 0RF Coding Level of Care Code Est Pt Level 3 (45078) Diagnoses URI, acute J06.9
[2024-12-13 10:10] VITALS: BP 110/70; PULSE 67; TEMP 36.9; O2SAT 96; BMI 25.7
== END 2024-12-13 10:51 | disposition home or self-care (01) ==
PROVIDERS: PCP Internal Medicine; Visit Provider Physician Assistant
DX: J06.9 Acute upper respiratory infection, unspecified (principal)

== ENCOUNTER → 2024-12-13 09:18 | Outpatient (BNVA) | payer MEDICARE, MEDICAID, SELFPAY | PROVIDERS: PCP Internal Medicine; Visit Provider Physician Assistant | DX: J06.9 Acute upper respiratory infection, unspecified (principal) | CPT/HCPCS: 99212 ==

== ENCOUNTER 2025-01-30 10:21 | Outpatient (AMB) | payer MEDICARE, MEDICAID, SELFPAY ==
--- NOTE | 2025-01-30 10:26 | AM.OFFWIN_ITS ---
Intake Vital Signs 01/30/25 10:27 Height 5 ft 3 in Weight 145 lb BMI 25.7 BP 110/68 Blood Pressure Location Rt brachial Position Sitting Pulse 60 Pulse Source Pulse Oximeter Pulse Oximetry (%) 98 Oxygen Delivery Method Room Air Intake Visit Reasons: EP LT shoulder injury (No WC) Intake Note: Patient here for left shoulder pain after a injury over 2 months ago. Patient Tobacco Use Status: Never used Tobacco Allergies No Known Allergies Allergy (Verified 01/30/25 10:28) Medication List - Last Reconciled 01/30/25 by Brian Bearden MD acetaminophen (Tylenol Extra Strength) 500 mg PO Q6H PRN atorvastatin 20 mg PO BEDTIME cholecalciferol (vitamin D3) (Vitamin D3) 25 mcg PO DAILY diphenhydramine HCl (Benadryl) 25 mg PO BEDTIME PRN fluoxetine 80 mg (2 x 40 mg) PO DAILY levothyroxine 88 mcg PO DAILY@0630 timolol maleate 0.5% 1 drp ophthalmic (eye) DAILY Do you need a note to return to daycare/school/sports/work: No HPI EP LT shoulder injury (No WC) HPI Details History - The patient is an 84-year-old female p resenting with pain in the left shoulder. - Approximately two months ago, she expe rienced the onset of pain following an attempt to fasten a seatbelt, suspecting a muscle pull. - The pain has progressively worsened, d escribed as severe, unrelieved by Tylenol and heat. - No prior imaging studies have been per formed on the shoulder. - The patient avoided NSAIDs due to conc erns about interactions with her medication, fluoxetine, informed she could safely use ibuprofen. - The pain is localized to both the ante rior and posterior regions of the shoulder, with the patient expressing concern over restricted mobility. - She has not previously sought speciali st consultation or engaged in physical therapy. Problem List - Left Shoulder Pain - Possible Cartilage Injury Patient Instructions - Begin taking ibuprofen with food, at l east twice daily to help manage pain and inflammation. - Complete the x-ray of the left shoulde r as scheduled. - Monitor pain levels and mobility, part icularly if it continues to worsen or becomes unmanageable. - Consider the possibility of consulting with an sports medicine specialist or attending physical therapy sessions if symptoms persist, both of which may help restore shoulder function and alleviate pain. However patient declined both She will get back just in case if she change her mind Review of Systems - General: No fever no chills - Neurological: No headaches no dizziness - Cardiovascular: No syncope, no chest pain, no palpitations - Gastrointestinal: No nausea vomiting or diarrhea Physical Exam General: No acute distress HEENT: No acute findings Neck: Supple Respiratory system: Able to talk in full sentences, no audible wheeze Gastrointestinal: No pain Extremities: Pain in the left shoulder, mostly anteriorly with palpation, limited range of motion to 30 degrees extension, no deformity noted, no skin findings ANIMAL HUSBANDRY TECHNICIAN: Alert awake oriented x3 motor sensory intact Skin: Normal turgor PFSH Medical History Generalized anxiety disorder Left knee pain Hip pain, left Frequent falls Anxiety and depression Glaucoma Impaired fasting glucose Hx of migraine headaches Pain of left calf Ocular migraine Hearing loss Mammogram declined Colonoscopy refused Obsessive-compulsive disorder Menopause Dyslipidemia Acquired hypothyroidism Surgical History No pertinent past surgical history Family History Father Substance use disorder Brother Substance use disorder Brother Substance use disorder Social History Household Members: None Housing: Other Housing Other:: independent living (in own apartment) Do you presently have visiting nurse or other home services: No Alcohol intake: never Patient Tobacco Use Status: Never used Tobacco e-Cigarette/Vaping Use: Never Used Advance Directives Date on File: 06/17/22 service: No Current occupational status: retired Cognitive needs: No Hearing needs: Yes Vision needs: Yes Physical Exam Vital Signs: Last Vital Signs Pulse 60 01/30/25 10:27 BP 110/68 01/30/25 10:27 Pulse Ox 98 01/30/25 10:27 Oxygen Delivery Method Room Air 01/30/25 10:27 BMI result Body Mass Index 25.7 Assessment & Plan Assessment & Plan (1) Shoulder pain, right: Code(s): M25.511 - Pain in right shoulder Qualifiers: Chronicity: acute Qualified Code(s): M25.511 - Pain in right shoulder (2) Limitation of joint motion of shoulder: Code(s): M25.619 - Stiffness of unspecified shoulder, not elsewhere classified Qualifiers: Laterality: left Qualified Code(s): M25.612 - Stiffness of left shoulder, not elsewhere classified Plan History - The patient is an 84-year-old female presenting with pain in the left shoulder. - Approximately two months ago, she experienced the onset of pain following an attempt to fasten a seatbelt, suspecting a muscle pull. - The pain has progressively worsened, described as severe, unrelieved by Tylenol and heat. - No prior imaging studies have been performed on the shoulder. - The patient avoided NSAIDs due to concerns about interactions with her medication, fluoxetine, informed she could safely use ibuprofen. - The pain is localized to both the anterior and posterior regions of the shoulder, with the patient expressing concern over restricted mobility. - She has not previously sought specialist consultation or engaged in physical therapy. Problem List - Left Shoulder Pain - Possible Cartilage Injury Patient Instructions - Begin taking ibuprofen with food, at least twice daily to help manage pain and inflammation. - Complete the x-ray of the left shoulder as scheduled. - Monitor pain levels and mobility, particularly if it continues to worsen or becomes unmanageable. - Consider the possibility of consulting with an sports medicine specialist or attending physical therapy sessions if symptoms persist, both of which may help restore shoulder function and alleviate pain. However patient declined both She will get back just in case if she change her mind Orders: Orders XR shoulder RT min 2V Today M25.511 - Pain in right shoulder Coding Level of Care Code Est Pt Level 3 (22207) Diagnoses Acute pain of right shoulder M25.511 Chronicity: acute Limitation of joint motion of left shoulder M25.612 Laterality: left
[2025-01-30 10:27] VITALS: BP 110/68; PULSE 60; O2SAT 98; BMI 25.7
== END 2025-01-30 10:59 | disposition home or self-care (01) ==
PROVIDERS: PCP Internal Medicine; Visit Provider Internal Medicine
DX: M25.511 Pain in right shoulder (principal); M25.612 Stiffness of left shoulder, not elsewhere classified

== ENCOUNTER 2025-01-30 10:21 | Outpatient (REF) | payer MEDICARE, MEDICAID, SELFPAY ==
--- NOTE | ~2025-01-30 | XR_ITS ---
EXAMINATION: XR SHOULDER 2 OR MORE VIEWS LEFT HISTORY: M25.511 - Pain in left shoulder COMPARISON: There are no prior studies available for comparison. FINDINGS: Four views of the left shoulder are submitted. Osseous mineralization is normal. There is a probable old healed fracture deformity of the distal clavicle. There is no acute fracture or dislocation. There is mild narrowing of the glenohumeral joint. There is mild osteoarthritis of the AC joint. The soft tissues are unremarkable. XR/XR shoulder LT min 2V IMPRESSION: Mild degenerative changes. Electronically signed by: Jeff Barroso MD 02/01/2025 03:01 PM JENNIFER PALMER
== END 2025-01-30 10:22 | disposition home or self-care (01) ==
LOC: HO.HMGCX 10:21
PROVIDERS: PCP Internal Medicine; Visit Provider Internal Medicine
DX: M25.511 Pain in right shoulder (principal); M25.612 Stiffness of left shoulder, not elsewhere classified
CPT/HCPCS: 73030; 99212

== ENCOUNTER → 2025-01-30 11:03 | Outpatient (BNV) | payer MEDICARE, MEDICAID, SELFPAY | PROVIDERS: PCP Internal Medicine; Visit Provider Radiology Diagnostic Radiology | DX: M25.512 Pain in left shoulder (principal) | CPT/HCPCS: 73030 ==

== ENCOUNTER 2025-01-31 13:50 | Outpatient (REF) | payer MEDICARE, MEDICAID, SELFPAY | END 2025-01-31 13:51 | disposition home or self-care (01) | LOC: HO.HAP 13:50 | PROVIDERS: Visit Provider Internal Medicine | DX: Z13.89 Encounter for screening for other disorder (principal) ==

== ENCOUNTER 2025-02-11 11:26 | Outpatient (AMB) | payer MEDICARE, MEDICAID, SELFPAY ==
--- NOTE | 2025-02-11 11:47 | AM.OFFWIN_ITS ---
Intake Vital Signs 02/11/25 11:50 Weight 148 lb BP 120/70 Blood Pressure Location Rt brachial Position Sitting Pulse 68 Pulse Source Pulse Oximeter Pulse Oximetry (%) 98 Oxygen Delivery Method Room Air Intake Visit Reasons: EP-lt shoulder pain Intake Note: Patient here for left shoulder and arm pain that has been present for a couple of weeks now. Patient Tobacco Use Status: Never used Tobacco Allergies No Known Allergies Allergy (Verified 02/11/25 11:50) Do you need a note to return to daycare/school/sports/work: No HPI HPI Comments History of Present Illness Details History of Present Illness The patient is an 84-year-old female presenting with shoulder pain, again. - Came to [facility] on 01/30, x-ray showed no fractures or dislocation, declined PT and Ortho referral at that time. - Initial management with Aleve and self -directed exercises was ineffective, leading to increased discomfort. - Sharp anterior shoulder pain worsens w ith certain movements. - Pain radiation is present to the elbow and hand. - Patient is left handed. - The condition affects daily activities and is concerned she will lose ability to move her hand due to the pain. - The patient noted the possibility of a rthritis involvement, with an emphasis on the need to preserve arm functionality. Physical Exam General: Cooperative, healthy appearing, comfortable, no acute distress and well developed Orientation: Patient oriented x3 Limitations: Limitations noted in left shoulder movement Head: Normal to inspection Ears: Hearing grossly normal bilaterally Nose: Normal external nose present Face and sinus: Normal facial exam Eyes: Appearance normal, both eyes and all related structures Neck: Normal visual inspection and Yes full ROM Respiratory: Normal respiratory effort and able to speak in complete sentences. Skin: No rashes or lesions noted Neuro: Patient oriented x3 Extremities: as below [facility] Medical History Generalized anxiety disorder Left knee pain Hip pain, left Frequent falls Anxiety and depression Glaucoma Impaired fasting glucose Hx of migraine headaches Pain of left calf Ocular migraine Hearing loss Mammogram declined Colonoscopy refused Obsessive-compulsive disorder Menopause Dyslipidemia Acquired hypothyroidism Surgical History No pertinent past surgical history Family History Father Substance use disorder Brother Substance use disorder Brother Substance use disorder Social History Household Members: None Housing: Other Housing Other:: independent living (in own apartment) Do you presently have visiting nurse or other home services: No Alcohol intake: never Patient Tobacco Use Status: Never used Tobacco e-Cigarette/Vaping Use: Never Used Advance Directives Date on File: 06/17/22 service: No Current occupational status: retired Cognitive needs: No Hearing needs: Yes Vision needs: Yes Review of Systems Const All systems reviewed & are unremarkable except as noted in HPI and below Physical Exam Vital Signs: Last Vital Signs Pulse 68 02/11/25 11:50 BP 120/70 02/11/25 11:50 Pulse Ox 98 02/11/25 11:50 Oxygen Delivery Method Room Air 02/11/25 11:50 Extrem Left upper extremity: normal to inspection and shoulder/upper arm Details: tenderness Location: of the proximal humerus (lateral) and abnormal ROM (+ empty can) Details: pain with active ROM Details: in ABduction, in flexion and in internal rotation; no swelling, no lacerations, no ecchymosis, no deformity and no unsual warmth Assessment & Plan Assessment & Plan (1) Limitation of joint motion of shoulder: Code(s): M25.619 - Stiffness of unspecified shoulder, not elsewhere classified Qualifiers: Laterality: left Qualified Code(s): M25.612 - Stiffness of left shoulder, not elsewhere classified Plan: Referral to orthopedics was made to assess the underlying cause of shoulder pain, specifically considering rotator cuff pathology. The patient was advised not to continue home exercises until a formal evaluation to prevent potential exacerbation of the condition. Can continue Aleve, ice and rest. Temporary immobilization by using a sling could be beneficial for symptom relief pending a specialist review however pt declined a sling. Arrangements were made for the patient to be contacted by the orthopedic office, but a proactive follow-up call was recommended if no appointment is scheduled in a suitable timeframe. Patient was informed and verbally consented to the use of an ambient scribe for clinic note documentation during this visit. (2) Shoulder pain, right: Code(s): M25.511 - Pain in right shoulder Qualifiers: Chronicity: acute Qualified Code(s): M25.511 - Pain in right shoulder Plan: as above Orders: Referrals Orthopedics Referral M25.511 - Pain in right shoulder, M25.612 - Stiffness of left shoulder, not elsewhere classified Coding Level of Care Code Est Pt Level 3 (77230) Diagnoses Limitation of joint motion of left shoulder M25.612 Laterality: left Acute pain of right shoulder M25.511 Chronicity: acute
[2025-02-11 11:50] VITALS: BP 120/70; PULSE 68; O2SAT 98
== END 2025-02-11 12:26 | disposition home or self-care (01) ==
PROVIDERS: PCP Internal Medicine; Visit Provider Physician Assistant
DX: M25.612 Stiffness of left shoulder, not elsewhere classified (principal); M25.511 Pain in right shoulder

== ENCOUNTER → 2025-02-11 11:26 | Outpatient (BNVA) | payer MEDICARE, MEDICAID, SELFPAY | PROVIDERS: PCP Internal Medicine; Visit Provider Physician Assistant | DX: M25.612 Stiffness of left shoulder, not elsewhere classified (principal); M25.511 Pain in right shoulder | CPT/HCPCS: 99212 ==

== ENCOUNTER 2025-03-06 08:09 | Outpatient (AMB) | payer MEDICARE, MEDICAID, SELFPAY ==
--- NOTE | 2025-03-06 08:30 | A.OFFVIS_ITS ---
Vital Signs 03/06/25 08:34 Height 5 ft 3 in Weight 148 lb BMI 26.2 Intake Visit Reasons: ELEMENTARY PRINCIPAL- Left shoulder pain Intake Note: Estefani is an 84 year old female who presents today for a new patient evaluation of left shoulder pain. Patient was seen at [facility] walk in clinic on 01/30/25 for left shoulder pain after fastening her seat belt in October. She was given at home exercises. She returned on 02/11/25 for increased discomfort, she was instructed to d/c exercises and referred to orthopedics. Currently her pain presents with movement of her arm. Her pain is located in her shoulder and at times travels down her arm. Limited ROM however she has had improvement. Denies numbness or tingling. No other tx. Allergies No Known Allergies Allergy (Verified 03/06/25 08:33) Medication List - Last Reconciled 03/06/25 by Lauren Anderson PA-C acetaminophen (Tylenol Extra Strength) 500 mg PO Q6H PRN atorvastatin 20 mg PO BEDTIME cholecalciferol (vitamin D3) (Vitamin D3) 25 mcg PO DAILY diphenhydramine HCl (Benadryl) 25 mg PO BEDTIME PRN fluoxetine 80 mg (2 x 40 mg) PO DAILY levothyroxine 88 mcg PO DAILY@0630 timolol maleate 0.5% 1 drp ophthalmic (eye) DAILY HPI HPI ELEMENTARY PRINCIPAL- Left shoulder pain: Details: The patient is an 84-year-old female presenting with left shoulder pain that began at the end of October after a seatbelt-related incident. She was seen at the walk-in clinic on 01/30/2025 where imaging was done. The pain is aggravated by movements such as reaching behind or extending the arm laterally. The patient avoids using her left arm for lifting, requiring her right arm for tasks such as carrying heavy objects. Sleep is generally unaffected once settled. [facility] Medical History Generalized anxiety disorder Left knee pain Hip pain, left Frequent falls Anxiety and depression Glaucoma Impaired fasting glucose Hx of migraine headaches Pain of left calf Ocular migraine Hearing loss Mammogram declined Colonoscopy refused Obsessive-compulsive disorder Menopause Dyslipidemia Acquired hypothyroidism Surgical History No pertinent past surgical history Family History Father Substance use disorder Brother Substance use disorder Brother Substance use disorder Social History Household Members: None Housing: Other Housing Other:: independent living (in own apartment) Do you presently have visiting nurse or other home services: No Alcohol intake: never Patient Tobacco Use Status: Never used Tobacco e-Cigarette/Vaping Use: Never Used Advance Directives Date on File: 06/17/22 service: No Current occupational status: retired Cognitive needs: No Hearing needs: Yes Vision needs: Yes Review of Systems Const All systems reviewed & are unremarkable except as noted in HPI and below Physical Exam Vital Signs: BMI result Body Mass Index 26.2 Extrem Other: Left shoulder full range of motion. She has mild tenderness over the AC joint. Positive cross-body abduction. She has good strength with rotator cuff testing however mild discomfort. Results Reviewed Results Reviewed: X-rays of the left shoulder obtained on January 30 are significant for downsloping acromion with mild AC joint arthritis. Assessment & Plan Assessment & Plan (1) Tendonitis of left rotator cuff: Code(s): M75.82 - Other shoulder lesions, left shoulder Category: Medical (2) Acromioclavicular joint arthritis: Code(s): M19.019 - Primary osteoarthritis, unspecified shoulder Category: Medical Plan An order for physical therapy was placed to enhance muscle strength and range of motion, aim to alleviate ongoing irritation due to the acromial slope and mild osteoarthritis. Recommend NSAIDs for pain management as needed. Should symptoms fail to improve after six to eight weeks, a corticosteroid injection may be considered. She was also given a handout for home exercises. She will see me back as needed. Orders: Orders PT Evaluation and Treatment Today M19.019 - Primary osteoarthritis, unspecified shoulder, M75.82 - Other shoulder lesions, left shoulder Coding Level of Care Code New Pt Level 3 (52951) Complex EM visit Add On G2211 Diagnoses Tendonitis of left rotator cuff M75.82 Acromioclavicular joint arthritis M19.019
[2025-03-06 08:34] VITALS: BMI 26.2
== END 2025-03-06 08:55 | disposition home or self-care (01) ==
LOC: HO.HOS 08:10
PROVIDERS: PCP Internal Medicine; Visit Provider Physician Assistant
DX: M75.82 Other shoulder lesions, left shoulder (principal); M19.019 Primary osteoarthritis, unspecified shoulder
CPT/HCPCS: 99203; G2211

== ENCOUNTER → 2025-03-06 08:09 | Outpatient (BNVA) | payer MEDICARE, MEDICAID, SELFPAY | PROVIDERS: PCP Internal Medicine; Visit Provider Physician Assistant | DX: M75.82 Other shoulder lesions, left shoulder (principal); M19.012 Primary osteoarthritis, left shoulder | CPT/HCPCS: 99202 ==

== ENCOUNTER 2025-04-18 11:00 | Outpatient (RCR) | payer MEDICARE, MEDICAID, SELFPAY ==
--- NOTE | 2025-04-02 13:55 | MHC.PT.EP ---
[facility] [place] Office [place] Office [place] Office [address] Skylar Kumar [address] [phone] F: [phone] F: [phone] F: [phone] F: [phone] Physical Therapy Plan of Care Date of Evaluation: 04/02/25 Date of Surgery: N/A Diagnosis: tendonitis of left rotator cuff (RL) Assessment: pt is a 84 y/o female presenting to physical therapy w/ referring diagnosis of tendonitis of left rotator cuff. Impairments include pain, decreased range of motion, decreased strength, impaired functional mobility, impaired postural awareness, and altered ambulation mechanics. pt is a good candidate for skilled PT due to age, potential remediation of impairments, typical disease/condition progression and prognosis, comorbidities, and motivation. pt would benefit from skilled PT intervention to provide a tailored strengthening and stretching exercise program, functional training, gait training, postural re-training, neuromuscular re-education, modalities as needed for pain, equipment safety demonstration. Frequency and Duration: The patient will be seen 2x/wk for 4 wks Short Term Goals: pt will be I w/ HEP to promote self-management of condition. pt will improve L shoulder flexion by at least 10* to promote ease in overhead reaching. Prison Goals: pt will report <3/10 L shoulder pain w/ carrying 8# object by her side to promote return to carrying groceries. pt will report a statistically significant improvement in self-reported outcome measure, SPADI, to promote return to PLOF. Treatment Plan: Modalities to reduce pain, spasms and effusion. Manual therapy to restore motion and function. Therapeutic exercise to improve strength and flexibility. Neuromuscular re-education for posture and balance. Therapeutic activities to return to functional activities of daily living. Electronically signed by: Aparna Piña PT, DPT Please sign and return to therapist. Thank you for your referral.
--- NOTE | 2025-05-16 15:08 | MHC.PT.EP ---
[facility] [place] Office [place] Office [place] Office [address] Skylar Kumar [address] [phone] F: [phone] F: [phone] F: [phone] F: [phone] Physical Therapy Plan of Care Date of Evaluation: 04/02/25 Date of Surgery: N/A Diagnosis: tendonitis of left rotator cuff (RL) Assessment: pt is a 84 y/o female presenting to physical therapy w/ referring diagnosis of tendonitis of left rotator cuff. Impairments include pain, decreased range of motion, decreased strength, impaired functional mobility, impaired postural awareness, and altered ambulation mechanics. pt is a good candidate for skilled PT due to age, potential remediation of impairments, typical disease/condition progression and prognosis, comorbidities, and motivation. pt would benefit from skilled PT intervention to provide a tailored strengthening and stretching exercise program, functional training, gait training, postural re-training, neuromuscular re-education, modalities as needed for pain, equipment safety demonstration. Frequency and Duration: The patient will be seen 2x/wk for 4 wks Short Term Goals: pt will be I w/ HEP to promote self-management of condition. pt will improve L shoulder flexion by at least 10* to promote ease in overhead reaching. Halfway Goals: pt will report <3/10 L shoulder pain w/ carrying 8# object by her side to promote return to carrying groceries. pt will report a statistically significant improvement in self-reported outcome measure, SPADI, to promote return to PLOF. Treatment Plan: Modalities to reduce pain, spasms and effusion. Manual therapy to restore motion and function. Therapeutic exercise to improve strength and flexibility. Neuromuscular re-education for posture and balance. Therapeutic activities to return to functional activities of daily living. Electronically signed by: Aparna Piña PT, DPT Please sign and return to therapist. Thank you for your referral.
== END 2025-05-16 15:09 | disposition home or self-care (01) ==
LOC: HO.PT 11:00
PROVIDERS: PCP Internal Medicine; Visit Provider Physician Assistant
DX: M75.82 Other shoulder lesions, left shoulder (principal); M19.019 Primary osteoarthritis, unspecified shoulder
CPT/HCPCS: 97110; 97140; 97162

== ENCOUNTER → 2025-05-09 09:29 | Outpatient (BNV) | payer MEDICARE, MEDICAID, SELFPAY | PROVIDERS: PCP Internal Medicine; Visit Provider Radiology Diagnostic Radiology | DX: M75.122 Complete rotator cuff tear or rupture of left shoulder, not specified as traumatic (principal); M19.012 Primary osteoarthritis, left shoulder | CPT/HCPCS: 73221 ==

== ENCOUNTER 2025-05-09 09:50 | Outpatient (REF) | payer MEDICARE, MEDICAID, SELFPAY ==
--- NOTE | ~2025-05-09 | MR_ITS ---
EXAMINATION: MR SHOULDER WITHOUT CONTRAST, LEFT CLINICAL INFORMATION: Rotator cuff injury COMPARISON: X-ray April 01, 2022 FINDINGS: Rotator Cuff: There is a full-thickness tear of supraspinatus and anterior infraspinatus tendon with 2 cm retraction. Additionally, there is intrasubstance delamination of more inferior fibers of infraspinatus tendon extending 3 cm medially from the footprint, possibly extending into teres minor. There is an undersurface tear of subscapularis tendon involving at least half of the tendon thickness. Labrum: Labrum is minimally frayed but grossly intact. Long biceps tendon: The long biceps tendon is thickened and irregular. It is medially subluxed in the upper biceps groove. Acromioclavicular joint: AC joint is irregular and hypertrophy from degenerative change. Acromial morphology is flat, type I. There is a subacromial spur. Axillary pouch: Axillary pouch is mildly thickened with increased abdominal imaging sequences. Articular cartilage: Motion artifacts mildly limits evaluation of the articular cartilage. Likely there is diffuse thinning of glenoid and humeral articular cartilage. Bones/Marrow: Small marginal osteophytes are present involving humeral head and glenoid. Soft tissues: There is moderate atrophy and mild fatty streaking of infraspinatus, super spinatus, and subscapularis muscles. MR/MR shoulder LT wo con IMPRESSION: There is a full-thickness tear of supraspinatus tendon extending into anterior infraspinatus tendon with 2 cm tendon retraction. Additionally, there is a delamination tear extending medially 3 cm into the more inferior still intact portion of infraspinatus tendon. Delamination extending into superior teres minor tendon. There is a deep undersurface tear of subscapularis tendon with associated long biceps tendon instability. The long biceps tendon is degenerated and partially torn and medially subluxed from biceps groove. There is moderate atrophy and mild fatty streaking of supraspinous, infraspinatus, and subscapularis muscles. Possible adhesive capsulitis: Axillary pouch is thickened with increased intrinsic signal which can be present in asymptomatic individuals but is also present in those with adhesive capsulitis. Moderate AC joint arthropathy and subacromial spur and mild glenohumeral joint arthropathy. Electronically signed by: Александр Hernandez MD 05/09/2025 11:40 AM EDT
== END 2025-05-09 09:51 | disposition home or self-care (01) ==
LOC: HO.MRI 09:50
PROVIDERS: PCP Internal Medicine; Visit Provider Physician Assistant
DX: S46.002D Unspecified injury of muscle(s) and tendon(s) of the rotator cuff of left shoulder, subsequent encounter (principal)
CPT/HCPCS: 73221

== ENCOUNTER 2025-05-29 11:05 | Outpatient (AMB) | payer MEDICARE, MEDICAID, SELFPAY ==
--- NOTE | 2025-05-29 11:09 | MHC.OFFVIS ---
Vital Signs 05/29/25 11:10 Height 5 ft 3 in Weight 148 lb BMI 26.2 Intake Visit Reasons: OV- LT shoulder MRI review Intake Note: Estefani is an 84 year old female who presents today for an MRI review of left shoulder. Patient reports having a lot of pain and discomfort in her shoulder, affecting her AODL. Allergies No Known Allergies Allergy (Verified 05/29/25 11:10) HPI HPI OV- LT shoulder MRI review: Details: 84-year-old female returns to the office today for a follow-up left shoulder MRI. She continues to have intermittent discomfort with activities of the left upper extremity given this is her dominant arm. [facility] Medical History Generalized anxiety disorder Left knee pain Hip pain, left Frequent falls Anxiety and depression Glaucoma Impaired fasting glucose Hx of migraine headaches Pain of left calf Ocular migraine Hearing loss Mammogram declined Colonoscopy refused Obsessive-compulsive disorder Menopause Dyslipidemia Acquired hypothyroidism Surgical History No pertinent past surgical history Family History Father Substance use disorder Brother Substance use disorder Brother Substance use disorder Social History Household Members: None Housing: Other Housing Other:: independent living (in own apartment) Do you presently have visiting nurse or other home services: No Alcohol intake: never Patient Tobacco Use Status: Never used Tobacco e-Cigarette/Vaping Use: Never Used Advance Directives Date on File: 06/17/22 service: No Current occupational status: retired Cognitive needs: No Hearing needs: Yes Vision needs: Yes Review of Systems Const All systems reviewed & are unremarkable except as noted in HPI and below Physical Exam Vital Signs: BMI result Body Mass Index 26.2 Const General: cooperative and no acute distress Orientation/consciousness: patient oriented x3 Resp Effort & Inspection: normal respiratory effort and able to speak in complete sentences Cardio Peripheral pulses: Peripheral pulses 2+ throughout Neuro General: patient oriented x3 Extrem Other: Patient is able to demonstrate close to full range of motion of the left shoulder. Results Reviewed Results Reviewed: MR shoulder LT wo con IMPRESSION: There is a full-thickness tear of supraspinatus tendon extending into anterior infraspinatus tendon with 2 cm tendon retraction. Additionally, there is a delamination tear extending medially 3 cm into the more inferior still intact portion of infraspinatus tendon. Delamination extending into superior teres minor tendon. There is a deep undersurface tear of subscapularis tendon with associated long biceps tendon instability. The long biceps tendon is degenerated and partially torn and medially subluxed from biceps groove. There is moderate atrophy and mild fatty streaking of supraspinous, infraspinatus, and subscapularis muscles. Possible adhesive capsulitis: Axillary pouch is thickened with increased intrinsic signal which can be present in asymptomatic individuals but is also present in those with adhesive capsulitis. Moderate AC joint arthropathy and subacromial spur and mild glenohumeral joint arthropathy. Assessment & Plan Assessment & Plan (1) Rotator cuff tear arthropathy of left shoulder: Code(s): M75.102 - Unspecified rotator cuff tear or rupture of left shoulder, not specified as traumatic; M12.812 - Other specific arthropathies, not elsewhere classified, left shoulder Category: Medical Plan: Extent of the MRI findings was discussed with the patient along with options available. Given the ability to perform full range of motion of the affected shoulder she would not benefit from a shoulder arthroplasty as this would limit her motion. She is able to manage her discomfort with modification of activity and occasional anti-inflammatories. I did offer her a cortisone injection which she declined. She does have some home exercises she will work on for motion and scap stabilization. If she changes her mind about the cortisone injection she can contact our office otherwise she will follow up as needed. Coding Level of Care Code Est Pt Level 3 (45113) Complex EM visit Add On G2211 Diagnoses Rotator cuff tear arthropathy of left shoulder M75.102; M12.812
[2025-05-29 11:10] VITALS: BMI 26.2
--- OUTSIDE RECORDS SUMMARY | 2025-05-29 11:50 | XMS_ITS | Patient Health Record ---
Author Organization [facility] Address [address] [place] [address] Care Team Providers Care Neck Pinner Name Role Phone Jennifer Augustin NP Primary Care Provider U Jeff Boothe Unavailable [phone] Allergies Allergen (clinical drug ingredient) Drug/Non Drug Allergy documented on EMR Reaction Allergy Type Onset Date Status Streptococcus pneumoniae type 1 capsular polysaccharide antigen / Streptococcus pneumoniae type 10A capsular polysaccharide antigen / Streptococcus pneumoniae type 11A capsular polysaccharide antigen / Streptococcus pneumoniae type 12F capsular polysaccharide antigen / Streptococcus pneumoniae type 14 capsular polysaccharide antigen / Streptococcus pneumoniae type 15B capsular polysaccharide antigen / Streptococcus pneumoniae type 17F capsular polysaccharide antigen / Streptococcus pneumoniae type 18C capsular polysaccharide antigen / Streptococcus pneumoniae type 19A capsular polysaccharide antigen / Streptococcus pneumoniae type 19F capsular polysaccharide antigen / Streptococcus pneumoniae type 2 capsular polysaccharide antigen / Streptococcus pneumoniae type 20 capsular polysaccharide antigen / Streptococcus pneumoniae type 22F capsular polysaccharide antigen / Streptococcus pneumoniae type 23F capsular polysaccharide antigen / Streptococcus pneumoniae type 3 capsular polysaccharide antigen / Streptococcus pneumoniae type 33F capsular polysaccharide antigen / Streptococcus pneumoniae type 4 capsular polysaccharide antigen / Streptococcus pneumoniae type 5 capsular polysaccharide antigen / Streptococcus pneumoniae type 6B capsular polysaccharide antigen / Streptococcus pneumoniae type 7F capsular polysaccharide antigen / Streptococcus pneumoniae type 8 capsular polysaccharide antigen / Streptococcus pneumoniae type 9N capsular polysaccharide antigen / Streptococcus pneumoniae type 9V capsular polysaccharide antigen Pneumovax 23 cellulites Drug Allergy Activ e Reason For Referral No Information Medications Medication SIG (Take, Route, Frequency, Duration) Notes Start Date End Date Status Aspir-81 81 MG 1 tablet Orally Once a day Active Tylenol 325 MG 1 tablet as needed Orally every 6 hrs Active Colyte w Flavor Packs 240 GM as directed Orally as directed for 1 day(s) 01/05/2015 Active FLUoxetine HCl Activ e Levothyroxine Sodium Active Atorvastatin Calcium Active Timolol Maleate Acti ve Benadryl Active Problems Problem Type SNOMED Code ICD Code Onset Dates Problem Status W/U Status Risk Notes Problem Colon cancer screening (872837692) Colon cancer screening (V76.51) Active confirmed Problem History of adenomatous polyp of colon (648643954) History of adenomatous polyp of colon (V12.72) Active confirmed Problem Long-term use of aspirin therapy (V58.66) Active confirmed Plan Of Treatment Future Test Test Name Order Date COLONOSCOPY 01/01/2015 Insurance Providers Payer Name Payer Address Payer Phone Subscriber Number Group Number Insured Name Patient Relationship to Insured Coverage Start Date Coverage End Date MEDICARE OF [place] [address] [place] [address] [id number] EJNARO TIWARI Self - patient is the insured [employer] [address] [place] [id number] JENARO TIWARI Self - patient is the insured Medical (General) History Medical History History ICD Code Screening colonoscopy 18-2 006-1 small tubular adenoma removed, sigmoid diverticulosis, internal hemorrhoids Hypothyroidism hyperlipidemia obsessive compulsive disorder Denies IL,DM,CVA,Lung disease,renal dise ase Negative cardiac cath in 08/2014 Surgical History Surgery Date(Month/Year) Pilonidal cyst removal Left carpal tunnel
== END 2025-05-29 12:05 | disposition home or self-care (01) ==
LOC: HO.HOS 11:06
PROVIDERS: PCP Internal Medicine; Visit Provider Physician Assistant
DX: M75.102 Unspecified rotator cuff tear or rupture of left shoulder, not specified as traumatic (principal); M12.812 Other specific arthropathies, not elsewhere classified, left shoulder
CPT/HCPCS: 99213; G2211

== ENCOUNTER → 2025-05-29 11:05 | Outpatient (BNVA) | payer MEDICARE, MEDICAID, SELFPAY | PROVIDERS: PCP Internal Medicine; Visit Provider Physician Assistant | DX: M12.812 Other specific arthropathies, not elsewhere classified, left shoulder (principal); M75.102 Unspecified rotator cuff tear or rupture of left shoulder, not specified as traumatic | CPT/HCPCS: 99212 ==

== ENCOUNTER 2025-06-19 00:59 | Emergency (ER) | payer MEDICARE, MEDICAID, SELFPAY ==
--- NOTE | ~2025-06-19 | CT_ITS ---
CLINICAL HISTORY: fall with head strike CT Head WO Contrast COMPARISON: Portions of CT/SR - CT HEAD NECK ANGIOGRAPHY WITH IV CONTRAST STROKE - 12/28/22 13:51 EST FINDINGS: No acute intracranial hemorrhage. No evidence of acute infarction. Diffuse cortical volume loss. Nonspecific white matter hypodensities, most commonly associated with chronic microangiopathic changes. No mass-effect or midline shift. No hydrocephalus. Clear mastoid air cells. No acute calvarial fracture. Unremarkable soft tissues. IMPRESSION: No acute intracranial findings. Nonemergent/incidental findings in the report. See separate CT Maxillofacial report. This document has been electronically signed by: Aki Menezes MD on 06/19/2025 03:55:58
--- NOTE | ~2025-06-19 | CT_ITS ---
CLINICAL HISTORY: fall with head strike CT Cervical Spine WO Contrast COMPARISON: Portions of CT/REG/SR - CT HEAD NECK ANGIOGRAPHY WITH IV CONTRAST STROKE - 12/28/22 13:45 EST FINDINGS: No acute fracture. Degenerative changes in the spine. Chronic grade 1 spondylolistheses. Soft tissues are normal. Scarring at the lung apices. IMPRESSION: No acute findings. Nonemergent/incidental findings above. This document has been electronically signed by: Aki Menezes MD on 06/19/2025 03:50:18
--- NOTE | ~2025-06-19 | CT_ITS ---
CLINICAL HISTORY: fall with head strike CT Maxillofacial WO Contrast COMPARISON: None provided FINDINGS: Mildly displaced left orbital floor fracture. Anterior and posterior left maxillary sinus wall fractures. Temporomandibular joints are intact. The globes and lenses are intact. No intraorbital hematoma or mass. Small fluid in the left maxillary sinus. Soft tissues unremarkable. IMPRESSION: Left orbital floor fracture. Extraocular muscle entrapment should be excluded clinically. Anterior and posterior left maxillary sinus wall fractures. This document has been electronically signed by: Aki Menezes MD on 06/19/2025 03:46:17
[2025-06-19 01:05] VITALS: BP 175/67; PULSE 67; RESP 18; TEMP 36.8; O2SAT 98; BMI 25.2
--- NOTE | 2025-06-19 03:13 | ED_ITS ---
HPI - Fall General Chief Complaint: Fall Stated Complaint: head lac/strike Time Seen by Provider: 06/19/25 02:10 Source: patient Mode of arrival: ambulatory Limitations: no limitations History of Present Illness ED Provider: Osvaldo NIXON HPI Narrative: The patient is an 84-year-old female presenting to the ED by private vehicle reporting tonight while in the bathroom she suffered a mechanical fall from standing position striking her head on the tub resulting in a laceration above her left eye. The patient denies loss of consciousness or use of anticoagulants. The patient denies associated chest pain, shortness of breath, abdominal pain, dizziness, lightheadedness, focal neurologic deficit, headache or other prodrome prior to or following the fall. The patient reports she has b een experiencing recurring issues with pain/weakness in her left knee that causes her knee to give out with subsequent falls. The patient reports she has experienced 3-4 falls in the past month, reports the previous fall resulted in a head strike to the left cheek with subsequent bruising and pain, however the patient did not seek medical evaluation at that time. Related Data Home Medications ?Medication ?Instructions ?Recorded ?Confirmed timolol maleate 0.5 % eye drops 1 drp ophthalmic (eye) DAILY 02/09/21 03/06/25 acetaminophen 500 mg tablet 500 mg PO Q6H PRN Pain (Sc tremaine 02/17/22 03/06/25 (Tylenol Extra Strength) Score 1-3) cholecalciferol (vitamin D3) 25 25 mcg PO DAILY 03/06/25 mcg (1,000 unit) tablet (Vitamin D3) diphenhydramine HCl 25 mg capsule 25 mg PO BEDTIME PRN 07/26/23 03/06/25 (Benadryl) Previous Rx's ?Medication ?Instructions ?Recorded levothyroxine 88 mcg tablet 88 mcg PO DAILY@0630 #90 t abs 02/28/25 atorvastatin 20 mg tablet 20 mg PO BEDTIME #90 tabs fluoxetine 40 mg capsule 80 mg (2 x 40 mg) PO DAILY # 180 04/15/25 caps acetaminophen 500 mg capsule 1,000 mg (2 x 500 mg) PO .q8 PRN 06/19/25 fever or pain #30 caps amoxicillin 875 mg-potassium 1 tab PO BID #20 tabs 07/ 23/25 clavulanate 125 mg tablet ibuprofen 600 mg tablet 600 mg PO Q8H PRN fever or p ain 06/19/25 #30 tabs Allergies Allergy/AdvReac Type Severity Reaction Status Date / Time No Known Allergies Allergy Verified 06/19/25 01:09 Review of Systems Review of Systems: Yes all other systems are reviewed and are negative PMFSH Past Medical History Medical History Generalized anxiety disorder Left knee pain Hip pain, left Frequent falls Anxiety and depression Glaucoma Impaired fasting glucose Hx of migraine headaches Pain of left calf Ocular migraine Hearing loss Mammogram declined Colonoscopy refused Obsessive-compulsive disorder Menopause Dyslipidemia Acquired hypothyroidism Surgical History No pertinent past surgical history Family History Family History Father Substance use disorder Brother Substance use disorder Brother Substance use disorder Social History Social History Household Members: None Housing: Other Housing Other:: independent living (in own apartment) Do you presently have visiting nurse or other home services: No Alcohol intake: never Patient Tobacco Use Status: Never used Tobacco e-Cigarette/Vaping Use: Never Used Advance Directives: Yes Advance Directives on File: Yes Advance Directives Date on File: 03/11/23 service: No Current occupational status: retired Cognitive needs: No Hearing needs: Yes Vision needs: Yes Physical Exam Vital Signs: Vital Signs: Last Vital Signs Temp 98.2 F 06/19/25 01:05 Pulse 67 06/19/25 01:05 Resp 18 06/19/25 01:05 BP 175/67 H 06/19/25 01:05 Pulse Ox 98 06/19/25 01:05 O2 Del Method Room Air 06/19/25 01:05 BMI result Body Mass Index 25.2 CONSTITUTIONAL: The patient appears non-toxic, well nourished and in no acute distress. Vital signs as documented. HEAD: There is a linear, well-approximated 1 cm laceration noted immediately superior to the left lateral eyebrow, no gaping, bleeding controlled. There is also aging ecchymosis of the left orbit including the inferior orbital rim with moderate overlying tenderness without associated crepitus. The head is otherwisea traumatic, normocephalic. EYES: EOMs intact and non-painful, pupils equal round and reactive to light, conjunctiva clear, no exudate. ENT: Nares patent, no discharge. Airway patent, no audible stridor, visible mucosa is pink and moist without noted lesions. NECK: Trachea is midline, no obvious masses or gross abnormalities. CHEST: Symmetric movement, normal appearance. LUNGS: LS present and CTAB, no w/r/r. Non-labored work of breathing. CARDIAC: Regular Rhythm, S1/S2 appreciated, no murmurs, rubs or gallops. ABDOMEN: Abdomen soft and non-tender x4 quadrants, no palpable masses or organomegaly. : Deferred. EXTREMITIES: Normal tone, moves all extremities spontaneously without reported pain. No obvious acute injury or deformity noted. NEURO: Alert and oriented x3, CN II-XII appear grossly intact. Cerebellar Functioning grossly intact. No obvious sensory or motor deficits. Speech clear and appropriate. PSYCH: normal affect, appropriate eye contact, fluid speech, with appropriate response to questioning. No reported suicidality or homicidality. SKIN: Warm, dry, color appropriate, normal turgor. No rashes noted. Procedures Laceration Laceration 1: Site: face Side (If applicable): left Size (cm): 1 Description: linear and clean Depth: simple, single layer Pre-repair: wound explored Technique: other (Sterile skin adhesive) Medical Decision Making Medical Decision Making MDM Narrative: 3:18 AM 06/19/2025 (Kodak NIXON): The patient is an 84-year-old female presenting to the ED for evaluation of fall with head strike with subsequent laceration to the left eyebrow. The patient denies any prodrome but reports recurring pain and weakness of the left knee radiating to left thigh which causes recurrent falls, most recent fall before tonight resulted in ecchymosis and tenderness of the left orbit, patient did not seek medical care at that time. In the ED patient's exam is markedly reassuring, patient is alert and oriented, neurologic function intact, there is a 1 cm laceration immediately superior to the left lateral eyebrow. Laceration was non gaping, well approximated, repaired with skin glue. The patient's CT head, face, and neck are pending interpretation. 4:00 AM 06/19/2025 (Kodak NIXON): The patient's CT facial bones shows evidence of an inferior orbital floor fracture, patient's exam showed no EOM entrapment. CT head and neck are unremarkable. The patient is requesting discharge home. The patient is able to ambulate with a steady gait. We will treat with anti- inflammatories and prophylactic antibiotics, facilitate outpatient follow up with maxillofacial surgery, and plan for discharge. Admission/Observation Consideration of admission/observation: Escalation of care including admission/observation considered Radiology Impression Discussion of test interpretation with radiology: I have reviewed the radiologist's reading. Radiologist Impression: CLINICAL HISTORY: fall with head strike CT Maxillofacial WO Contrast COMPARISON: None provided FINDINGS: Mildly displaced left orbital floor fracture. Anterior and posterior left maxillary sinus wall fractures. Temporomandibular joints are intact. The globes and lenses are intact. No intraorbital hematoma or mass. Small fluid in the left maxillary sinus. Soft tissues unremarkable. IMPRESSION: Left orbital floor fracture. Extraocular muscle entrapment should be excluded clinically. Anterior and posterior left maxillary sinus wall fractures. This document has been electronically signed by: Aki Menezes MD on 06/19/2025 03:46:17 CT Head WO Contrast COMPARISON: Portions of CT/SR - CT HEAD NECK ANGIOGRAPHY WITH IV CONTRAST STROKE - 12/28/22 13:51 EST FINDINGS: No acute intracranial hemorrhage. No evidence of acute infarction. Diffuse cortical volume loss. Nonspecific white matter hypodensities, most commonly associated with chronic microangiopathic changes. No mass-effect or midline shift. No hydrocephalus. Clear mastoid air cells. No acute calvarial fracture. Unremarkable soft tissues. IMPRESSION: No acute intracranial findings. Nonemergent/incidental findings in the report. See separate CT Maxillofacial report. This document has been electronically signed by: Aki Menezes MD on 06/19/2025 03:55:58 CT Cervical Spine WO Contrast COMPARISON: Portions of CT/REG/SR - CT HEAD NECK ANGIOGRAPHY WITH IV CONTRAST STROKE - 12/28/22 13:45 EST FINDINGS: No acute fracture. Degenerative changes in the spine. Chronic grade 1 spondylolistheses. Soft tissues are normal. Scarring at the lung apices. IMPRESSION: No acute findings. Nonemergent/incidental findings above. This document has been electronically signed by: Aki Menezes MD on 06/19/2025 03:50:18 Discharge Plan Discharge Clinical Impression: Fall, Laceration of face, Fracture of inferior orbital wall Patient Disposition: Home, Self-Care Instructions: Laceration (ED), Facial Fracture (ED), Skin Adhesive Care (ED) Additional Instructions: Thank you for choosing [facility] Emergency Department for your care today. Your workup today unfortunately shows that you suffered a fracture of the inferior orbital wall of your left eye. This is a fracture into your maxillary sinus which puts you at high-risk for developing an infection. Thankfully you have full range of motion of your eye movements and as such is no indication for admission to the hospital or continued ED observation, and it is safe to discharge you home. It is extremely important however that you take Augmentin as prescribed, call the [facility] oral maxillofacial surgery office tomorrow morning to schedule an appointment as soon as possible, and avoid blowing your nose at all until advised otherwise by an oral maxillofacial surgeon. Blowing your nose severely increases your risk for developing an infection which can grow into your bone or brain. You may take alternating (staggered) doses of ibuprofen 600mg and Tylenol 1000mg every 4 hours as needed for any additional pain. Please rest the injured area, and apply ice for 20 minutes every hour. Your laceration of your eyebrow was repaired with a skin adhesive, please read the attached information regarding caring for a laceration repaired by skin adhesive In addition to following up with the oral maxillofacial surgeons at [facility], please also follow up with your primary care physician for re-evaluation, additional management of your symptoms, and continued preventative care. If you do not have a primary care physician, please call the [facility] at [phone] to establish a new primary care physician. While waiting to establish your new primary care physician, you can call our [facility] at [phone] for non-emergency needs. Please return to the emergency department if you develop a severe or sudden change in your symptoms, a fever over 100.4 that does not improve with Tylenol or Ibuprofen, recurrent vomiting, or any other new or worsening symptoms or concerns. Prescriptions: New amoxicillin-pot clavulanate 875-125 mg tablet 1 tab PO BID Qty: 20 0RF ibuprofen 600 mg tablet 600 mg PO Q8H PRN (Reason: fever or pain) Qty: 30 0RF acetaminophen 500 mg capsule 1,000 mg PO .q8 PRN (Reason: fever or pain) Qty: 30 0RF No Action levothyroxine 88 mcg tablet 88 mcg PO DAILY@0630 Qty: 90 1RF atorvastatin 20 mg tablet 20 mg PO BEDTIME Qty: 90 1RF fluoxetine 40 mg capsule 80 mg PO DAILY Qty: 180 1RF cholecalciferol (vitamin D3) [Vitamin D3] 25 mcg (1,000 unit) Tablet 25 mcg PO DAILY timolol maleate 0.5 % drops 1 drp ophthalmic (eye) DAILY acetaminophen [Tylenol Extra Strength] 500 mg tablet 500 mg PO Q6H PRN (Reason: Pain (Scale Score 1-3)) diphenhydramine HCl [Benadryl] 25 mg capsule 25 mg PO BEDTIME PRN Referrals: Lit Russell DDS [Dentist, Dentistry] Clinical Impression: Fracture of inferior orbital wall Ivy Lee MD [Primary Care Provider, Internal Medicine] Clinical Impression: Laceration of face; Fracture of inferior orbital wall; Fall Print Language: Arabic
[2025-06-19 03:57] VITALS: BP 153/63; PULSE 60; RESP 14; TEMP 36.7; O2SAT 98
[2025-06-19 05:56] VITALS: BP 153/63; PULSE 60; RESP 14; TEMP 36.7; O2SAT 98
== END 2025-06-19 05:56 | disposition home or self-care (01) ==
PROVIDERS: Emergency Provider Emergency Medicine; PCP Internal Medicine
DX: S01.81XA Laceration without foreign body of other part of head, initial encounter (principal); S02.32XA Fracture of orbital floor, left side, initial encounter for closed fracture; M54.2 Cervicalgia; W26.9XXA Contact with unspecified sharp object(s), initial encounter; Y93.9 Activity, unspecified; Y92.009 Unspecified place in unspecified non-institutional (private) residence as the place of occurrence of the external cause; Y99.8 Other external cause status; Z79.899 Other long term (current) drug therapy
CPT/HCPCS: 12011; 70450; 70486; 72125; 99284

== ENCOUNTER → 2025-06-19 01:10 | Outpatient (BNV) | payer MEDICARE, MEDICAID, SELFPAY | PROVIDERS: Emergency Provider Emergency Medicine; PCP Internal Medicine; Visit Provider Radiology Diagnostic Radiology | DX: M43.16 Spondylolisthesis, lumbar region (principal); S02.32XA Fracture of orbital floor, left side, initial encounter for closed fracture | CPT/HCPCS: 70450; 70486; 72125 ==

== ENCOUNTER 2025-07-10 09:11 | Outpatient (REF) | payer MEDICARE, MEDICAID, SELFPAY | END 2025-07-10 09:12 | disposition home or self-care (01) | LOC: HO.SH 09:11 | PROVIDERS: Visit Provider Internal Medicine | DX: Z13.89 Encounter for screening for other disorder (principal) ==

== ENCOUNTER 2025-07-16 12:48 | Outpatient (AMB) | payer MEDICARE, MEDICAID, SELFPAY ==
[2025-07-16 13:03] VITALS: BP 130/70; PULSE 67; RESP 15; TEMP 37; O2SAT 97; BMI 25.1
--- NOTE | 2025-07-16 13:03 | MHC.PC.OV ---
Vital Signs 07/16/25 13:03 Height 5 ft 4 in Weight 146 lb BMI 25.1 BP 130/70 Blood Pressure Location Lt brachial Position Sitting Respiration 15 Pulse 67 Pulse Source Pulse Oximeter Temp 98.6 F Temp Source Oral Pulse Oximetry (%) 97 Oxygen Delivery Method Room Air Intake Visit Reasons: ER followup, orbital fx Intake Note: Pt is here today for her ER f/u due to a fall x3wks ago/ Also pt c/o burning upon urination and red tint urine x1week Allergies No Known Allergies Allergy (Verified 07/16/25 13:34) Medication List - Last Reconciled 07/16/25 by Ivy Lee MD acetaminophen 1,000 mg (2 x 500 mg) PO .q8 PRN atorvastatin 20 mg PO BEDTIME cholecalciferol (vitamin D3) (Vitamin D3) 25 mcg PO DAILY fluoxetine 80 mg (2 x 40 mg) PO DAILY ibuprofen 600 mg PO Q8H PRN levothyroxine 88 mcg PO DAILY@0630 timolol maleate 0.5% 1 drp ophthalmic (eye) DAILY Tobacco use date assessed: 07/16/25 Last assessed Fall Risk: 07/16/25 Dental Screening Dental Screen Date: 07/16/25 Did you have a dental visit in the last 12 months?: No Did you have a dental problem in the last 6 months where you did not have access to dental care?: No Was dental information given to patient?: Patient has dentist HPI ER followup, orbital fx HPI Details 84-year-old lady here today for follow-up after recent ER visit. She suffered a mechanical fall in her bathroom, striking her head on the tub on . No loss of consciousness, denies any prodrome except for recurrent pain and weakness of the left knee radiating to left thigh which has been causing her to fall frequently she sustained a laceration above her left eyebrow and CT of facial bones shows evidence of an inferior orbital floor fracture with no EOM entrapment. CT of head and neck were unremarkable she was placed on prophylactic antibiotics, and anti-inflammatories and advised to follow-up with maxillary facial surgery after discharge. [facility] Medical History Generalized anxiety disorder Left knee pain Hip pain, left Frequent falls Anxiety and depression Glaucoma Impaired fasting glucose Hx of migraine headaches Pain of left calf Ocular migraine Hearing loss Mammogram declined Colonoscopy refused Obsessive-compulsive disorder Menopause Dyslipidemia Acquired hypothyroidism Surgical History No pertinent past surgical history Family History Father Substance use disorder Brother Substance use disorder Brother Substance use disorder Social History Household Members: None Housing: Other Housing Other:: independent living (in own apartment) Do you presently have visiting nurse or other home services: No Alcohol intake: never Patient Tobacco Use Status: Never used Tobacco e-Cigarette/Vaping Use: Never Used Advance Directives Date on File: 03/11/23 service: No Current occupational status: retired Cognitive needs: No Hearing needs: Yes Vision needs: Yes Questionnaire Thrive Questionnaire Date Thrive assessed: 07/16/25 ANJANA-7 AMB Questionnaire ANJANA-7 Date ANJANA - 7 assessed: 11/05/24 Source: Developed by Drs. Jeff Warner, Anjelica Encinas, Diomedes Kemp and colleagues, with an educational lauren from [employer]. Physical exam (Primary Care) Vital Signs: Last Vital Signs Temp 98.6 F 07/16/25 13:03 Pulse 67 07/16/25 13:03 Resp 15 07/16/25 13:03 BP 130/70 07/16/25 13:03 Pulse Ox 97 07/16/25 13:03 Oxygen Delivery Method Room Air 07/16/25 13:03 BMI result Body Mass Index 25.1 Tobacco/Smoking Status: Tobacco use Status Tobacco use date assessed 07/16/25 07/16/25 13:12 Patient Tobacco Use Status Never used Tobacco 07/16/25 13:12 e-Cigarette/Vaping Use Never Used 07/16/25 13:12 Thrive Assessment: Date of Thrive Assessment Date Thrive assessed 07/16/25 07/16/25 13:12 Results AMB Urinalysis, Automated UA Leukoctes 70 Nba/uL Last Edit by Trupti Ricks CMA on 07/16/25 13:27 UA Nitrite Negative Last Edit by Trupti Ricks CMA on 07/16/25 13:27 UA Urobilinogen 0.2 mg/dL Last Edit by Trupti Ricks, [employer] on 07/16/25 13:27 UA Protein 30 mg/dL Last Edit by Trupti Ricks, [employer] on 07/16/25 13:27 UA pH 6.0 Last Edit by Trupti Ricks, [employer] on 07/16/25 13:27 UA Blood 200 Edward/uL Last Edit by Trupti Ricks, [employer] on 07/16/25 13:27 UA Specific [place] 1.025 Last Edit by Trupti Ricks, [facility] on 07/16/25 13:27 UA Ketone Negative Last Edit by Trupti iRcks, [employer] on 07/16/25 13:27 UA Bilirubin 0 mg/dL Last Edit by Trupti Ricks, [employer] on 07/16/25 13:27 UA Glucose 0 mg/dL Last Edit by Trupti Ricks, [employer] on 07/16/25 13:27 Results Reviewed Results Reviewed: Laboratory Last Values Urine pH (Auto) 6.0 07/16/25 13:13 Specific [place] (Auto) 1.025 07/16/25 13:13 Urine Protein (Auto) 30 mg/dL 07/16/25 13:13 Glucose (UA)(Auto) 0 mg/dL 07/16/25 13:13 Urine Ketones (Auto) Negative 07/16/25 13:13 Urine Blood (Auto) 200 Edward/uL 07/16/25 13:13 Urine Nitrite (Auto) Negative 07/16/25 13:13 Urine Bilirubin (Auto) 0 mg/dL 07/16/25 13:13 Urine Urobilinogen (Auto) 0.2 mg/dL 07/16/25 13:13 Leukocyte Esterase (Auto) 70 Nba/uL 07/16/25 13:13 Coding Diagnoses Recurrent left knee instability M23.52 Frequent falls R29.6 Hip pain, left M25.552 Assessment & Plan Assessment & Plan (1) Recurrent left knee instability: Code(s): M23.52 - Chronic instability of knee, left knee Category: Medical (2) Frequent falls: Code(s): R29.6 - Repeated falls Category: Medical (3) Hip pain, left: Code(s): M25.552 - Pain in left hip Category: Medical Orders: Orders AMB Urinalysis Automated Today Z13.9 - Encounter for screening, unspecified PT Evaluation and Treatment Today M23.52 - Chronic instability of knee, left knee, M25.552 - Pain in left hip, R29.6 - Repeated falls Medications: New nitrofurantoin monohyd/m-cryst 100 mg must administer with a meal/food 100 mg PO Q12H 20 caps 0RF 10 days
--- OUTSIDE RECORDS SUMMARY | 2025-07-16 13:59 | XMS_ITS | Patient Health Record ---
Author Organization [facility] Address [address] [place] [address] Care Team Providers Care Proof Sorter Name Role Phone Jennifer Augustin NP Primary Care Provider U Jeff Boothe Unavailable [phone] Allergies Allergen (clinical drug ingredient) Drug/Non Drug [...] Status Risk Notes Problem Colon cancer screening (205930346) Colon cancer screening (V76.51) Active confirmed Problem History of adenomatous polyp of colon (811091382) History of adenomatous polyp of colon (V12.72) Active confirmed Problem Long-term use of aspirin therapy (V58.66) Active confirmed Plan Of Treatment Future Test Test Name Order Date COLONOSCOPY 01/01/2015 Insurance Providers Payer Name Payer Address Payer Phone Subscriber Number Group Number Insured Name Patient Relationship to Insured Coverage Start Date Coverage End Date MED[place]ARE OF [place] [address] [place] [address] [phone] [id number] JENARO TIWARI Self - patient is the insured [employer] [address] [place] [id number] JENARO TIWARI Self - patient is the insured Medical (General) History Medical History History ICD Code Screening colonoscopy 18-2 006-1 small tubular adenoma removed, sigmoid diverticulosis, internal hemorrhoids Hypothyroidism hyperlipidemia obsessive compulsive disorder Denies IL,DM,CVA,Lung disease,renal dise ase Negative cardiac cath in 08/2014 Surgical History Surgery Date(Month/Year) Pilonidal cyst removal Left carpal tunnel
== END 2025-07-16 14:30 | disposition home or self-care (01) ==
LOC: HO.HMCC 12:49
PROVIDERS: PCP Internal Medicine; Visit Provider Internal Medicine
DX: Z13.9 Encounter for screening, unspecified (principal)

== ENCOUNTER → 2025-07-16 12:48 | Outpatient (BNVA) | payer MEDICARE, MEDICAID, SELFPAY | PROVIDERS: PCP Internal Medicine; Visit Provider Internal Medicine | DX: S02.30XD Fracture of orbital floor, unspecified side, subsequent encounter for fracture with routine healing (principal); M23.52 Chronic instability of knee, left knee; R29.6 Repeated falls; M25.552 Pain in left hip; N39.0 Urinary tract infection, site not specified | CPT/HCPCS: 81003; 99212 ==

== ENCOUNTER 2025-08-12 09:25 | Outpatient (AMB) | payer MEDICARE, MEDICAID, SELFPAY ==
--- NOTE | 2025-08-12 09:56 | AM.OFFVISMDC ---
Intake Vital Signs 08/12/25 09:57 Height 5 ft 4 in Weight 145 lb BMI 24.9 BP 128/70 Blood Pressure Location Rt brachial Position Sitting Respiration 15 Pulse 67 Pulse Source Pulse Oximeter Temp 98.3 F Temp Source Oral Pulse Oximetry (%) 97 Oxygen Delivery Method Room Air Intake Visit Reasons: SANDIV G0439 Intake Note: Pt is here today for her SWV Allergies No Known Allergies Allergy (Verified 08/18/25 18:58) Medication List - Last Reconciled 08/18/25 by Ivy Lee MD acetaminophen 1,000 mg (2 x 500 mg) PO .q8 PRN atorvastatin 20 mg PO BEDTIME cholecalciferol (vitamin D3) (Vitamin D3) 25 mcg PO DAILY fluoxetine 80 mg (2 x 40 mg) PO DAILY ibuprofen 600 mg PO Q8H PRN levothyroxine 88 mcg PO DAILY@0630 timolol maleate 0.5% 1 drp ophthalmic (eye) DAILY HPI SWV G0439 HPI Details SWV ? 85 year old with a history of arthritis, obsessive compulsive disorder, glaucoma, dyslipidemia, acquired hypothyroidism, and hearing loss, presents for her ? Annual Wellness Visit, subsequent visit. Has not had any colonoscopy or breast cancer screening or bone density scan, has declined procedures in the past. She had a normal fasting lipid panel and fasting blood sugar done 11/14/2024 Received an updated flu vaccine and COVID booster 07/2025, and is up-to-date with her pneumococcal vaccination, shingles vaccination, RSV vaccination and Tdap. ? Medical / Social History Reviewed? Past Medical History ?Yes . ? Jena of Care / Care Team list updated ?Yes . ? Surgical/Hospitalization History ?Yes . ? Current Medications (including OTC and supplements) ?Yes . ? Family History ?Yes . ? Tobacco Control form ?Yes . ? AUDIT-C (Alcohol use) form ?Yes . ? Illicit drug use in Social History ?Yes . ? Current diagnosis of depression? ?Yes, also has obsessive-compulsive disorder currently on fluoxetine at 80 mg daily, would like a referral to see a psychiatrist for follow-up. Has tried tapering fluoxetine in the past but has been unsuccessful. ? Appropriate PHQ2/PHQ9 completed ?Yes . ? Data entered by ?Security Investigator and reviewed by provider ? Fall Risk ? Fall History? Have you had any falls with injury in the past year? ?No . ? Have you had two or more falls in the past year? ?No . ? Fall Risk Assessment: ?No falls in the past year . ? HRA filled out by the patient, reviewed by Provider and scanned. ?AWV ? Balance? Romberg ?negative . ? Tandem walk- with difficulty, currently being seen by [facility] for treatment of gait instability due to left leg weakness. ? Walk and Turn ?Yes . ? Rise from sit to stand ?Yes . ?Vision? Corrective lens ?Yes ? Vision screen ? Up-to-date, currently being seen by Dr. Adams ?Hearing? Whisper test ?-wears hearing aids ?Written Plan?Completed. See Patient Documents.?-already has her her healthcare proxy and MOLST form [facility] Medical History Fracture of orbital floor with routine healing Hip pain, left Frequent falls Recurrent left knee instability Generalized anxiety disorder Left knee pain Frequent falls Anxiety and depression Glaucoma Impaired fasting glucose Hx of migraine headaches Pain of left calf Ocular migraine Hearing loss Mammogram declined Colonoscopy refused Obsessive-compulsive disorder Menopause Dyslipidemia Acquired hypothyroidism Surgical History No pertinent past surgical history Family History Father Substance use disorder Brother Substance use disorder Brother Substance use disorder Social History Household Members: None Housing: Other Housing Other:: independent living (in own apartment) Do you presently have visiting nurse or other home services: No Alcohol intake: never Patient Tobacco Use Status: Never used Tobacco e-Cigarette/Vaping Use: Never Used Advance Directives Date on File: 03/11/23 service: No Current occupational status: retired Cognitive needs: No Hearing needs: Yes Vision needs: Yes Questionnaire Medicare Wellness Checkup What is your age?: 80 or older What gender do you identify with?: female During the past 4 weeks, how much have you been bothered by emotional problems such as feeling anxious, depressed, irritable, sad or downhearted, and blue?: moderately During the past 4 weeks, has your physical & emotional health limited your social activities with family, friends, neighbors, or groups?: not at all During the past 4 weeks, how much bodily pain have you generally had?: moderate pain During the past 4 weeks, was someone available to help you if you needed & wanted help?: yes, as much as I wanted During the past 4 weeks, what was the hardest physical activity you could do for at least 2 minutes?: heavy Can you get to places out of walking distance without help? (For eg., can you travel alone on buses, taxis or drive your car?): Yes Can you go shopping for groceries or clothes without someone's help?: Yes Can you prepare your own meals?: Yes Can you do your housework without help?: Yes Because of any health problems, do you need the help of another person with your personal care needs such as eating, bathing, dressing or getting around the house?: No Can you handle your own money without help?: Yes During the past 4 weeks, how would you rate your health in general?: good During the past 4 weeks how have things been going for you?: pretty well Are you having difficulties driving your car?: no Do you always fasten your seat belt when you are in a car?: yes, usually During past 4 weeks, have you been bothered by the following: never: Sexual problems?, Trouble eating well?, Teeth or denture problems? and Problems using the telephone?, sometimes: Tiredness or fatigue? and often: Falling or dizzy when standing up Have you fallen 2 or more times in the past year?: Yes Are you afraid of falling?: Yes Are you a smoker?: no During the past 4 weeks, how many drinks of wine, beer, or other alcoholic beverages did you have?: no alcohol at all Do you exercise for about 20 minutes 3 or more times a week?: yes, all the time Have you been given information to help with the following?: yes: Hazards in your house that might hurt you? and yes: Keeping track of your medications? How often do you have trouble taking medicines the way you have been told to take them?: I always take medicine as prescribed How confident are you that you can control & manage most of your health problems?: somewhat confident What is your race?: White Mini Mental State Exam (MMSE) Orientation What is the (year) (season) (date) (day) (month)?: year (2024), season (summer), date (08/12/25), day (Tuesday ) and month () Where are we (state) (county) (town or city) (hospital) (floor)?: state ([facility]), [facility] ([place]), town or city ([place] ) and hospital/clinic ([facility]) Score Score: 9 Activity of Daily Living Bathing - sponge bath, tub bath or shower: receives no assistance (gets in/out by self, if usual bathing means Dressing - getting clothes from closets & drawers, including inner/outer garments & fasteners.: gets clothes & gets completely dressed without help Toileting - going to the 'toilet room' for urine/bowel elimination & cleaning self/arranging clothes: goes to toilet room, cleans self, arranges clothes without help Transfer: moves in & out of bed and chair without help (may use support object) Continence: has occasional 'accidents' Feeding: feeds self without help Total Score: 0 Information obtained from: patient Using telephone: independent Traveling: independent Shopping: independent Preparing meals: independent Housework: independent Taking medicine: independent Managing money: independent PHQ-9 Over the last 2 weeks, how often have you been bothered by any of the following problems? 1. Little interest or pleasure in doing things: not at all 2. Feeling down, depressed, or hopeless: not at all 3. Trouble falling or staying asleep, or sleeping too much: several days 4. Feeling tired or having little energy: several days 5. Poor appetite or overeating: not at all 6. Feeling bad about yourself - or that you are a failure or have let yourself or your family down: not at all 7. Trouble concentrating on things, such as reading the newspaper or watching television: not at all 8. Moving or speaking so slowly that other people could have noticed. Or the opposite - being so fidgety or restless that you have been moving around a lot more than usual: not at all 9. Thoughts that you would be better off or of hurting yourself in some way: not at all Total score: 2 Depression Screening Interpretation: Negative Depression Screening Done: Yes 95295 - PHQ-9 Billing: Yes Source: Developed by Drs. Jeff Warner, Anjelica Encinas, Diomedes Kemp and colleagues, with an educational lauren from [employer]. Physical Exam Vital Signs: Last Vital Signs Temp 98.3 F 08/12/25 09:57 Pulse 67 08/12/25 09:57 Resp 08/12/25 09:57 BP 128/70 08/12/25 09:57 Pulse Ox 97 08/12/25 09:57 Oxygen Delivery Method Room Air 08/12/25 09:57 BMI result Body Mass Index 24.9 Assessment & Plan Assessment & Plan (1) Encounter for subsequent annual wellness visit (AWV) in Medicare patient: Code(s): Z00.00 - Encounter for general adult medical examination without abnormal findings Plan: Medical wellness checklist reviewed, discussed with patient and updated. Patient he is up-to-date with all her vaccinations. Up-to-date with her advanced directives (2) Obsessive-compulsive disorder: Code(s): F42.9 - Obsessive-compulsive disorder, unspecified Plan: Referred to Psychiatry at [facility] for follow-up currently on high-dose fluoxetine at 80 mg daily (3) Anxiety and depression: Code(s): F41.9 - Anxiety disorder, unspecified; F32.A - Depression, unspecified Plan: Referred to Psychiatry at [facility], for follow-up currently on high-dose fluoxetine 80 mg daily (4) Acquired hypothyroidism: Code(s): E03.9 - Hypothyroidism, unspecified Plan: Continue with current dose of levothyroxine 88 mcg daily (5) Dyslipidemia: Code(s): E78.5 - Hyperlipidemia, unspecified Plan: Currently on atorvastatin 20 mg daily (6) Hearing loss: Code(s): H91.90 - Unspecified hearing loss, unspecified ear Qualifiers: Hearing loss type: unspecified Laterality: bilateral Qualified Code(s): H91.93 - Unspecified hearing loss, bilateral Plan: Wears hearing aids (7) Impaired fasting glucose: Code(s): R73.01 - Impaired fasting glucose Plan: Your previous fasting blood sugars were elevated above 100 mg/dL. Impaired glucose metabolism increases the risk for developing diabetes mellitus type 2, as well as heart attack and stroke later on. Lifestyle changes that promotes weight loss, healthy eating habits, and regular exercise are important, and can prevent the progression to diabetes (8) Glaucoma: Code(s): H40.9 - Unspecified glaucoma Qualifiers: Glaucoma type: unspecified Plan: Followed by Dr. Adams currently on timolol maleate 0.5% 1 drop daily Orders: Orders Lipid Panel 10/28/25 E03.9 - Hypothyroidism, unspecified, E78.5 - Hyperlipidemia, unspecified, F32.A - Depression, unspecified, F41.9 - Anxiety disorder, unspecified, F42.9 - Obsessive-compulsive disorder, unspecified, H40.9 - Unspecified glaucoma, H91.93 - Unspecified hearing loss, bilateral, R73.01 - Impaired fasting glucose Vitamin D 25-OH Total 10/28/25 E03.9 - Hypothyroidism, unspecified, E78.5 - Hyperlipidemia, unspecified, F32.A - Depression, unspecified, F41.9 - Anxiety disorder, unspecified, F42.9 - Obsessive-compulsive disorder, unspecified, H40.9 - Unspecified glaucoma, H91.93 - Unspecified hearing loss, bilateral, R73.01 - Impaired fasting glucose Free T4 (Free Thyroxine) 10/28/25 E03.9 - Hypothyroidism, unspecified, E78.5 - Hyperlipidemia, unspecified, F32.A - Depression, unspecified, F41.9 - Anxiety disorder, unspecified, F42.9 - Obsessive-compulsive disorder, unspecified, H40.9 - Unspecified glaucoma, H91.93 - Unspecified hearing loss, bilateral, R73.01 - Impaired fasting glucose Alanine Aminotransferase 10/28/25 E03.9 - Hypothyroidism, unspecified, E78.5 - Hyperlipidemia, unspecified, F32.A - Depression, unspecified, F41.9 - Anxiety disorder, unspecified, F42.9 - Obsessive-compulsive disorder, unspecified, H40.9 - Unspecified glaucoma, H91.93 - Unspecified hearing loss, bilateral, R73.01 - Impaired fasting glucose Aspartate Amino Transferase 10/28/25 E03.9 - Hypothyroidism, unspecified, E78.5 - Hyperlipidemia, unspecified, F32.A - Depression, unspecified, F41.9 - Anxiety disorder, unspecified, F42.9 - Obsessive-compulsive disorder, unspecified, H40.9 - Unspecified glaucoma, H91.93 - Unspecified hearing loss, bilateral, R73.01 - Impaired fasting glucose Thyroid Stimulating Hormone 10/28/25 E03.9 - Hypothyroidism, unspecified, E78.5 - Hyperlipidemia, unspecified, F32.A - Depression, unspecified, F41.9 - Anxiety disorder, unspecified, F42.9 - Obsessive-compulsive disorder, unspecified, H40.9 - Unspecified glaucoma, H91.93 - Unspecified hearing loss, bilateral, R73.01 - Impaired fasting glucose Referrals Psychiatry Referral F32.A - Depression, unspecified, F41.9 - Anxiety disorder, unspecified, F42.9 - Obsessive-compulsive disorder, unspecified Quality Reporting (2019) Depression/Bipolar (159/160/161/177) PHQ-9: Total score: 2 Coding Level of Care Code Medicare Subsequent (G0439) Diagnoses Encounter for subsequent annual wellness visit (AWV) in Medicare patient Z00.00 Obsessive-compulsive disorder F42.9 Anxiety and depression F41.9; F32.A Acquired hypothyroidism E03.9 Dyslipidemia E78.5 Bilateral hearing loss, unspecified hearing loss type H91.93 Hearing loss type: unspecified Laterality: bilateral Impaired fasting glucose R73.01 Glaucoma H40.9 Glaucoma type: unspecified CPT Codes Advance Care Planning - Advance Care Planning discussion: On file, no changes ([id number]) Advance Care Planning - Time spent: 1-15 minutes, on File ([id number]) Additional Codes PHQ-9 - 19240 - PHQ-9 Billing: Yes ([id number]) Advance Care Planning Advance Care Planning discussion: On file, no changes Date of discussion: 08/18/25 Who was present: Patient Forms completed: Health Care Proxy and MOLST Time spent: 1-15 minutes, on File Actual minutes spent: 1
[2025-08-12 09:57] VITALS: BP 128/70; PULSE 67; RESP 15; TEMP 36.8; O2SAT 97; BMI 24.9
--- OUTSIDE RECORDS SUMMARY | 2025-08-12 11:15 | XMS_ITS | Patient Health Record ---
Author Organization [facility] Address [address] [place] [address] Care Team Providers Care Basket Turner Name Role Phone Jennifer Augustin NP Primary Care Provider U Jeff Boothe Unavailable [phone] Allergies Allergen (clinical drug ingredient) Drug/Non Drug [...] Status Risk Notes Problem Colon cancer screening (398080995) Colon cancer screening (V76.51) Active confirmed Problem History of adenomatous polyp of colon (190338521) History of adenomatous polyp of colon (V12.72) Active confirmed Problem Long-term use of aspirin therapy (V58.66) Active confirmed Plan Of Treatment Future Test Test Name Order Date COLONOSCOPY 01/01/2015 Insurance Providers Payer Name Payer Address Payer Phone Subscriber Number Group Number Insured Name Patient Relationship to Insured Coverage Start Date Coverage End Date [place] OF [place] [address] [place] [address] [id number] JENARO TIWARI Self - patient is the insured EBPA [address] [place] [id number] JENARO TIWARI Self - patient is the insured Medical (General) History Medical History History ICD Code Screening colonoscopy 18-2 006-1 small tubular adenoma removed, sigmoid diverticulosis, internal hemorrhoids Hypothyroidism hyperlipidemia obsessive compulsive disorder Denies WA,DM,CVA,Lung disease,renal dise ase Negative cardiac cath in 08/2014 Surgical History Surgery Date(Month/Year) Pilonidal cyst removal Left carpal tunnel
== END 2025-08-12 10:38 | disposition home or self-care (01) ==
LOC: HO.HMCC 09:26
PROVIDERS: PCP Internal Medicine; Visit Provider Internal Medicine
DX: Z00.00 Encounter for general adult medical examination without abnormal findings (principal); F42.9 Obsessive-compulsive disorder, unspecified; F41.9 Anxiety disorder, unspecified; F32.A Depression, unspecified; E03.9 Hypothyroidism, unspecified; E78.5 Hyperlipidemia, unspecified; H91.93 Unspecified hearing loss, bilateral; R73.01 Impaired fasting glucose; H40.9 Unspecified glaucoma

== ENCOUNTER → 2025-08-12 09:25 | Outpatient (BNVA) | payer MEDICARE, MEDICAID, SELFPAY | PROVIDERS: PCP Internal Medicine; Visit Provider Internal Medicine | DX: Z00.00 Encounter for general adult medical examination without abnormal findings (principal); F42.9 Obsessive-compulsive disorder, unspecified; F41.9 Anxiety disorder, unspecified; F32.A Depression, unspecified; E78.5 Hyperlipidemia, unspecified; H91.93 Unspecified hearing loss, bilateral; R73.01 Impaired fasting glucose; H40.9 Unspecified glaucoma | CPT/HCPCS: 96127 ==

== ENCOUNTER 2025-08-20 11:00 | Outpatient (RCR) | payer MEDICARE, MEDICAID, SELFPAY ==
--- NOTE | 2025-08-01 10:06 | MHC.PT.EP ---
[facility] [place] Office [place] Office [place] Office [address] Tam[address] Kumar [address] [phone] F: [phone] F: [phone] F: [phone] F: [phone] Physical Therapy Plan of Care Date of Evaluation: 08/01/25 Date of Surgery: Diagnosis: chronic instability of L knee repeated falls pain in L hip has been having recurrent falls d/t instability in L knee and hip, recent fall was 06/19/25 sustaining INferior orbital fx Assessment: 85 y/o female referred to PT with frequent falls and L hip/knee pain. She has several falls a month (falls started in the per pt). She denies dizziness, n/v, fogginess, lightheadedness and states falls occur mostly when she is turning/ walking and her knee cece. Her last fall resulted in orbital fx L side on 06/19/25. SHe just got a cane 2 weeks ago and is using it in L hand. Examination shows decreased B LE strength (L weaker than R), poor sit to stand mechanics, poor dynamic balance, impulsive and rushed transitional movements that are very unsteady, and impaired gait pattern. Reviewed safety with transitional movements, ruh-mh-gwhzf mechanics, slowing down and pacing self to optimize safe, functional mobility. Distributed HEP. Recommend PT 1x/week for 8 weeks to address impairments, implement HEP and optimize functional mobility. Frequency and Duration: The patient will be seen 1x/week for 8 weeks Short Term Goals: 4 weeks I with hEP Pt will demosntrate proper sit to stand mechanics with hands 5/5x Chcf Goals: 8 weeks I with HEP and self management of sx Pt will be able to perform 8 sit to stands in 30 seconds Pt will miprove LEFS to 40/80 (IR 28/80) Treatment Plan: Modalities to reduce pain, spasms and effusion. Manual therapy to restore motion and function. Therapeutic exercise to improve strength and flexibility. Neuromuscular re-education for posture and balance. Therapeutic activities to return to functional activities of daily living. Electronically signed by: Bettie Johnson PT Please sign and return to therapist. Thank you for your referral.
--- NOTE | 2025-09-16 14:46 | MHC.PT.DC ---
[facility] [place] Office [place] Office [place] Office [address] [phone] F: [phone] F: [phone] F: [phone] F: [phone] Physical Therapy Discharge Report Diagnosis: chronic instability of L knee repeated falls pain in L hip has been having recurrent falls d/t instability in L knee and hip, recent fall was 06/19/25 sustaining INferior orbital fx Date of Surgery: Date of Evaluation: 08/01/25 Date of Discharge: 09/16/25 Treatments to Date: 3 Cancellations to Date: 0 No Shows to Date: 1 Discharge Status: Patient Elected to Stop Discharge Summary: Pt requested D/C from PT as she feels she has the exercises to work on at home. Reviewed HEP and reviewed pacing with exercises as well as investigating L knee brace for improved stability. Electronically signed by: Bettie Johnson PT Please sign and return to therapist. Thank you for your referral.
== END 2025-09-16 14:46 | disposition home or self-care (01) ==
LOC: HO.PT 11:00
PROVIDERS: PCP Internal Medicine; Visit Provider Internal Medicine
DX: M23.52 Chronic instability of knee, left knee (principal); R29.6 Repeated falls; M25.552 Pain in left hip
CPT/HCPCS: 97110; 97116; 97162; 97530

== ENCOUNTER 2025-09-14 20:39 | Emergency (ER) | payer MEDICARE, MEDICAID, SELFPAY ==
--- NOTE | ~2025-09-14 | CT_ITS ---
CLINICAL HISTORY: multiple falls, trauma CT chest with contrast Comparison: None provided Findings: The heart is normal size. The visualized thyroid and mediastinum are unremarkable. No consolidation or effusion. The upper abdomen is unremarkable. The bones are intact. No fracture deformity. IMPRESSION: No acute injury in the chest. This document has been electronically signed by: Wilder Eng MD on 09/15/2025 00:13:57
--- NOTE | ~2025-09-14 | XR_ITS ---
CLINICAL HISTORY: Fall, trauma Four views of the right knee and four views of the left knee. Comparison: None provided Findings: Right knee: Bones intact. No dislocations. No acute fracture deformity. Joint space narrowing and marginal osteophyte formation of the patellofemoral joint compartment. Small marginal osteophytes at the medial and lateral joint compartments with preservation of the joint space. No joint effusion. No radiopaque foreign body. Left knee: No acute fracture deformity. Joint spaces are preserved at the medial and lateral joint compartments. Joint space narrowing of the patellofemoral joint with marginal osteophytes. Small marginal osteophytes of the medial joint compartment. No joint effusion. No radiopaque foreign body. IMPRESSION: No acute injury in the right or left knee. This document has been electronically signed by: Wilder Eng MD on 09/15/2025 03:02:21
--- NOTE | ~2025-09-14 | CT_ITS ---
CLINICAL HISTORY: multiple falls, trauma CT abdomen and pelvis with contrast Comparison: None provided Findings: The lung bases are clear. The liver, gallbladder, spleen, pancreas, kidneys and adrenal glands are normal in appearance. No bowel obstruction, pneumoperitoneum, or pneumatosis. Small fat containing umbilical hernia. There is a small caliber tube within the rectum. Uterus and adnexa are unremarkable. Normal appendix. Moderate distention of the urinary bladder. Tiny dot of gas within the urinary bladder which may be related to recent instrumentation. Dextroscoliosis of the lumbar spine. There is a chronic appearing superior endplate deformity of T12. Multilevel degenerative change of the lumbar spine. No acute fracture deformity identified. IMPRESSION: No findings of acute injury in the abdomen or pelvis. This document has been electronically signed by: Wilder Eng MD on 09/15/2025 00:10:57
--- NOTE | ~2025-09-14 | CT_ITS ---
CLINICAL HISTORY: multiple falls, trauma CT cervical spine without contrast Comparison: CT/SR - CT CERVICAL SPINE WO IV CON - 06/19/25 01:16 EDT Findings: Reversal of the cervical lordosis. Osteopenia. Multilevel spondylosis with osteophytosis, uncovertebral hypertrophy, facet arthropathy and degenerative disc disease. Anterolisthesis at C2-C3 anterolisthesis at C7-T1. Diffuse spinal canal narrowing, for example moderate at C4-C5 with severe bilateral foraminal stenoses. No acute fractures or dislocations. No acute findings on limited view of the intracranial contents. No cervical fluid collections or masses. Biapical pleural nodularity and thickening with calcified plaques. IMPRESSION: No acute findings. Additional findings as described. This document has been electronically signed by: Jovan Zhou MD on 09/14/2025 23:29:12
--- NOTE | ~2025-09-14 | CT_ITS ---
CLINICAL HISTORY: multiple falls, trauma CT head without contrast Comparison: CT/SR - CT HEAD/BRAIN WO IV CON - 06/19/25 01:16 EDT Findings: Scattered subcortical and periventricular hypoattenuation, likely in keeping with chronic small vessel ischemic disease. Parenchymal volume loss with compensatory prominence of the ventricles and CSF spaces. No acute territorial infarction, intracranial hemorrhage, midline shift or hydrocephalus. Expansile empty sella, nonspecific. Mineralization in the basal ganglia noted. Mucosal thickening throughout the paranasal sinuses. The orbits are within normal limits. There is no acute fracture. IMPRESSION: 1. No acute intracranial abnormality. 2. Additional findings as described. This document has been electronically signed by: Jovan Zhou MD on 09/14/2025 23:26:15
[2025-09-14 21:01] VITALS: BP 114/70; PULSE 83; O2SAT 95
[2025-09-14 21:06] VITALS: BP 138/56; PULSE 78; RESP 16; TEMP 37.6; O2SAT 96; BMI 25.2
--- NOTE | 2025-09-14 21:11 | ECG_ITS ---
Test Reason : fall Blood Pressure : */* mmHG Vent. Rate : 76 BPM Atrial Rate : 76 BPM P-R Int : 126 ms QRS Dur : 140 ms QT Int : 410 ms P-R-T Axes : 51 -71 39 degrees QTcB Int : 461 ms Normal sinus rhythm Right bundle branch block Bifascicular block Abnormal ECG When compared with ECG of 28-Dec-2022 14:08, Nonspecific T wave abnormality now evident in Anterior leads Referred By: Belem Morris Electronically Signed By: Enrique Harris
--- NOTE | 2025-09-14 21:13 | ED.FALL ---
HPI - Fall General Chief Complaint: Fall Stated Complaint: REPEAT FALLS,HIT HEAD,WEAK LEGS,+COVID X3D Time Seen by Provider: 09/14/25 21:02 Source: patient, EMS, RN notes reviewed and old records reviewed Mode of arrival: EMS Limitations: no limitations History of Present Illness ED Provider: Dr. Belem Morris HPI Narrative: 85-year-old female with history of hyperlipidemia and anxiety presenting after multiple falls occurred at home today. Patient lives at an independent fpc complex. Admits that she fell twice over the last 24 hours with positive head strike. Denies LOC. Does not take blood thinners. Of note, she was recently diagnosed with COVID-19 about 3 days ago. Has been taking Tylenol and Motrin, alternating the 2, last dose of Tylenol was earlier this morning, last dose of Motrin around 7:00 p.m. tonight. She arrives in the emergency department with a temperature of 103.2?. States that she feels globally weak. She thinks that she fell because she tripped in her house while she was going to the bathroom. She has multiple bruises on her face, head, torso and bilateral knees. Denies vomiting or bowel changes but has had a poor appetite over the last couple of days. Endorses a dry cough and chest pain. Does not feel short of breath right now. Related Data Home Medications ?Medication ?Instructions ?Recorded ?Confirmed timolol maleate 0.5 % eye drops 1 drp ophthalmic (eye) DAILY 02/09/21 09/15/25 cholecalciferol (vitamin D3) 25 25 mcg PO DAILY 12/28/22 09/15/25 mcg (1,000 unit) tablet (Vitamin D3) Previous Rx's ?Medication ?Instructions ?Recorded atorvastatin 20 mg tablet 20 mg PO BEDTIME #90 tabs 04/03/25 fluoxetine 40 mg capsule 80 mg (2 x 40 mg) PO DAILY #180 04/15/25 caps acetaminophen 500 mg capsule 1,000 mg (2 x 500 mg) PO .q8 PRN 06/19/25 fever or pain #30 caps ibuprofen 600 mg tablet 600 mg PO Q8H PRN fever or pain 06/19/25 #30 tabs levothyroxine 88 mcg tablet 88 mcg PO DAILY@0630 #90 tabs 09/03/25 Allergies Allergy/AdvReac Type Severity Reaction Status Date / Time No Known Allergies Allergy Verified 09/14/25 21:08 Review of Systems Review of Systems: As per HPI, full review of systems performed and negative but for the above mentioned pertinent positives and negatives. [facility] Past Medical History Medical History Fracture of orbital floor with routine healing Hip pain, left Frequent falls Recurrent left knee instability Generalized anxiety disorder Left knee pain Frequent falls Anxiety and depression Glaucoma Impaired fasting glucose Hx of migraine headaches Pain of left calf Ocular migraine Hearing loss Mammogram declined Colonoscopy refused Obsessive-compulsive disorder Menopause Dyslipidemia Acquired hypothyroidism Surgical History No pertinent past surgical history Family History Family History Father Substance use disorder Brother Substance use disorder Brother Substance use disorder Social History Social History Household Members: None Housing: Other Housing Other:: independent living (in own apartment) Do you presently have visiting nurse or other home services: No Alcohol intake: never Patient Tobacco Use Status: Never used Tobacco Smoked in Last 30 Days: No e-Cigarette/Vaping Use: Never Used Use of substances other than those prescribed or required for medical reasons: No Advance Directives: Yes Advance Directives on File: Yes Advance Directives Date on File: 03/11/23 Do you have a plan to hurt others: No Plan service: No Current occupational status: retired Cognitive needs: No Hearing needs: Yes Vision needs: Yes Physical Exam Exam: Exam: GENERAL: Ill-Appearing, appears uncomfortable. SKIN: Normal skin color for ethnicity, warm, dry, no rashes noted. HEENT:? Normocephalic, multiple facial contusions overlying the bilateral frontal scalp, no stridor, dry mucous membranes, dentition intact, EOMI, PERRLA, no facial tenderness to palpation. NECK: Soft, supple, full ROM, midline structures nontender, no step-offs, no deformities, no lymphadenopathy. CHEST: Heart regular tachycardia, no murmurs, symmetric chest rise and fall, tender to palpation overlying the bilateral lateral ribcage, no crepitus. PULMONARY: Clear to auscultation bilaterally, diminished at the bases, no labored breathing, no wheezes/rhales/rhonchi. ABDOMINAL: Soft, nondistended, nontender, positive bowel sounds in all quadrants. : Deferred. MUSCULOSKELETAL: Normal tone, limited range of motion of the bilateral knees secondary to pain, ecchymosis overlying the right knee and proximal lower leg, superficial abrasions, neurovascularly intact distally, no deformities, no peripheral edema. NEURO: Alert and oriented to person, CN II through XII intact, equal strength and sensation bilateral upper and lower extremities, no focal neurologic deficits.? PSYCHIATRIC: Flat affect, fluid speech, good eye contact and appropriate demeanor. Vital Signs: Vital Signs: Last Vital Signs Temp 97.6 F 09/17/25 06:00 Pulse 81 09/17/25 06:00 Resp 18 09/17/25 06:00 BP 127/63 09/17/25 06:00 Pulse Ox 96 09/17/25 06:00 O2 Del Method Room Air 09/17/25 06:00 BMI result Body Mass Index 25.2 Course Course Course Narrative: Time: 08:22 Date: 09/16/25 Provider: HUSSAIN Cervantes Patient in physician observation for case management needs. No acute events reported overnight.? No current issues or complaints. VS stable. Patient is PT/CM eval. Will continue to monitor. Reevaluation(s) Reevaluation #1: Time: 08:38 Date: 09/17/25 Provider: Ashli Jon PA-C Patient in physician observation for case management needs. No acute events reported overnight.? No current issues or complaints. VS stable. [facility] this morning. Will continue to monitor patient as they await transportation for STR. Time: 08:38 Medications Administered Generic Name Dose Route Start Last Admin Trade Name Freq PRN Reason Stop Dose Admin Acetaminophen 650 mg 09/15/25 16:20 09/17/25 08:23 Acetaminophen 325 Mg Tablet PO 650 mg Q8H PRN Administration fever or pain Atorvastatin Calcium 20 mg 09/15/25 21:00 09/16/25 21:13 Atorvastatin Calcium 20 Mg Tablet PO 20 mg BEDTIME BRIT Administration Fluoxetine HCl 80 mg 09/16/25 09:00 09/17/25 08:23 Fluoxetine Hcl 20 Mg Capsule PO 80 mg DAILY BRIT Administration Ibuprofen 600 mg 09/15/25 16:11 09/16/25 10:48 Ibuprofen 600 Mg Tablet PO 600 mg Q8H PRN Administration fever or pain Levothyroxine Sodium 88 mcg 09/16/25 06:30 09/16/25 04:55 Levothyroxine Sodium 88 Mcg Tablet PO 88 mcg DAILY@0630 BRIT Administration Timolol Maleate 1 drop 09/16/25 09:00 09/16/25 10:44 Timolol Maleate 0.5 % Oph Fadumo 5 Ml Drbtl EYE-BOTH Not Given DAILY BRIT Vitamin D 25 mcg 09/16/25 09:00 09/17/25 08:23 Cholecalciferol (Vitamin D3) 25 Mcg Tablet PO 25 mcg DAILY BRIT Administration Discontinued Medications Generic Name Dose Route Start Last Admin Trade Name Freq PRN Reason Stop Dose Admin Acetaminophen 650 mg 09/15/25 11:37 09/15/25 12:00 Acetaminophen 325 Mg Tablet PO 09/15/25 11:38 650 mg ONCE ONE Administration Acetaminophen 1,000 mg in 100 mls @ 400 mls/hr 09/14/25 21:35 09/14/25 23:40 Ofirmev IV 09/14/25 21:49 Infused ONCE ONE Infusion Lactated Ringer's 1,000 mls @ 999 mls/hr 09/14/25 21:35 09/14/25 23:40 Lr IV 09/14/25 22:35 Infused .Q1H1M ONE Infusion Lactated Ringer's 1,000 mls @ 999 mls/hr 09/15/25 03:17 09/15/25 05:15 Lr IV 09/15/25 04:17 Infused .Q1H1M ONE Infusion Ibuprofen 600 mg 09/15/25 03:17 09/15/25 03:52 Ibuprofen 600 Mg Tablet PO 09/15/25 03:18 600 mg ONCE ONE Administration Iohexol 100 ml 09/14/25 22:13 09/14/25 22:17 Iohexol 350 Mg/Ml 100 Ml Infus..Btl IV 09/14/25 22:14 85 ml ONCE ONE Administration Medical Decision Making Medical Decision Making MDM Narrative: Patient presents today with chief complaint of trauma in the setting of the COVID-19 infection. Different diagnosis on this patient includes intracranial hemorrhage, skull fracture, neck injury including fracture or spinal cord pathology. Other diagnoses considered would include chest or abdominal trauma as well as long bone fractures. Based on my physical exam, the ordered imaging modalities are indicated. The patient specifically does not show any signs of central cord syndrome as evidenced by equal strength in the upper extremities with normal two-point discrimination. Sensation is not altered. GCS is appropriate. Patient is neurovascularly intact. There are no signs of vascular emergency. No signs of shock. No respiratory distress. Patient has a relatively high fever of 103.5?. She has known COVID-19 but due to her fever and altered mental status, she is meeting SIRS criteria. I suspect most of her clinical picture is due to a viral infection but will rule out concurrent bacterial infection as well. Imaging and urinalysis pending. Patient was given IV Tylenol for pain and fever control. Workup reassuring at this time. No evidence of acute traumatic injury. She does have a contusion on her forehead and bilateral knees but otherwise has been resting comfortably. She has chronic shoulder pain which has been an issue. Patient remains globally weak, feels as though she can not really walk due to this. Blood pressure remained stable. She is not septic. Fever improved after Tylenol. 7:53 AM 09/15/2025 (Dr. Belem Morris, D.O.) signing out to oncoming team pending case management and physical therapy consults. Time: 16:07 Date: 09/15/25 Provider: HUSSAIN Horn Patient in physician observation for case management needs. Patient pending case management and PT. We will continue to monitor pending please workups. Differential Diagnosis Differential Diagnoses: The differential diagnosis associated with the presentation includes (As above) Admission/Observation Consideration of admission/observation: Escalation of care including admission/observation considered Lab Data MDM Lab Attestation statement: I reviewed the patient's lab results. 09/14/25 21:28 09/14/25 21:28 Labs: Lab Results 09/14/25 09/14/25 09/15/25 Range/Units 21:28 21:41 00:05 WBC 7.2 (4.8-10.8) X10*3/uL RBC 3.76 L (4.20-5.50) X10*6/uL Hgb 12.0 (12.0-16.0) g/dl Hct 35.7 L (37.0-47.0) % MCV 94.9 (80.0-98.0) fL MCH 31.9 (27.0-33.0) pg MCHC 33.6 (31.0-35.0) g/dl RDW 12.0 (11.0-16.0) % Plt Count 177 (160-400) X10*3/uL MPV 9.9 (9.4-12.3) fL Immature Gran % (Auto) 0.6 H (0.0-0.4) % Neut % (Auto) 86.6 H (45-73) % Lymph % (Auto) 4.6 L (20-40) % Rankin % (Auto) 8.0 (2-11) % Eos % (Auto) 0.1 (0-4) % Baso % (Auto) 0.1 (0-2) % Lymph # (Auto) 0.3 L (1.2-4.9) X10*3/uL Rankin # (Auto) 0.6 (0.1-1.2) X10*3/uL Eos # (Auto) 0.0 (0.0-0.4) X10*3/uL Baso # (Auto) 0.0 (0.0-0.2) X10*3/uL Abs Immat Gran (auto) 0.04 H (0.00-0.03) X10*3/uL Absolute Neuts (auto) 6.2 (2.0-8.3) x10*3/uL Absolute Nucleated RBC 0.000 (0.0-0.012) X10*3/uL Nucleated RBC % (auto) 0.0 (0.0-0.2) /100WBC PT 13.5 H (10.9-12.4) SEC INR 1.2 H (0.9-1.1) Sodium 133 L (135-145) mmol/L Potassium 3.5 D (3.3-5.1) mmol/L Chloride 99 (96-108) mmol/L Carbon Dioxide 23 (22-29) mmol/L Anion Gap 15 (12-20) BUN 11 (9-16) mg/dL Creatinine 0.74 (0.5-1.4) mg/dL Estim Creat Clear Calc 51.2 Estimated GFR > 60 Random Glucose 129 H (60-115) mg/dL Lactic Acid 1.5 (0.5-2.0) mmol/L Calcium 8.5 D (8.4-10.2) mg/dL Magnesium 1.8 (1.6-2.6) mg/dL Total Bilirubin 0.6 (0.0-1.0) mg/dL AST 45 H (5-31) U/L ALT 26 (0-31) U/L Alkaline Phosphatase 72 (39-117) U/L Troponin I High Sens 11.4 (<3.5-17.0) ng/L Total Protein 6.5 (6.5-8.0) g/dL Albumin 4.0 (3.5-5.0) g/dL Urine Color Yellow Urine Appearance Clear Urine pH 5.5 (5.0-9.0) Ur Specific [place] >= 1.030 H (1.005-1.025) Urine Protein Trace (Neg-Trace) mg/dL Urine Glucose (UA) Negative (Negative) mg/dL Urine Ketones Trace (Negative) mg/dL Urine Blood Moderate (2+) H (Negative) Urine Nitrite Negative (Negative) Ur Leukocyte Esterase Small (1+) H (Negative) Urine RBC 0-2 (0-2) /HPF Urine WBC 6-10 H (0-5) /HPF Ur Squamous Epith Cells 0-2 (0-2) /HPF Urine Bacteria None Seen (None Seen) Hyaline Casts 3-5 (0-2) /LPF C. difficile Tox B Gene (Negative) COVID-19 (EARLENE) Positive A (Negative) COVID-19 Clin Com See Note Influenza Type A (DELIO) Negative (Negative) Influenza Type B (DELIO) Negative (Negative) Influenza A & B Note See Note 09/16/25 Range/Units 22:48 WBC (4.8-10.8) X10*3/uL RBC (4.20-5.50) X10*6/uL Hgb (12.0-16.0) g/dl Hct (37.0-47.0) % MCV (80.0-98.0) fL MCH (27.0-33.0) pg MCHC (31.0-35.0) g/dl RDW (11.0-16.0) % Plt Count (160-400) X10*3/uL MPV (9.4-12.3) fL Immature Gran % (Auto) (0.0-0.4) % Neut % (Auto) (45-73) % Lymph % (Auto) (20-40) % Rankin % (Auto) (2-11) % Eos % (Auto) (0-4) % Baso % (Auto) (0-2) % Lymph # (Auto) (1.2-4.9) X10*3/uL Rankin # (Auto) (0.1-1.2) X10*3/uL Eos # (Auto) (0.0-0.4) X10*3/uL Baso # (Auto) (0.0-0.2) X10*3/uL Abs Immat Gran (auto) (0.00-0.03) X10*3/uL Absolute Neuts (auto) (2.0-8.3) x10*3/uL Absolute Nucleated RBC (0.0-0.012) X10*3/uL Nucleated RBC % (auto) (0.0-0.2) /100WBC PT (10.9-12.4) SEC INR (0.9-1.1) Sodium (135-145) mmol/L Potassium (3.3-5.1) mmol/L Chloride (96-108) mmol/L Carbon Dioxide (22-29) mmol/L Anion Gap (12-20) BUN (9-16) mg/dL Creatinine (0.5-1.4) mg/dL Estim Creat Clear Calc Estimated GFR Random Glucose (60-115) mg/dL Lactic Acid (0.5-2.0) mmol/L Calcium (8.4-10.2) mg/dL Magnesium (1.6-2.6) mg/dL Total Bilirubin (0.0-1.0) mg/dL AST (5-31) U/L ALT (0-31) U/L Alkaline Phosphatase (39-117) U/L Troponin I High Sens (<3.5-17.0) ng/L Total Protein (6.5-8.0) g/dL Albumin (3.5-5.0) g/dL Urine Color Urine Appearance Urine pH (5.0-9.0) Ur Specific [place] (1.005-1.025) Urine Protein (Neg-Trace) mg/dL Urine Glucose (UA) (Negative) mg/dL Urine Ketones (Negative) mg/dL Urine Blood (Negative) Urine Nitrite (Negative) Ur Leukocyte Esterase (Negative) Urine RBC (0-2) /HPF Urine WBC (0-5) /HPF Ur Squamous Epith Cells (0-2) /HPF Urine Bacteria (None Seen) Hyaline Casts (0-2) /LPF C. difficile Tox B Gene NEGATIVE (Negative) COVID-19 (EARLENE) (Negative) COVID-19 Clin Com Influenza Type A (DELIO) (Negative) Influenza Type B (DELIO) (Negative) Influenza A & B Note Independent Interpretation I performed an independent interpretation of an: EKG Interpretation: My independent interpretation of the ECG reveals normal sinus rhythm with rate of 76, left axis deviation, bifascicular block, right bundle branch block, left anterior fascicular block, no ST elevations or depressions to suggest ischemic changes, relatively unchanged from previous on 12/28/2022. Radiology Impression Discussion of test interpretation with radiology: I have reviewed the radiologist's reading. Independent Historian Clinical information obtained from an independent historian. History obtained from or confirmed by: EMS External Record Review External record reviewed: Inpatient record Discharge Plan Discharge Clinical Impression: COVID-19, Generalized muscle weakness, Falls frequently, Traumatic hematoma of forehead, Contusion of left knee, Recurrent instability of left knee joint Patient Disposition: Xfer Inpatient Rehab Fac Transfer Details: TO: [facility] Instructions: Weakness (ED), Facial Contusion (ED), COVID-19 (Coronavirus Disease 2019) (ED), How to Recover from COVID-19 at Home (ED) Prescriptions: No Action atorvastatin 20 mg tablet 20 mg PO BEDTIME Qty: 90 1RF fluoxetine 40 mg capsule 80 mg PO DAILY Qty: 180 1RF levothyroxine 88 mcg tablet 88 mcg PO DAILY@0630 Qty: 90 1RF cholecalciferol (vitamin D3) [Vitamin D3] 25 mcg (1,000 unit) Tablet 25 mcg PO DAILY ibuprofen 600 mg tablet 600 mg PO Q8H PRN (Reason: fever or pain) Qty: 30 0RF acetaminophen 500 mg capsule 1,000 mg PO .q8 PRN (Reason: fever or pain) Qty: 30 0RF timolol maleate 0.5 % drops 1 drp ophthalmic (eye) DAILY Referrals: [facility] [Outside] Referral Note: [phone] Ivy Lee MD [Primary Care Provider, Internal Medicine] Print Language: Cypriot
[2025-09-14 21:17] VITALS: TEMP 39.7
[2025-09-14 21:34] LABS: MANUAL DIFF FLAG NO
[2025-09-14 21:35] LABS: Hematocrit 35.7 % (37.0-47.0); Hemoglobin 12.0 g/dl (12.0-16.0); Imm Gran Abs Auto 0.04 X10*3/uL (0.00-0.03); Imm Gran Pct Auto 0.6 % (0.0-0.4); Lymphocytes Absolute Auto 0.3 X10*3/uL (1.2-4.9); Mean Corpuscular HGB Conc 33.6 g/dl (31.0-35.0); Mean Corpuscular Hemoglobin 31.9 pg (27.0-33.0); Mean Corpuscular Volume 94.9 fL (80.0-98.0); NRBC Abs Auto 0.000 X10*3/uL (0.0-0.012); NRBC Pct Auto 0.0 /100WBC (0.0-0.2); Platelet Count 177 X10*3/uL (160-400); Red Blood Count 3.76 X10*6/uL (4.20-5.50); White Blood Count 7.2 X10*3/uL (4.8-10.8)
[2025-09-14 21:40] LABS: INTERNATIONAL NORM RATIO 1.2 (0.9-1.1); Prothrombin Time 13.5 SEC (10.9-12.4)
[2025-09-14 21:49] LABS: Alanine Aminotransferase 26 U/L (0-31); Albumin Level 4.0 g/dL (3.5-5.0); Alkaline Phosphatase 72 U/L (39-117); Anion Gap 15 (12-20); Aspartate Amino Transferase 45 U/L (5-31); Blood Urea Nitrogen 11 mg/dL (9-16); Calcium 8.5 mg/dL (8.4-10.2); Carbon Dioxide 23 mmol/L (22-29); Chloride 99 mmol/L (96-108); Creatinine Clr Calc Pharmacy 51.2; Estimated Glomerular Filt Rate > 60; Magnesium 1.8 mg/dL (1.6-2.6); Potassium 3.5 mmol/L (3.3-5.1); Sodium 133 mmol/L (135-145); Total Protein 6.5 g/dL (6.5-8.0)
[2025-09-14] MEDS: Lactated Ringers 1,000 ML 999 ML IV (21:53)
--- OUTSIDE RECORDS SUMMARY | 2025-09-14 21:55 | XMS_ITS | Patient Health Record ---
Author Organization [facility] Address [address] [place] [address] Care Team Providers Care Independent Freight Agent Name Role Phone Jennifer Augustin NP Primary Care Provider U Jeff Boothe Unavailable [phone] Allergies Allergen (clinical drug ingredient) Drug/Non Drug [...] Packs 240 GM as directed Orally as directed; Duration: 1 day(s) 01/05/2015 Active FLUoxetine HCl Activ e Levothyroxine Sodium Active Atorvastatin Calcium Active Timolol Maleate Acti ve Benadryl Active Problems Problem Type SNOMED Code ICD Code Onset Dates Problem Status W/U Status Risk Notes Problem Colon cancer screening (288358162) Colon cancer screening (V76.51) Active confirmed Problem History of adenomatous polyp of colon (693099525) History of adenomatous polyp of colon (V12.72) Active confirmed Problem Long-term use of aspirin therapy (V58.66) Active confirmed Plan Of Treatment Future Test Test Name Order Date COLONOSCOPY 01/01/2015 Insurance Providers Payer Name Payer Address Payer Phone Subscriber Number Group Number Insured Name Patient Relationship to Insured Coverage Start Date Coverage End Date [place]ARE [place] [address] [place] [address] [phone] [id number] JENARO TIWARI Self - patient is the insured EBPA [address] [place] [id number] JENARO TIWARI Self - patient is the insured Medical (General) History Medical History History ICD Code Screening colonoscopy 18-2 006-1 small tubular adenoma removed, sigmoid diverticulosis, internal hemorrhoids Hypothyroidism hyperlipidemia obsessive compulsive disorder Denies NM,DM,CVA,Lung disease,renal dise ase Negative cardiac cath in 08/2014 Surgical History Surgery Date(Month/Year) Pilonidal cyst removal Left carpal tunnel
[2025-09-14 21:56] LABS: Troponin-I High Sensitivity 11.4 ng/L (<3.5-17.0)
[2025-09-14 22:12] LABS: COVID-19 Test Positive (Negative); IDNOW Serial# 152EDE1D; IDNOW Serial# 16C4AD1C; Influenza B2 Negative (Negative)
[2025-09-14] MEDS: iohexoL 350 MG/ML 100 ML INFUS..BTL IV (22:17)
[2025-09-14 22:49] VITALS: BP 128/52; PULSE 79; RESP 12; TEMP 39.3; O2SAT 94
--- NOTE | 2025-09-14 23:12 | PC.NURSE ---
Pt's friend Estefani Delgado called asking for update, information given, Estefani greene phone number [phone]
[2025-09-14 23:40] VITALS: BP 117/43; PULSE 74; RESP 12; TEMP 38.6; O2SAT 96
[2025-09-15 00:13] LABS: Appearance Urine Clear; Glucose Urine UA Negative (Negative); PH 5.5 (5.0-9.0); Specific Gravity - Urine >= 1.030 (1.005-1.025); UMIC TRIGGER UACC YES
[2025-09-15 00:35] LABS: UACC Culture Trigger YES
[2025-09-15] MEDS: Lactated Ringers 1,000 ML 999 ML IV (03:52)
[2025-09-15 03:53] VITALS: BP 128/56; PULSE 70; RESP 14; TEMP 38; O2SAT 96
[2025-09-15 06:25] VITALS: BP 125/53; PULSE 71; RESP 19; TEMP 36.8
[2025-09-15 09:10] VITALS: BP 109/55; PULSE 67; RESP 12; TEMP 37.5; O2SAT 96
--- NOTE | 2025-09-15 12:00 | PC.NURSE ---
Pt temp noted to increase to 100.0- PA Kathie made aware. Medicated with tylenol per MAR to prevent increasing temp. Pt transferred into hospital bed- able to stand/pivot with assistance from this RN. Call dejesus within reach, all needs met at this time.
[2025-09-15 12:34] VITALS: BP 140/60; PULSE 71; RESP 21; O2SAT 92
--- NOTE | 2025-09-15 15:05 | MHC.CM.ED ---
Received ED consult for assessment of d/c needs: Met with pt who states she is independent with all ADL's, drives, uses a cane on occassion and has no services. She states she was feeling weak and unbalanced - found to be COVID + without hypoxia. PT eval pending and will occur on Tuesday, 09/16. Pt aware she will hold in the ED until the eval and a d/c plan can then be finalized. No referrals made per pt request. Pt will have transportation to home. HCP copy requested. ED CM to follow.
--- NOTE | 2025-09-15 16:39 | PHA.MEDREC ---
Pharmacy Consult ? Medication Reconciliation RN has completed the medication reconciliation. Pharmacy reviewed
[2025-09-15 19:17] VITALS: BP 112/46; PULSE 72; RESP 17; TEMP 36.8; O2SAT 95
[2025-09-15 21:10] VITALS: BP 121/65; PULSE 70; RESP 16; TEMP 37.2; O2SAT 95
[2025-09-16 06:16] VITALS: BP 142/71; PULSE 67; RESP 14; TEMP 36.8; O2SAT 97
--- NOTE | 2025-09-16 09:58 | MHC.CM.ED ---
Patient remains in ER overflow. Physical therapy eval completed. Short term rehab is recommended. Patient has not had a QHS. Patient has [employer] as a secondary insurance. Anticipate patient will be diffiult to place d/t +Covid. Referral will be broadcasted locally. Bed offers will be discussed with patient. Continue to monitor for d/c needs.
--- NOTE | 2025-09-16 11:08 | MHC.CM.ED ---
Met with patient to discuss bed offers. Patient declining STR at this time. Also declining VNA. Patient will call someone for a ride home. Kera VALDIVIA and Susan NIXON aware. Continue to monitor for d/c needs.
--- NOTE | 2025-09-16 12:26 | PC.NURSE ---
Patient initially declined rehab placement. Spoke with sister (Mere Williamson) by phone, who later came to bedside to visit the patient. COVID/isolation precautions in place since 09/14/2025. Upon speaking with Mere, the patient agreed to rehab placement. Cyndie Solano (Behavioral Analyst) aware. Has available bed at [facility] in [place], [place]. Likely placement tomorrow. Patient agreeable to this plan. Care ongoing by this RN.
--- NOTE | 2025-09-16 12:28 | MHC.CM.ED ---
Met with patient and friend, Mere, in regards to discharge planning. Patient is now agreeable to STR. [facility], [facility] and [facility] are able to offer a bed. Patient accepts bed at [facility]. MDS and Level 1 will be sent to [facility] and [facility]. Continue to monitor for d/c needs.
--- NOTE | 2025-09-16 14:16 | PC.NURSE ---
vs at 1330 98.1-93-20, 144/64, 95%
[2025-09-16 14:17] VITALS: BP 144/66; PULSE 93; RESP 20; TEMP 36.7; O2SAT 95
--- NOTE | 2025-09-16 15:47 | MHC.CM.ED ---
Patient booked to transfer to [facility] tomorrow 09/17 at 10am. Leena REDD booked. Med nec with chart. Patient, Kera VALDIVIA and Susan NIXON aware. Continue to monitor for d/c needs.
[2025-09-16 21:31] VITALS: BP 144/76; PULSE 72; RESP 17; TEMP 36.6; O2SAT 96
[2025-09-16 23:53] LABS: CDiff Gene PCR NEGATIVE (Negative)
[2025-09-17 06:00] VITALS: BP 127/63; PULSE 81; RESP 18; TEMP 36.4; O2SAT 96
--- NOTE | 2025-09-17 10:41 | PC.NURSE ---
[facility] bedside [facility] Patient requested to use bedside commode prior to transfer.
[2025-09-17 11:20] LABS: E. coli EAEC Not Detected (Not Detect.); E. coli EPEC Not Detected (Not Detect.); E. coli ETEC Not Detected (Not Detect.); E. coli STEC Not Detected (Not Detect.); Shigella sp./EIEC Not Detected (Not Detect.)
== END 2025-09-17 10:42 ==
PROVIDERS: Physician Assistant; Emergency Provider Emergency Medicine; PCP Internal Medicine
DX: U07.1 COVID-19 (principal); M62.81 Muscle weakness (generalized); S80.02XA Contusion of left knee, initial encounter; S00.83XA Contusion of other part of head, initial encounter; M25.362 Other instability, left knee; W18.30XA Fall on same level, unspecified, initial encounter; Z91.81 History of falling; Y93.89 Activity, other specified; Y92.098 Other place in other non-institutional residence as the place of occurrence of the external cause; Y99.8 Other external cause status; Z79.899 Other long term (current) drug therapy
CPT/HCPCS: 36415; 70450; 71260; 72125; 73562; 74177; 80053; 81001; 83605; 83735; 84484; 85025; 85610; 87040; 87086; 87493; 87502; 87507; 87635; 93005; 96361; 96365; 96366; 97161; 97162; 99285; J0131; J7120; Q9967

== ENCOUNTER → 2025-09-14 21:11 | Outpatient (BNV) | payer MEDICARE, MEDICAID, SELFPAY | PROVIDERS: Emergency Provider Emergency Medicine; PCP Internal Medicine; Visit Provider Internal Medicine Cardiovascular Disease | DX: I45.2 Bifascicular block (principal) | CPT/HCPCS: 93010 ==

== ENCOUNTER → 2025-09-14 21:13 | Outpatient (BNV) | payer MEDICARE, MEDICAID, SELFPAY | PROVIDERS: Emergency Provider Emergency Medicine; PCP Internal Medicine; Visit Provider Radiology Diagnostic Radiology | DX: Z04.3 Encounter for examination and observation following other accident (principal) | CPT/HCPCS: 71260; 74177 ==

== ENCOUNTER → 2025-09-15 01:36 | Outpatient (BNV) | payer MEDICARE, MEDICAID, SELFPAY | PROVIDERS: Emergency Provider Emergency Medicine; PCP Internal Medicine; Visit Provider Radiology Diagnostic Radiology | DX: Z04.3 Encounter for examination and observation following other accident (principal) | CPT/HCPCS: 73562 ==

== ENCOUNTER 2025-10-07 13:05 | Outpatient (AMB) | payer MEDICARE, MEDICAID, SELFPAY ==
--- NOTE | 2025-10-07 14:10 | A.OFFPC_ITS ---
Vital Signs 10/07/25 14:16 Height 5 ft 4 in Weight 141 lb BMI 24.2 BP 128/70 Blood Pressure Location Lt brachial Position Sitting Respiration 16 Pulse 77 Pulse Source Pulse Oximeter Temp 98.2 F Temp Source Oral Pulse Oximetry (%) 94 Oxygen Delivery Method Room Air Intake Visit Reasons: HDF need vna referral Intake Note: Pt is here today for her HDF Director Public Required: No Allergies No Known Allergies Allergy (Verified 10/07/25 14:32) Medication List - Last Reconciled 10/07/25 by Ivy Lee MD acetaminophen 1,000 mg (2 x 500 mg) PO .q8 PRN atorvastatin 20 mg PO BEDTIME cholecalciferol (vitamin D3) (Vitamin D3) 25 mcg PO DAILY fluoxetine 80 mg (2 x 40 mg) PO DAILY ibuprofen 600 mg PO Q8H PRN levothyroxine 88 mcg PO DAILY@0630 timolol maleate 0.5% 1 drp ophthalmic (eye) DAILY Tobacco use date assessed: 10/07/25 Fall risk assessment: 2 + Falls in past year Last assessed Fall Risk: 10/07/25 Dental Screening Dental Screen Date: 10/07/25 Did you have a dental visit in the last 12 months?: Yes Did you have a dental problem in the last 6 months where you did not have access to dental care?: No Was dental information given to patient?: Patient has dentist HPI HDF need vna referral HPI Details The patient is an 85-year-old female presenting for a follow-up visit after a fall and rehabilitation stay, and to request a referral for home care services. She reports a recent fall at home and now uses a walker, which is helping. She believes the fall may have been caused by weakness from a COVID-19 infection, which was diagnosed during her subsequent rehabilitation stay. The COVID-19 infection was characterized by a high fever but no significant congestion or severe body aches. Her vaccination history includes an influenza shot and a COVID-19 shot in July prior to the fall, as well as prior shingles and RSV vaccinations. Her current medications include Tylenol, atorvastatin, vitamin D, fluoxetine (Prozac), levothyroxine 88 mcg, and eye drops, with ibuprofen taken as needed. Recent lab work showed slightly low sodium, normal kidney function, and slightly elevated liver enzymes from an September 14 ER visit. Her last cholesterol test was good and her last thyroid test was normal. She has been experiencing constipation lately. [facility] Medical History Fracture of orbital floor with routine healing Hip pain, left Frequent falls Recurrent left knee instability Generalized anxiety disorder Left knee pain Frequent falls Anxiety and depression Glaucoma Impaired fasting glucose Hx of migraine headaches Pain of left calf Ocular migraine Hearing loss Mammogram declined Colonoscopy refused Obsessive-compulsive disorder Menopause Dyslipidemia Acquired hypothyroidism Surgical History No pertinent past surgical history Family History Father Substance use disorder Brother Substance use disorder Brother Substance use disorder Social History Household Members: None Housing: Other Housing Other:: independent living (in own apartment) Do you presently have visiting nurse or other home services: No Alcohol intake: never Patient Tobacco Use Status: Never used Tobacco e-Cigarette/Vaping Use: Never Used Advance Directives Date on File: 09/17/25 service: No Current occupational status: retired Cognitive needs: No Hearing needs: Yes Vision needs: Yes Questionnaire PHQ-9 Over the last 2 weeks, how often have you been bothered by any of the following problems? 1. Little interest or pleasure in doing things: not at all 2. Feeling down, depressed, or hopeless: not at all 3. Trouble falling or staying asleep, or sleeping too much: several days 4. Feeling tired or having little energy: several days 5. Poor appetite or overeating: not at all 6. Feeling bad about yourself - or that you are a failure or have let yourself or your family down: not at all 7. Trouble concentrating on things, such as reading the newspaper or watching television: not at all 8. Moving or speaking so slowly that other people could have noticed. Or the opposite - being so fidgety or restless that you have been moving around a lot more than usual: not at all 9. Thoughts that you would be better off or of hurting yourself in some way: not at all Total score: 2 Depression Screening Interpretation: Negative Depression Screening Done: Yes Source: Developed by Anjelica Child Kurt Kroenke and colleagues, with an educational lauren from [employer]. Thrive Questionnaire Date Thrive assessed: 07/16/25 I am a: Patient What is your living situation today?: I have a steady place to live Within the past 12 months, did the food you bought not last and you didn't have the money to get more?: Never true Within the past 12 months, did you worry whether your food would run out before you got money to buy more?: Never true Do you have trouble paying for medicines?: No Do you have trouble getting transportation to medical appointments?: No Do you have trouble paying your heating and electricity bill?: No Do you have trouble taking care of your child, family member or friend?: No Do you have trouble with day-to-day activities such as bathing, preparing meals, shopping, managing finances, etc.?: No Are you currently unemployed and looking for a job?: No Are you interested in more education?: No Currently or been in a relationship where the following occur: No concerns reported THRIVE Score: 0 AUDIT C Alcohol Use Questionnaire (AUDIT-C) 1. How often do you have a drink containing alcohol?: Never 3. How often do you have six or more drinks on one occasion?: Never Total Score: 0 Score Reviewed/Action Taken: Yes ANJANA-7 AMB Questionnaire ANJANA-7 Date ANJANA - 7 assessed: 10/07/25 Feeling nervous, anxious, or on edge: 0 = Not at all Not being able to stop or control worryin = Not at all Worrying too much about different things: 0 = Not at all Trouble relaxin = Not at all Being so restless that it is hard to sit still: 0 = Not at all Becoming easily annoyed or irritable: 0 = Not at all Feeling afraid as if something awful might happen: 0 = Not at all Total ANJANA-7 score (0-4 normal; 5-9 mild; 10-14 moderate; 15-21 severe): 0 Source: Developed by Anjelica Child Kurt Kroenke and colleagues, with an educational lauren from [employer]. ANJANA-7 Assessment Billing ANJANA-7 Assessment Tool: ANJANA-7 Assessment 01901 Review of Systems Const All systems reviewed & are unremarkable except as noted in HPI and below Physical exam (Primary Care) Vital Signs: Last Vital Signs Temp 98.2 F 10/07/25 14:16 Pulse 77 10/07/25 14:16 Resp 16 10/07/25 14:16 BP 128/70 10/07/25 14:16 Pulse Ox 94 10/07/25 14:16 Oxygen Delivery Method Room Air 10/07/25 14:16 BMI result Body Mass Index 24.2 Tobacco/Smoking Status: Tobacco use Status Tobacco use date assessed 10/07/25 10/07/25 14:13 Patient Tobacco Use Status Never used Tobacco 10/07/25 14:13 e-Cigarette/Vaping Use Never Used 10/07/25 14:13 PHQ-9: PHQ-9 Score PHQ-9: Total score 2 10/13/25 18:20 Depression Screening Interpretation: Negative Thrive Assessment: Date of Thrive Assessment Date Thrive assessed 07/16/25 10/07/25 14:13 Currently or been in a relationship where the following occur: No concerns reported Const Other: Elderly lady looks younger than stated age, Alert oriented x3, no acute car diorespiratory distress, ambulatory with normal gait HENIA Other: Healing laceration over right temporal area and resolving ecchymosis overlying right cheek. No tenderness on palpation over facial bones Head: Yes normal to inspection and Yes normocephalic Ears: external ears normal General nose exam: Normal external nose present Face and sinus: Yes face symmetric Mouth: tongue normal, oropharynx normal and moist mucous membranes Eyes General: appearance normal, both eyes and all related structures Pupils: Equal, round and reactive pupils present EOM: EOMs intact bilaterally Neck Neck: Yes full ROM, Yes no lymphadenopathy and Yes supple Thyroid: Thyroid normal Chest Chest palpation & inspection: normal inspection of the chest and normal palpation of entire chest wall Resp Effort & Inspection: normal respiratory effort, able to speak in complete sentences, no cough and no retractions Cardio Rate: regular rate Rhythm: regular rhythm Heart sounds: S1 normal heart sound present GI Palpation (GI): Soft to palpation, nontender, no guarding and no masses Auscultation: normal bowel sounds General: Yes no CVA tenderness Back/Spine/Pelvis Back: no CVA tenderness and No back tenderness Skin Other: Healing laceration over right temporal area and resolving ecchymosis overlying right cheek. Neuro Cranial nerves: Yes Equal, round and reactive pupils present Cognition (Neuro): normal cognition Extrem Other: Slight tenderness on palpation over lateral aspect left hip General: Yes full ROM, Yes no joint enlargement and Yes no calf tenderness Psych Appearance: grossly normal and well kempt Mental Status: mental status grossly normal Speech and movement: Normal speech and movement present Affect: normal affect Results Reviewed Results Reviewed: Name: Estefani Ceron Age/Sex: 85/F : 1940 Unit#: [id number] Attend Dr: Belem Morris DO Re09/14/25 Status: [facility]: SPEC : [id number] NANO: 09/14/25 STATUS: COMP REQ : [id number] RECD: 09/14/[address]: Belem Morris DO COMP: 09/14/25 ENTERED: 09/14/[address] [facility] [address]: ORDERED: CBC Auto Diff Test Result Flag Reference WBC 7.2 4.8-10.8 X10*3/uL RBC 3.76 L 4.20-5.50 X10*6/uL HGB 12.0 12.0-16.0 g/dl HCT 35.7 L 37.0-47.0 % MCV 94.9 80.0-98.0 fL MCH 31.9 27.0-33.0 pg MCHC 33.6 31.0-35.0 g/dl RDW 12.0 11.0-16.0 % PLT 177 160-400 X10*3/uL MPV 9.9 9.4-12.3 fL Neut Pct Auto 86.6 H 45-73 % ImGran Pct Auto 0.6 H 0.0-0.4 % Lymp Pct Auto 4.6 L 20-40 % Bracken Pct Auto 8.0 2-11 % Eos Pct Auto 0.1 0-4 % Baso Pct Auto 0.1 0-2 % NRBC Pct Auto 0.0 0.0-0.2 /100WBC ANC Neut Abs # 6.2 2.0-8.3 x10*3/uL ImGran Abs Auto 0.04 H 0.00-0.03 X10*3/uL Lymph Abs Auto 0.3 L 1.2-4.9 X10*3/uL Bracken Abs Auto 0.6 0.1-1.2 X10*3/uL Eos Abs Auto 0.0 0.0-0.4 X10*3/uL Baso Abs Auto 0.0 0.0-0.2 X10*3/uL NRBC Abs Auto 0.000 0.0-0.012 X10*3/uL Name: Estefani Ceron Age/Sex: 85/F : 1940 Unit#: [id number] Attend Dr: Belem Morris DO Re09/14/25 Status: DEP ER Location: [facility] Disch: SPEC : [id number] NANO: 09/14/25 STATUS: COMP REQ : [id number] RECD: 09/14/[address]: Belem Morris DO COMP: 09/14/25 ENTERED: 09/14/[address]: ORDERED: CMP, MG Test Result Flag Reference Sodium 133 L 135-145 mmol/L Potassium 3.5 # 3.3-5.1 mmol/L CL 99 96-108 mmol/L CO2 23 22-29 mmol/L Gap 15 12-20 BUN 11 9-16 mg/dL Creat 0.74 0.5-1.4 mg/dL Estimated CrCl 51.2 Provided height and weight: 162.56 cm, 66.5 kg. eGFR (calculated from the MDRD study equation) and eCrCl (calculated from the Cockcroft-Gault equation) are based on different parameters and may not yield comparable results. If eCrCl result is absurd, please check patient's height/weight. eGFR > 60 Chronic Kidney Disease: Estimated GFR < 60 mL/min/1.73m2 Severe Kidney Disease: Estimated GFR < 15 mL/min/1.73m2 Glucose, Random 129 H 60-115 mg/dL CA 8.5 # 8.4-10.2 mg/dL Magnesium 1.8 1.6-2.6 mg/dL Total Bili 0.6 0.0-1.0 mg/dL AST (GOT) 45 H 5-31 U/L ALT (GPT) 26 0-31 U/L Protein, Total 6.5 6.5-8.0 g/dL Alb 4.0 3.5-5.0 g/dL Alk Phos 72 39-117 U/L Coding Level of Care Code Est Pt Level 4 (04749) Complex EM visit Add On G2211 Diagnoses Hx of fall Z91.81 Acquired hypothyroidism E03.9 Additional Codes ANJANA-7 Assessment Billing - ANJANA-7 Assessment Tool: ANJANA-7 Assessment 66327 ([id number]) Assessment & Plan Assessment & Plan (1) Hx of fall: Code(s): Z91.81 - History of falling (2) Acquired hypothyroidism: Code(s): E03.9 - Hypothyroidism, unspecified Category: Medical Plan 1. History of Fall The patient is recovering from a recent fall and uses a walker for assistance. This may have been precipitated by weakness from a COVID-19 infection. Plan: Continue use of walker as needed for safety and stability. The patient requires help with housework and grocery shopping following her rehabilitation. Plan: Provided the patient with [facility] care [facility]. Advised her to inform them of her recent discharge from rehab. If a physician's order is needed, their office should contact us with the specific requirements. 2. Hypothyroidism The patient is stable on levothyroxine 88 mcg. Plan: Recheck TSH levels with labs scheduled for October 28. Vaccinations: The patient is up to date on flu, COVID-19, RSV, and shingles vaccines. Advised her that a repeat COVID-19 vaccine can be administered 3 months after her recent infection. Follow-up: Rescheduled her upcoming November 13 appointment to February for convenience. Labs will be drawn on October 28. Plan: Ordered a complete blood count, lipid panel, comprehensive metabolic panel (to re-evaluate sodium and liver function), TSH, and vitamin D level. Patient was informed and verbally consented to the use of an ambient scribe for clinic note documentation during this visit.
[2025-10-07 14:16] VITALS: BP 128/70; PULSE 77; RESP 16; TEMP 36.8; O2SAT 94; BMI 24.2
== END 2025-10-07 14:45 | disposition home or self-care (01) ==
LOC: HO.HMCC 13:05
PROVIDERS: PCP Internal Medicine; Visit Provider Internal Medicine
DX: Z91.81 History of falling (principal); E03.9 Hypothyroidism, unspecified

== ENCOUNTER → 2025-10-07 13:05 | Outpatient (BNVA) | payer MEDICARE, MEDICAID, SELFPAY | PROVIDERS: PCP Internal Medicine; Visit Provider Internal Medicine | DX: Z09 Encounter for follow-up examination after completed treatment for conditions other than malignant neoplasm (principal); E03.9 Hypothyroidism, unspecified; Z91.81 History of falling; Z13.39 Encounter for screening examination for other mental health and behavioral disorders | CPT/HCPCS: 96127; 99212 ==

== ENCOUNTER 2025-11-04 14:25 | Outpatient (AMB) | payer MEDICARE, MEDICAID, SELFPAY ==
--- NOTE | 2025-11-04 14:28 | MHC.OFFVISPS ---
Intake Intake Visit Reasons: consultation Transmission Rebuilder Required: No Allergies No Known Allergies Allergy (Verified 10/07/25 14:32) Medication List - Last Reconciled 11/04/25 by Estefani Julio APRN acetaminophen 1,000 mg (2 x 500 mg) PO .q8 PRN atorvastatin 20 mg PO BEDTIME cholecalciferol (vitamin D3) (Vitamin D3) 25 mcg PO DAILY fluoxetine 80 mg (2 x 40 mg) PO DAILY ibuprofen 600 mg PO Q8H PRN levothyroxine 88 mcg PO DAILY@0630 timolol maleate 0.5% 1 drp ophthalmic (eye) DAILY HPI- Psychiatric Chief Complaint: consultation HPI Narrative: Pt is an 85 year old Sr of [facility] referred by her PCP for an evaluation of OCD and use of prozac 80mg daily. Pt has been concerned about the dose as she ages and has tried several times to reduce the dose; She reports she has tried to slowly taper it twice under the guidance of her PCP and after either being off it or on a lower dose her anxiety and symptoms increase. She is curretnly taking the prozac 80mg daily. She reports a lifelong histroy of OCD symptoms. 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 She left after a few yearas and became an [employer]. She was finally treated with meds in the late or early 1989. She was trialed on lithium and MAIOs but neither helped. She was started on prozac in [facility]. She has been off and on prozac since then. She has been on Prozac 80 mg for some time. She reports it does not reduce her compulsions, rituals, or intrusive thoughts but decreases the distress aroound them and helps her anxiety. She has fewer panic attacks with the prozac 80mg daily. She thinks the only side effects she has noticed are vivid dreamsand some trouble falling asleep. In the past she has taken benadryl to fall asleep but has not needed to for some time. She sleeps 11pm to 4 or 5am. She exprience OCD symptoms that include checking behaviors, hand washing, picking things up off the street that she deems dangerous for others, visual tourettic compulsions, and compulsions to confess several times a day. She has been encouraged to come to confession once a week if possible. She attends [employer] every day. These PCD ritual and compulsions cause her significant distress, shame, anxiety and the urge to withdraw from other. She reports that when theyincrease or the distress increases she can feel very depressed. Her current PHQ9=9 and her GAD7 = 7. She denies SI or HI. Past Psychiatric History: outpatient psych and brief therapy both individual and group past med trials: prozac, MAIOs and lithium Subjective Subjective Medication Compliance: Yes Side effects from medications: No Review of Systems Medical Review of Systems: unchanged Mental Status Exam Mental Status Exam Patient Appearance: Well Grooomed and Appropriate Patient Orientation: Person, Place, Time and Situation Level of Consciousness: Awake, Appropriate and Alert Patient Behavior: Appropriate, Cooperative, Anxious (mild) and Good Eye Contact Mood Description: Appropriate and Anxious (mild) Affect Description: Appropriate and Cheerful Patient Cognition Impaired: No Ability to Follow Directions: Excellent Speech Pattern: Clear and Appropriate Memory Description: Intact Hallucinations: None Delusions: Not Present Thought Process: Intact and Distracted Thought Content: positive for Intact, positive for Obsessional Thoughts and positive for Preoccupation Judgement: Good Assessment and Plan Assessment & Plan (1) Obsessive-compulsive disorder: Status: Acute Qualifiers: Obsessive-compulsive disorder type: mixed obsessional thoughts and acts Qualified Code(s): F42.2 - Mixed obsessional thoughts and acts Code(s): F42.9 - Obsessive-compulsive disorder, unspecified (2) Generalized anxiety disorder: Status: Acute Code(s): F41.1 - Generalized anxiety disorder Plan Pts OCD is active and at such a level that causes significant distress effecting quality of life without the Prozac that I strongly recommend she continue the 80mg daily unless she were to develop persistent side effects. Her liver and kidney function per her labs in August 2025 are good, She has had one known episode of hyponatremia. I discussed that if she were to have episodic hyponatremia that could be a concern with prozac and may be a reason to reduce dosage or change to alternative agent. I also discussed with patient if she were to develop a bleeding disorder such as bleeding ulcer or other condition then that could be reason to lower dose or change to alternative agent. Her BP is stable. she has no known bleeding issues at this time. I did review her EKG from August and it showed RBBB, given that I would recommend considering consult with cardiology to rule out any other concerns. Given her good health and the severity of her OCD that she continue with the prozac 80mg daily. She may consider seeing a therapist who specializes in OCD as she has the cognitive skills to utiliZe therapy quite well. She read about OCD and learns about it on her own and could benefit from either individual or group therpay focused on OCD. The current risks of prozac even at 80mg daily outweigh the severe risks to her mental health and quality of life without it. Pt is currently in agreement with this plan. Counseling and coordination of Care Pt. Self Management counseling: Maintenance-social rhythm, Mindfulness, Sleep hygiene and General coping skills Medication management counseling: Effectiveness, Side effects, Dosing range, Duration, Drug interaction and Adherence Diagnosis and Prognosis Counseling: Accuracy of diagnosis, Prognosis over time, Impact of diagnosis on life functions, Impact of family relationship, Problematic behaviors secondary to diagnosis and Adequacy of current interventions Details: I spent 90 minutes reviewing the record, seeing the patient and documenting in the medical record. Counseling provided to the patient/caregiver as outlined below. Addressed patient/caregiver concerns regarding current medication regime including effective adherence. Addressed patient/caregiver concerns regarding diagnosis and prognosis including accuracy of diagnosis, prognosis over time, impact of diagnosis. Addressed patient/caregiver concerns regarding impact of recent stressors. [facility] Medical History Fracture of orbital floor with routine healing Hip pain, left Frequent falls Recurrent left knee instability Generalized anxiety disorder Left knee pain Frequent falls Anxiety and depression Glaucoma Impaired fasting glucose Hx of migraine headaches Pain of left calf Ocular migraine Hearing loss Mammogram declined Colonoscopy refused Obsessive-compulsive disorder Menopause Dyslipidemia Acquired hypothyroidism Surgical History No pertinent past surgical history Family History Father Substance use disorder Brother Substance use disorder Brother Substance use disorder Social History Household Members: None Housing: Other Housing Other:: independent living (in own apartment) Do you presently have visiting nurse or other home services: No Alcohol intake: never Patient Tobacco Use Status: Never used Tobacco e-Cigarette/Vaping Use: Never Used Advance Directives Date on File: 09/17/25 service: No Current occupational status: retired Cognitive needs: No Hearing needs: Yes Vision needs: Yes Social History: lives at [facility]. attends [facility] most days, spends time at [facility], independent with driving, shopping, ADLs. Substance History: none Trauma History: loss of father when pt a senior in high school Coding Level of Care Code Psych Diag Eval w/Med (10800) Diagnoses Mixed obsessional thoughts and acts F42.2 Obsessive-compulsive disorder type: mixed obsessional thoughts and acts Generalized anxiety disorder F41.1
--- OUTSIDE RECORDS SUMMARY | 2025-11-04 23:21 | XMS_ITS | Clinical Summary ---
Author Organization [address] [facility] Address [address] [place] [address] Phone Care Team Providers Care [employer] Programmer Name Role Phone Physician, No Pcp Primary Care Provider Unavaila ble Encounters Date Type Department Care Team Description 09/30/2025 Lab Requisition [facility] Lab [address] [place] [address] Chito Sandoval MD Anemia, unspecified 09/23/2025 Lab Requisition [facility] Lab [address] [place] [address] Chito Sandoval MD Anemia, unspecified from Last 3 Months Social History Tobacco Use Types Packs/Day Years Used Date Smoking Tobacco: Never Assessed Comments Unknown Sex and Gender Information Value Date Recorded Sex Assigned at Not on file Legal Sex Female 3:49 AM EST Gender Identity Not on file Sexual Orientation Not on file Plan of Treatment Health Maintenance Due Date Last Done Comments DTaP,Tdap,and Td Vaccines (1 - Tdap) 1959 Pneumococcal Vaccine: 50+ Ye ars (1 of 1 - PCV) 1989 Zoster Vaccines (1 of 2) 1989 RSV Immunization Adult Patie nts (1 - 1-dose 75+ series) 2014 Depression Screening 11/28/2024 COVID-19 Vaccine (1 - 2024-2 6 season) 2025 Influenza Vaccine (#1) 2025 Falls Risk Assessment 09/19/2025 Medicare Annual Wellness Visit 09/19/2025 Osteoporosis Screening (Bone Density Screening) 09/19/2025 Social Influencers of Health Screening 09/19/2025 HIB Vaccines Aged Out No longer eligi ble based on patient's age to complete this topic HPV Vaccines Aged Out No longer eligi ble based on patient's age to complete this topic Hepatitis A Vaccines Aged Out No long er eligible based on patient's age to complete this topic Hepatitis B Vaccines Aged Out No long er eligible based on patient's age to complete this topic IPV Vaccines Aged Out No longer eligi ble based on patient's age to complete this topic MMR Vaccines Aged Out No longer eligi ble based on patient's age to complete this topic Meningococcal ACWY Vaccine Aged Out N o longer eligible based on patient's age to complete this topic Meningococcal B Vaccine Aged Out No l onger eligible based on patient's age to complete this topic RSV Immunization Patients Un desiree 20 months Aged Out No longer eligible b ased on patient's age to complete this topic Varicella Vaccines Aged Out No longer eligible based on patient's age to complete this topic Procedures Procedure Name Priority Date/Time Associated Diagnosis Comments COMPREHENSIVE METABOLIC PANEL Routine 09/24/2025 8:01 AM EDT Anemia, unspecified COMPLETE BLOOD COUNT Routine 09/24/2025 8:01 AM EDT Anemia, unspecified from Last 3 Months Results * (ABNORMAL) Complete blood count (09/24/2025 8:01 AM EDT) WBC 6.6 4.8 - 10.8 K/mcL LAB HEMETOLOGY METHOD 09/24/2025 11:[address] [facility] RBC 4.00 3.80 - 4.80 M/mcL LAB HEMETOLOGY METHOD 09/24/2025 11:[address] [facility] Hemoglobin 12.3 11.5 - 16.0 g/dL LAB HEMETOLOGY METHOD 09/24/2025 11:[address] [facility] Hematocrit 38.7 35.0 - 47.0 % LAB HEMETOLOGY METHOD 09/24/2025 11:[address] [facility] MCV 97.7 79.0 - 98.0 FL LAB HEMETOLOGY METHOD 09/24/2025 11:[address] [facility] MCH 31.1 27.0 - 32.0 pcg LAB HEMETOLOGY METHOD 09/24/2025 11:10 AM EDT [facility] MCHC 31.8(L) 32.0 - 37.0 g/dL LAB HEMETOLOGY METHOD 09/24/2025 11:10 AM EDT [facility] RDW 11.9 11.0 - 15.0 % LAB HEMETOLOGY METHOD 09/24/2025 11:10 AM EDT [facility] Platelets 319 130 - 400 K/mcL LAB HEMETOLOGY METHOD 09/24/2025 11:10 AM EDT [facility] MPV 10.2 7.0 - 11.0 FL LAB HEMETOLOGY METHOD 09/24/2025 11:10 AM EDT [facility] NRBC 0.0 <1.0 % LAB HEMETOLOGY METHOD 09/24/2025 11:10 AM EDT [facility] NRBC Absolute 0.00 <0.10 K/mcL LAB HEMETOLOGY METHOD 09/24/2025 11:[address] [facility] Blood Venous blood specimen / Unknown Venipuncture / Unknown 09/24/2025 8:01 AM EDT 09/24/2025 9:42 AM EDT Chito Sandoval MD LAB BLOOD ORDERABLES Final Result [facility] [address] [place] [address], * (ABNORMAL) Comprehensive metabolic panel (09/24/2025 8:01 AM EDT) Sodium 136 133 - 145 mmol/L LAB CHEMISTRY METHOD 09/24/2025 11:44 AM EDT [facility] Potassium 4.7 3.5 - 5.5 mmol/L LAB CHEMISTRY METHOD 09/24/2025 11:44 AM EDT [facility] Chloride 100 96 - 110 mmol/L LAB CHEMISTRY METHOD 09/24/2025 11:[address] [facility] CO2 31 21 - 32 mmol/L LAB CHEMISTRY METHOD 09/24/2025 11:[address] [facility] Anion Gap 5 3 - 11 LAB CHEMISTRY METHOD 09/24/2025 11:[address] [facility] Glucose 84 70 - 100 mg/dL LAB CHEMISTRY METHOD 09/24/2025 11:[address] [facility] BUN 16 5 - 25 mg/dL LAB CHEMISTRY METHOD 09/24/2025 11:[address] [facility] Creatinine 0.61 0.50 - 1.10 mg/dL LAB CHEMISTRY METHOD 09/24/2025 11:[address] [facility] eGFR 87 >=60 mL/min/1. 73m2 LAB CHEMISTRY METHOD 09/24/2025 11:[address] [facility] Comment:Calculation based on the Chronic Kidney Disease Epidemiology Collaboration (CKD-EPI) equation refit without adjustment for race. BUN/Creatinine Ratio 26.2 LAB CHEMISTRY METHOD 09/24/2025 11:[address] [facility] Calcium 9.6 8.5 - 10.5 mg/dL LAB CHEMISTRY METHOD 09/24/2025 11:[address] [facility] AST (SGOT) 22 10 - 42 unit/L LAB CHEMISTRY METHOD 09/24/2025 11:[address] [facility] ALT (SGPT) 28 10 - 60 unit/L LAB CHEMISTRY METHOD 09/24/2025 11:[address] [facility] Alkaline Phosphatase 122(H) 42 - 121 unit/L LAB CHEMISTRY METHOD 09/24/2025 11:[address] [facility] Total Protein 6.6 6.0 - 8.0 g/dL LAB CHEMISTRY METHOD 09/24/2025 11:[address] [facility] Albumin 3.5 3.2 - 5.0 g/dL LAB CHEMISTRY METHOD 09/24/2025 11:44 AM EDT [facility] Total Bilirubin 0.6 0.0 - 1.4 mg/dL LAB CHEMISTRY METHOD 09/24/2025 11:44 AM EDT [facility] Blood Venous blood specimen / Unknown Venipuncture / Unknown 09/24/2025 8:01 AM EDT 09/24/2025 9:42 AM EDT us Chito Sandoval MD LAB BLOOD ORDERABLES Final Result [facility] [address] [place] [address], [place] [phone] from Last 3 Months Insurance MEDICAID - [place] MEDICARE Care Teams [employer] Programmer Relationship Specialty Start Date End Date Physician, No Pcp PCP - General 09/24/25
--- OUTSIDE RECORDS SUMMARY | 2025-11-04 23:21 | XMS_ITS | Encounter Summary ---
Author Organization [facility] Address [address] [place] [address] Care Team Providers Care Jewish Thought Professor Name Role Phone Physician, No Pcp Primary Care Provider Unavaila ble Encounter Details Date Type Department Care Team (Late st Contact Info) Description 09/30/2025 Lab Requisition [facility] - Main Lab [address] [place] [address] Chito Sandoval MD [address] [place] [address] Anemia, unspecified Social History Tobacco Use Types Packs/Day Years Used Date Smoking Tobacco: Never Assessed Comments Unknown Sex and Gender Information Value Date Recorded Sex Assigned at Not on file Legal Sex Female 3:49 AM EST Gender Identity Not on file Sexual Orientation Not on file documented as of this encounter Plan of Treatment Not on file documented as of this encounter Visit Diagnoses Diagnosis Anemia, unspecified documented in this encounter Care Teams Jewish Thought Professor Relationship Specialty Start Date End Date Physician, No Pcp PCP - General 09/24/25 documented as of this encounter
--- OUTSIDE RECORDS SUMMARY | 2025-11-04 23:21 | XMS_ITS | Encounter Summary ---
Author Organization [facility] Address [address] [place] [address] Care Team Providers Care [employer] Leak Tester Name Role Phone Physician, No Pcp Primary Care Provider Unavaila ble Encounter Details Date Type Department Care Team (Late st Contact Info) Description 09/23/[address] [facility] - [facility] Lab [address] [facility] [place] [address] Chito Sandoval MD [place], [place] [id number] Anemia, unspecified Social History Tobacco Use Types Packs/Day Years Used Date Smoking Tobacco: Never Assessed Comments Unknown Sex and Gender Information Value Date Recorded Sex Assigned at Not on file Legal Sex Female 3:49 AM EST Gender Identity Not on file Sexual Orientation Not on file documented as of this encounter Plan of Treatment Not on file documented as of this encounter Procedures Procedure Name Priority Date/Time Associated Diagnosis Comments COMPLETE BLOOD COUNT Routine 09/24/2025 8:01 AM EDT Anemia, unspecified COMPREHENSIVE METABOLIC PANEL Routine 09/24/2025 8:01 AM EDT Anemia, unspecified documented in this encounter Results * (ABNORMAL) Comprehensive metabolic panel (09/24/2025 8:01 AM EDT) Sodium 136 133 - 145 mmol/L LAB CHEMISTRY METHOD 09/24/2025 11:44 AM T [facility] Potassium 4.7 3.5 - 5.5 mmol/L LAB CHEMISTRY METHOD 09/24/2025 11:44 AM T [facility] Chloride 100 96 - 110 mmol/L LAB CHEMISTRY METHOD 09/24/2025 11:44 AM [facility] CO2 31 21 - 32 mmol/L LAB CHEMISTRY METHOD 09/24/2025 11:44 AM [facility] Anion Gap 5 3 - 11 LAB CHEMISTRY METHOD 09/24/2025 11:44 AM [facility] Glucose 84 70 - 100 mg/dL LAB CHEMISTRY METHOD 09/24/2025 11:44 AM [facility] BUN 16 5 - 25 mg/dL LAB CHEMISTRY METHOD 09/24/2025 11:44 AM [facility] Creatinine 0.61 0.50 - 1.10 mg/dL LAB CHEMISTRY METHOD 09/24/2025 11:44 AM [facility] eGFR 87 >=60 mL/min/1. 73m2 LAB CHEMISTRY METHOD 09/24/2025 11:44 AM [facility] Comment:Calculation based on the Chronic Kidney Disease Epidemiology Collaboration (CKD-EPI) equation refit without adjustment for race. BUN/Creatinine Ratio 26.2 LAB CHEMISTRY METHOD 09/24/2025 11:44 AM [facility] Calcium 9.6 8.5 - 10.5 mg/dL LAB CHEMISTRY METHOD 09/24/2025 11:44 AM [facility] AST (SGOT) 22 10 - 42 unit/L LAB CHEMISTRY METHOD 09/24/2025 11:44 AM [facility] ALT (SGPT) 28 10 - 60 unit/L LAB CHEMISTRY METHOD 09/24/2025 11:44 AM [facility] Alkaline Phosphatase 122(H) 42 - 121 unit/L LAB CHEMISTRY METHOD 09/24/2025 11:44 AM [facility] Total Protein 6.6 6.0 - 8.0 g/dL LAB CHEMISTRY METHOD 09/24/2025 11:44 AM [facility] Albumin 3.5 3.2 - 5.0 g/dL LAB CHEMISTRY METHOD 09/24/2025 11:44 AM [facility] Total Bilirubin 0.6 0.0 - 1.4 mg/dL LAB CHEMISTRY METHOD 09/24/2025 11:44 AM [facility] Blood Venous blood specimen / Unknown Venipuncture / Unknown 09/24/2025 8:01 AM EDT 09/24/2025 9:42 AM EDT Chito Sandoval MD LAB BLOOD ORDERABLES Final Result [facility] [address] [place] [address], * (ABNORMAL) Complete blood count (09/24/2025 8:01 AM EDT) WBC 6.6 4.8 - 10.8 K/mcL LAB HEMETOLOGY METHOD 09/24/2025 11:10 AM [facility] RBC 4.00 3.80 - 4.80 M/[facility] LAB HEMETOLOGY METHOD 09/24/2025 11:10 AM [facility] Hemoglobin 12.3 11.5 - 16.0 g/dL LAB HEMETOLOGY METHOD 09/24/2025 11:10 AM [facility] Hematocrit 38.7 35.0 - 47.0 % LAB HEMETOLOGY METHOD 09/24/2025 11:10 AM [facility] MCV 97.7 79.0 - 98.0 FL LAB HEMETOLOGY METHOD 09/24/2025 11:10 AM [facility] MCH 31.1 27.0 - 32.0 pcg LAB HEMETOLOGY METHOD 09/24/2025 11:10 AM [facility] MCHC 31.8(L) 32.0 - 37.0 [...] Result [facility] [address] [place] [address], documented in this encounter Visit Diagnoses Diagnosis Anemia, unspecified documented in this encounter Care Teams [employer] Leak Tester Relationship Specialty Start Date End Date Physician, No Pcp PCP - General 09/24/25 documented as of this encounter
== END 2025-11-04 15:28 | disposition home or self-care (01) ==
LOC: HO.HOP 14:25
PROVIDERS: PCP Internal Medicine; Visit Provider Clinical Nurse Specialist Psychiatric/Mental Health
DX: F42.2 Mixed obsessional thoughts and acts (principal); F41.1 Generalized anxiety disorder
CPT/HCPCS: 90792

== ENCOUNTER → 2025-11-04 14:25 | Outpatient (BNVA) | payer MEDICARE, MEDICAID, SELFPAY | PROVIDERS: PCP Internal Medicine; Visit Provider Clinical Nurse Specialist Psychiatric/Mental Health | DX: F42.2 Mixed obsessional thoughts and acts (principal); F41.1 Generalized anxiety disorder; Z71.89 Other specified counseling | CPT/HCPCS: 90792 ==